=== PATIENT | male | born 1940 | race Caucasian/White ===

== ENCOUNTER → 2016-04-22 | Outpatient (CLI) | payer OTHER ==
[~2016-04-22] MED LIST: EZET10TA63 PO; IBUP-103 PO; LISI-461 PO; LXP/10 PO; MISCTAB78 PO; MULTTAB PO; OMEG10007 PO
--- NOTE | 2016-04-22 10:07 | DIAGNOSTIC IMAGING REPORT ---
KUB CLINICAL HISTORY: N40.1 Benign prostatic hypertrophy with urinary [id number] urinary tract obstruction. Pain. COMPARISON STUDY: 05/03/2011 FINDINGS: The soft tissues, psoas shadows, renal outlines and intestinal gas pattern appear normal. There is no evidence for bowel obstruction. No abnormal abdominal calcifications are seen. IMPRESSION: Normal study. note is made of degenerative changes of the lumbar spine stable from the prior exam Electronically signed by: Crow Arroyo M.D. 04/22/2016 10:06 AM Dictated Date/Time: 04/22/2016 10:05 AM
== END | disposition home or self-care (01) ==
LOC: C.RAD 09:29
PROVIDERS: ATTEND Urology
DX: N40.1 Benign prostatic hyperplasia with lower urinary tract symptoms (principal); M47.816 Spondylosis without myelopathy or radiculopathy, lumbar region

== ENCOUNTER → 2016-07-05 | Outpatient (CLI) | payer OTHER ==
[2016-07-05 12:46] LABS: CHOLESTEROL/HDL RATIO 4.9
[2016-07-05 13:37] LABS: CALCIUM 9.7 mg/dl (8.5-10.1)
[2016-07-05 13:38] LABS: ALT/SGPT 30 U/L (12-78); BLOOD UREA NITROGEN 23 mg/dl (7-18); BUN/CREATININE RATIO 19.3 (10-20); CARBON DIOXIDE 28 mmol/L (21-32); CHLORIDE 105 mmol/L (98-107); GLUCOSE 92 mg/dl (70-99); POTASSIUM 4.5 mmol/L (3.5-5.1); SODIUM 139 mmol/L (136-145)
[2016-07-05 13:41] LABS: ALB/GLOB RATIO 0.9 (0.9-2); ALKALINE PHOSPHATASE 88 U/L (45-117); AST/SGOT 29 U/L (15-37)
== END | disposition home or self-care (01) ==
LOC: C.LABPVFM 10:30
PROVIDERS: ATTEND Family Medicine
DX: E78.2 Mixed hyperlipidemia (principal)

== ENCOUNTER → 2016-08-19 | Outpatient (CLI) | payer OTHER | END | disposition home or self-care (01) | LOC: C.LABSPEC 11:24 | PROVIDERS: ATTEND Urology | DX: R33.9 Retention of urine, unspecified (principal) ==

== ENCOUNTER → 2017-05-31 | Outpatient (CLI) | payer OTHER | END | disposition home or self-care (01) | LOC: C.LABSPEC 17:18 | PROVIDERS: ATTEND Urology | DX: N20.0 Calculus of kidney (principal) ==

== ENCOUNTER → 2017-06-24 | Outpatient (CLI) | payer OTHER ==
[2017-06-24 10:07] LABS: ALBUMIN 3.3 gm/dl (3.4-5.0); ALT/SGPT 46 U/L (12-78); AST/SGOT 35 U/L (15-37); BLOOD UREA NITROGEN 24 mg/dl (7-18); CALCIUM 9.3 mg/dl (8.5-10.1); CARBON DIOXIDE 31 mmol/L (21-32); CREATININE 1.21 mg/dl (0.60-1.40); GLUCOSE 103 mg/dl (70-99); POTASSIUM 4.2 mmol/L (3.5-5.1); SODIUM 138 mmol/L (136-145)
[2017-06-24 10:10] LABS: ALKALINE PHOSPHATASE 99 U/L (45-117); CHOLESTEROL 161 mg/dl (0-200); LDL CHOLESTEROL CALCULATED 98 mg/dl; TOTAL PROTEIN 7.4 gm/dl (6.4-8.2)
== END | disposition home or self-care (01) ==
LOC: C.LAB 08:55
PROVIDERS: ATTEND Neuromusculoskeletal Medicine & OMM
DX: I10 Essential (primary) hypertension (principal); E78.2 Mixed hyperlipidemia

== ENCOUNTER 2022-08-20 04:07 | Inpatient (IN) ==
[2022-08-20] MEDS ORDERED: ASPIRIN CHEW 324 MG PO STA (04:11)
--- NOTE | 2022-08-20 04:52 | Emergency Department Note ---
Impression & Plan Non-ST elevated myocardial infarction (non-STEMI) ED Provider Note CHIEF COMPLAINT: Chest pain HISTORY OF PRESENT ILLNESS: This 82-year-old male patient with past medical history of hypertension, hyperlipidemia, phimosis, GERD, osteoarthritis and prostatic hypertrophy presents to the emergency department with complaints of substernal chest pressure without radiation. Patient states he has had sweats and chills since yesterday. His states he felt quite warm. She did not take his temperature. He did take some Advil but had vomiting shortly thereafter. Patient has not had any significant diarrhea. He denies cough or shortness of breath. REVIEW OF SYSTEMS: A review of systems was performed with positives and pertinent negatives listed in the history of present illness. 10 systems were reviewed and are otherwise negative. ALLERGIES: see below MEDICATIONS: see below PMH: see below SOCIAL HISTORY: see below DDx:Cardiac ischemia, aortic dissection, pulmonary embolism, pneumothorax, pneumonia, pericarditis, myocarditis, esophageal rupture, GERD, cholecystitis, pancreatitis, musculoskeletal, as well as other pathologies. PHYSICAL EXAM: Vital signs reviewed. General: Well-appearing 82-year-old male, in no significant distress. HEENT: No scleral icterus, PERRLA, neck supple. Moist mucous membranes Cardiovascular: Regular rate and rhythm, no extra sounds. Pulmonary: Clear to auscultation bilaterally, normal work of breathing. Abdomen: Soft, nontender, nondistended, positive bowel sounds. Musculoskeletal: Atraumatic, no peripheral edema. Neurologic: Patient awake alert and oriented x 3, speech is clear Skin: Warm, dry, no rash EMERGENCY DEPARTMENT COURSE/MDM: This patient was evaluated and appeared to be in no significant distress. IV access was obtained and laboratory work was drawn. Patient was pain-free at the time of my evaluation. External medical records were reviewed. Patient was given aspirin 324 mg to chew. EKG reveals a nonspecific ST change without elevation. Chest x-ray was performed and to my interpretation reveals pulmonary vascular congestion. He was given 20 mg of IV Lasix. Laboratory work reveals an elevated high-sensitivity troponin at 1700. Patient remained pain-free and was started on IV heparin drip. Case was discussed with the hospitalist service who will evaluate the patient for admission and further management. Patient and were informed of the findings and agreed. MONITORING: An order for cardiac monitoring was placed and the patient is noted to be in a normal sinus rhythm at 86 beats per minute. RADIOLOGY: Chest x-ray to my interpretation reveals pulmonary vascular congestion, otherwise defer to radiology EKG: To my interpretation reveals a sinus rhythm at [address] abnormality. QTc is 419. No PVC, no PAC. DISPOSITION: Home I have personally spent 35 minutes of critical care time in the direct management of this patient. This was a life/limb threatening event. This 35 minutes is in excess of all separately billable procedures. Past Med/Surg History Medical History Actinic keratosis Nephrolithiasis UTI (urinary tract infection) Surgical History S/P tonsillectomy Status post laser lithotripsy of ureteral calculus Family History Grandfather Colorectal cancer Denies family history of Ovarian cancer Prostate cancer Myocardial infarction Breast cancer Social History Smoking Status: Never smoker Tobacco Type: Cigars Age Started Using Tobacco: 14; Age Quit Using Tobacco: 19; Cigarettes Per Day: JUST HERE AND THERE MOSTLY CIGARS; Second Hand Exposure: No; Do You Dip or Chew Tobacco: No; Hx Alcohol Use: No Hx Substance Use: No Preferred Language: Northern Irish Communication Ability: Effective Visual Impairment: No Limitations Hearing Ability: Use of Hearing Aid marital status: Current Living Situation: Spouse current occupational status: retired 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 Feels Safe at Home: Yes Childhood Exposure to Second-Hand Smoke: No Diet: regular Dental Care, Regularly: Yes Physical Activity Frequency: 5-6 Times per Week Seatbelt Use: always Sunscreen Use: Yes Allergies Allergies Allergy/AdvReac Type Severity Reaction Status Date / Time ragweed pollen Allergy Verified 08/04/22 09:53 Tetracyclines Allergy Verified 08/04/22 09:53 Home Meds Home Medications Medication Instructions Recorded Confirmed vitamins A,C,Y-xqnc-iblhdk 4,296 1 cap PO BID 12/13/18 08/04/22 mcg-226 mg-90 mg capsule (PreserVision AREDS) glucosamine [id number] 1 tab PO DAILY 12/15/18 08/04/22 frank 1,500 mg-400 unit-100 mg tablet (Osteo Bi-Flex (5-Loxin)) omega-3 fatty acids 1,000 mg 1,000 mg PO DAILY 12/15/18 08/04/22 capsule Previous Rx's Medication Instructions Recorded varicella-zoster glycoE [id number] 0.5 ml IM .COMPLEX #1 ea 08/26/21 adj(PF) 50 mcg/0.5 mL IM susp, kit (Shingrix (PF)) finasteride 5 mg tablet 5 mg PO DAILY #90 tabs 10/15/21 lisinopril 10 mg tablet See Rx Instructions .Route 01/07/22 .COMPLEX #90 tabs desonide 0.05 % topical ointment 1 applic topical BID #15 grams 01/22/22 diclofenac sodium 1 % topical gel 2 g topical QID PRN pain, moderate 02/25/22 #100 grams escitalopram oxalate 10 mg tablet 10 mg PO DAILY #90 tabs 06/04/22 (Lexapro) ezetimibe 10 mg tablet 10 mg PO DAILY #90 tabs 06/04/22 nitrofurantoin 100 mg PO Q12H 10 days #20 caps 08/09/22 monohydrate/macrocrystals 100 mg capsule (Macrobid) Results & Data (ED) Vital Signs Vital Signs - 24 hr 08/20/22 04:13 08/20/22 04:21 08/20/22 04:19 Temperature 37.6 C H Temperature Source Oral Pulse Rate 85 85 Respiratory Rate 20 18 Respiratory Effort / Characteristics Non-Labored Spontaneous Respiratory Depth Normal Blood Pressure 160/83 H Blood Pressure Mean 108 Pulse Oximetry 93 93 92 Oxygen Delivery Method Room Air Room Air Room Air Sepsis Recent Fever Within 48 Hours Yes Sepsis New/Unexplained Change in Mental Status N/A Sepsis Action Taken by Nursing No Action Required 08/20/22 04:30 08/20/22 04:20 Temperature Temperature Source Pulse Rate 86 89 Respiratory Rate 24 Respiratory Effort / Characteristics Respiratory Depth Blood Pressure 154/85 H Blood Pressure Mean 108 Pulse Oximetry 90 Oxygen Delivery Method Room Air Sepsis Recent Fever Within 48 Hours Sepsis New/Unexplained Change in Mental Status Sepsis Action Taken by Snf Medications Current Medication List: was personally reviewed by me Laboratory Data Attestation: I reviewed the patient's lab results. 08/20/22 04:26 08/20/22 04:27 Lab Results 08/20/22 08/20/22 08/20/22 Range/Units 04:26 04:26 04:27 WBC 11.64 H (4.8-10.8) K/ul RBC 4.74 (4.70-6.10) M/uL Hgb 14.8 (14.0-18.0) g/dl Hct 41.8 L (42.0-52.0) % MCV 88.2 (80.0-100.0) fL MCH 31.2 (25.0-34.0) pg MCHC 35.4 (32.0-36.0) g/dL RDW Std Deviation 43.7 (36.4-46.3) fL RDW Coeff of Bart 13.4 (11.5-14.5) % Plt Count 163 (130-400) K/uL MPV 11.2 (9.4-12.4) fL Immature Gran % (Auto) 0.3 % Neut % (Auto) 80.7 % Lymph % (Auto) 8.2 % Larimer % (Auto) 7.7 % Eos % (Auto) 3.0 % Baso % (Auto) 0.1 % Neut # (Auto) 9.40 H (1.40-6.50) K/uL Lymph # (Auto) 0.95 L (1.2-3.4) K/uL Larimer # (Auto) 0.90 H (0.11-0.59) K/uL Eos # (Auto) 0.35 (0-0.50) K/uL Baso # (Auto) 0.01 (0-0.2) K/uL Immature Gran # (Auto) 0.03 (0.01-0.20) K/uL APTT (21.0-31.0) Seconds PTT Ratio Sodium 135 L (136-145) mmol/L Potassium 4.2 (3.5-5.1) mmol/L Chloride 102 (98-107) mmol/L Carbon Dioxide 23 (21-32) mmol/L Anion Gap 10 (3-11) BUN 30 H (6-23) mg/dl Creatinine 1.09 (0.6-1.4) mg/dl Est Cr Clr Drug Dosing 58.6 ml/min Est GFR ( Amer) 71.9 ml/min Est GFR (Non-Af Amer) 62.0 ml/min BUN/Creatinine Ratio 27.5 H (10-20) Glucose 115 H (70-99(Fasting)) mg/dl Calcium 9.3 (8.6-10.3) mg/dl Total Bilirubin 0.8 (0.2-1.0) mg/dl AST 50 H (13-39) U/L ALT 30 (7-52) U/L Alkaline Phosphatase 66 (34-104) U/L Troponin I High Sens 1718.3 H* (0-20) pg/ml Total Protein 7.3 (6.0-8.3) gm/dl Albumin 3.6 (3.4-5.0) gm/dl Globulin 3.7 (2.5-4.0) gm/dl Albumin/Globulin Ratio 1.0 (0.9-2) Lipase 13 (11-82) U/L SARS-CoV-2, RNA, NAAT NEGATIVE (NEGATIVE) 08/20/22 Range/Units 04:27 WBC (4.8-10.8) K/ul RBC (4.70-6.10) M/uL Hgb (14.0-18.0) g/dl Hct (42.0-52.0) % MCV (80.0-100.0) fL MCH (25.0-34.0) pg MCHC (32.0-36.0) g/dL RDW Std Deviation (36.4-46.3) fL RDW Coeff of Bart (11.5-14.5) % Plt Count (130-400) K/uL MPV (9.4-12.4) fL Immature Gran % (Auto) % Neut % (Auto) % Lymph % (Auto) % Larimer % (Auto) % Eos % (Auto) % Baso % (Auto) % Neut # (Auto) (1.40-6.50) K/uL Lymph # (Auto) (1.2-3.4) K/uL Larimer # (Auto) (0.11-0.59) K/uL Eos # (Auto) (0-0.50) K/uL Baso # (Auto) (0-0.2) K/uL Immature Gran # (Auto) (0.01-0.20) K/uL APTT 27.9 (21.0-31.0) Seconds PTT Ratio 1.0 Sodium (136-145) mmol/L Potassium (3.5-5.1) mmol/L Chloride (98-107) mmol/L Carbon Dioxide (21-32) mmol/L Anion Gap (3-11) BUN (6-23) mg/dl Creatinine (0.6-1.4) mg/dl Est Cr Clr Drug Dosing ml/min Est GFR ( Amer) ml/min Est GFR (Non-Af Amer) ml/min BUN/Creatinine Ratio (10-20) Glucose (70-99(Fasting)) mg/dl Calcium (8.6-10.3) mg/dl Total Bilirubin (0.2-1.0) mg/dl AST (13-39) U/L ALT (7-52) U/L Alkaline Phosphatase (34-104) U/L Troponin I High Sens (0-20) pg/ml Total Protein (6.0-8.3) gm/dl Albumin (3.4-5.0) gm/dl Globulin (2.5-4.0) gm/dl Albumin/Globulin Ratio (0.9-2) Lipase (11-82) U/L SARS-CoV-2, RNA, NAAT (NEGATIVE) Administered Medications Heparin Sodium/Dextrose (Heparin Sodium/Dextrose) 25,000 units in 500 mls @ 20 mls/hr IV .Q24H [facility]; Protocol Stop: 09/19/22 05:44 Last Admin: 08/20/22 06:15 Dose: 1,000 units/hr, 20 mls/hr Documented By: ОЛЕГ Co-signed By: BS Discontinued Medications Aspirin (Aspirin Chew 324 Mg) 324 mg PO NOW STA Stop: 08/20/22 04:12 Last Admin: 08/20/22 04:23 Dose: 324 mg Documented By: ОЛЕГ Furosemide (Furosemide Inj 20 Mg/2 Ml Vial) 20 mg IV NOW STA Stop: 08/20/22 05:42 Last Admin: 08/20/22 06:02 Dose: 20 mg Documented By: ОЛЕГ Heparin Sodium (Porcine) (Heparin Sod (Porcine) 1000 Unit/Ml) 1 units IV NOW ONE Stop: 08/20/22 05:36 Last Admin: 08/20/22 06:14 Dose: 4,000 units Documented By: ОЛЕГ Co-signed By: GABRIELA Ondansetron HCl (Ondansetron Inj 2 Mg/Ml 2 Ml Vial) 4 mg IV NOW STA Stop: 08/20/22 05:43 Last Admin: 08/20/22 06:02 Dose: 4 mg Documented By: ОЛЕГ Discharge Plan Visit Data Chief Complaint: Chest Pain Stated Complaint: EXTREME CHEST PAIN ED Provider: Deb Hopkins Discharge Problem: Non-ST elevated myocardial infarction (non-STEMI) Forms Stand Alone Forms: My [facility] Prescriptions Prescriptions: No Action finasteride 5 mg tablet 5 mg PO DAILY Qty: 90 3RF lisinopril 10 mg tablet See Rx Instructions .ROUTE .COMPLEX Qty: 90 3RF Dose Instruction: TAKE 1 TABLET BY MOUTH DAILY Rx Instructions: TAKE 1 TABLET BY MOUTH DAILY diclofenac sodium 1 % gel 2 g topical QID PRN (Reason: pain, moderate) Qty: 100 5RF ezetimibe 10 mg tablet 10 mg PO DAILY Qty: 90 1RF escitalopram oxalate [Lexapro] 10 mg tablet 10 mg PO DAILY Qty: 90 1RF nitrofurantoin monohyd/m-cryst [Macrobid] 100 mg capsule 100 mg PO Q12H 10 Days Qty: 20 0RF Rx Instructions: must administer with a meal/food PreserVision AREDS 14,320-226-200 kjyp-hi-yzct capsule 1 cap PO BID rrlypkryvhm-M5-Cyntwvcoy serr [Osteo Bi-Flex (5-Loxin)] 1,500-400-100 mg-unit-mg tablet 1 tab PO DAILY omega-3 fatty acids 1,000 mg capsule 1,000 mg PO DAILY Shingrix (PF) 50 mcg/0.5 mL suspension for reconstitution 0.5 ml IM .COMPLEX Qty: 1 1RF Rx Instructions: 0.5 mL IM Apply once and then again 2-6 months later; desonide 0.05 % ointment 1 applic topical BID Qty: 15 0RF Rx Instructions: Apply sparingly to areas of the face twice daily as needed. Referrals Referrals: Teodoro Hooks, [Primary Care Provider] -
[2022-08-20 04:55] LABS: Basophils # (auto) 0.01 K/uL (0-0.2); Basophils % (auto) 0.1 %; Eosinophils # (auto) 0.35 K/uL (0-0.50); Hematocrit (blood only) 41.8 % (42.0-52.0); Hemoglobin 14.8 g/dl (14.0-18.0); Immature Granulocytes # (auto) 0.03 K/uL (0.01-0.20); Immature Granulocytes % (auto) 0.3 %; Lymphocytes # (auto) 0.95 K/uL (1.2-3.4); Lymphocytes % (auto) 8.2 %; Mean Corpuscular Hemoglobin 31.2 pg (25.0-34.0); Mean Corpuscular Hgb Conc 35.4 g/dL (32.0-36.0); Mean Corpuscular Volume 88.2 fL (80.0-100.0); Mean Platelet Volume 11.2 fL (9.4-12.4); Monocytes % (auto) 7.7 %; Neutrophils % (auto) 80.7 %; Platelet Count 163 K/uL (130-400); RDW Coefficient of Variation 13.4 % (11.5-14.5); RDW Standard Deviation 43.7 fL (36.4-46.3); Red Blood Count 4.74 M/uL (4.70-6.10); White Blood Count 11.64 K/ul (4.8-10.8)
[2022-08-20 05:03] LABS: Albumin Level 3.6 gm/dl (3.4-5.0); BUN Creatinine Ratio 27.5 (10-20); Bilirubin,Total 0.8 mg/dl (0.2-1.0); Calcium 9.3 mg/dl (8.6-10.3); Creatinine Clr Calc Pharmacy 58.6 ml/min; Est GFR (African American) 71.9 ml/min; Globulin 3.7 gm/dl (2.5-4.0); Potassium 4.2 mmol/L (3.5-5.1); Total Protein 7.3 gm/dl (6.0-8.3)
[2022-08-20] MEDS ORDERED: Heparin IV Adult Wt-Based Low-Dose WITH Bolus Protocol STA (05:20)
[2022-08-20 05:22] LABS: Troponin I High Sensitivity 1718.3 pg/ml (0-20)
[2022-08-20] MEDS ORDERED: HEPARIN SOD (PORCINE) 1000 UNIT/ML IV ONE (05:35)
[2022-08-20] MEDS ORDERED: FUROSEMIDE INJ 20 MG/2 ML VIAL IV STA (05:41)
[2022-08-20] MEDS ORDERED: ONDANSETRON INJ 2 MG/ML 2 ML VIAL IV STA (05:42)
[2022-08-20 06:00] LABS: Partial Thromboplastin Time 27.9 Seconds (21.0-31.0)
[2022-08-20] MEDS: HEPARIN SODIUM/DEXTROSE 25,000 UNITS/500 ML BAG IV SCH (06:15)
--- NOTE | 2022-08-20 07:41 | XRay Report ---
XR chest 1V portable CLINICAL HISTORY: Chest pain, nonspecific TECHNIQUE: Single frontal radiograph of the chest was obtained. Comparison: None available at the time of this dictation. FINDINGS: No lines and tubes are seen. Cardiomegaly is noted. The aortic arch is calcified. Prominence and ceph alization of the vasculature is seen. Right lower lung density likely represents a calcified granulom a. No evidence of pleural effusion or pneumothorax. IMPRESSION: Cardiomegaly and mild pulmonary edema. ACT 112: Negative or not required by law. Electronically signed by: Jose Devries M.D. 08/20/2022 7:40 AM
--- NOTE | 2022-08-20 08:43 | Electrocardiogram Report ---
Test Reason : Blood Pressure : / mmHG Vent. Rate : 080 BPM Atrial Rate : 080 BPM P-R Int : 164 ms QRS Dur : 088 ms QT Int : 364 ms P-R-T Axes : 024 -16 014 degrees QTc Int : 419 ms Normal sinus rhythm Minor ST depression in Anterolateral leads Abnormal ECG When compared with ECG of 04-OCT-2011 07:57, ST now depressed in Anterolateral leads Confirmed by El Muro ([id number]) on 08/20/2022 8:43:14 AM Referred By: REFERRED SELF Confirmed By:El Muro
[2022-08-20] MEDS ORDERED: MoRPHine SULFATE 2 MG/ML CARP IV PRN (08:54)
[2022-08-20] MEDS ORDERED: ALUMINUM/MAGNESIUM SUSP 30 ML UDC PO PRN (08:54)
[2022-08-20] MEDS ORDERED: NITROGLYCERIN SL 0.4 MG/TAB TAB SL PRN (08:54)
[2022-08-20] MEDS ORDERED: ACETAMINOPHEN 325 MG TAB PO PRN (08:54)
[2022-08-20] MEDS ORDERED: ONDANSETRON INJ 2 MG/ML 2 ML VIAL IV PRN (08:54)
[2022-08-20] MEDS: ASPIRIN 81 MG ECTAB PO SCH (09:58)
[2022-08-20] MEDS: ESCITALOPRAM OXALATE 10 MG TAB PO SCH (09:58)
[2022-08-20] MEDS: EZETIMIBE 10 MG TABLET PO SCH (09:59)
[2022-08-20] MEDS: FINASTERIDE 5 MG TAB PO SCH (09:59)
[2022-08-20] MEDS: lisinopril 10 MG TAB PO SCH (09:59)
--- NOTE | 2022-08-20 10:35 | Electrocardiogram Report ---
Test Reason : Blood Pressure : / mmHG Vent. Rate : 070 BPM Atrial Rate : 070 BPM P-R Int : 176 ms QRS Dur : 102 ms QT Int : 404 ms P-R-T Axes : 023 -20 040 degrees QTc Int : 436 ms Normal sinus rhythm Nonspecific ST abnormality Anterolateral leads When compared with ECG of 20-AUG-2022 04:14, ST depression in Anterolateral leads less pronounced Confirmed by El Muro ([id number]) on 08/20/2022 10:35:08 AM Referred By: REFERRED SELF Confirmed By:El Muro
--- NOTE | 2022-08-20 11:51 | History & Physical Report ---
Date of Service August 20, 2022 Assessment & Plan (1) Non-ST elevated myocardial infarction (non-STEMI): Plan: Elevated troponin with some lateral ST changes Concern for NSTEMI placed on heparin drip echocardiogram pending cardiology evaluation patient was given aspirin in the emergency department he continues on 81 a day With history of chronic control hypertension continues on lisinopril at this time . Lipidemia on Zetia History of BPH with lower urinary systems remains on Proscar. Depression patient is on Lexapro. Given low-grade temperature on presentation cardiology is hesitant to pursue catheterization to this end we will check secondary causes for metabolic issues trend his troponins and check inflammatory markers for the morning consideration of could be viral myocarditis Admission and Anticipated Discharge Date Admission Date: August 20, 2022 History of Present Illness Primary Care Provider: Teodoro Hooks, DO 82 M presents with feeling of fatigue, restlessness but not classic anginal symptoms, did vomit after taking advil. IN the Er found to have an elevated hst roponin to 1700, perhaps some lateral st changes. Pt had low grade temperature on admission, thus cardiology wishes to eval infectious etiology currently is symptom free on heparin gtt Allergies Allergy/AdvReac Type Severity Reaction Status Date / Time ragweed pollen Allergy Verified 08/20/22 12:39 Tetracyclines Allergy Verified 08/20/22 12:39 Home Medications Medication Instructions Recorded Confirmed Type vitamins A,C,B-qrso-laypdt 4,296 1 cap PO BID 12/13/18 08/20/22 History mcg-226 mg-90 mg capsule (PreserVision AREDS) glucosamine WTn-N8-Spuidvqfs 1 tab PO DAILY 12/15/18 08/20/22 History frank 1,500 mg-400 unit-100 mg tablet (Osteo Bi-Flex (5-Loxin)) omega-3 fatty acids 1,000 mg 1,000 mg PO DAILY 12/15/18 08/20/22 History capsule finasteride 5 mg tablet 5 mg PO DAILY #90 tabs 10/15/21 08/20/22 Rx lisinopril 10 mg tablet See Rx Instructions .Route 01/07/22 08/20/22 Rx .COMPLEX #90 tabs desonide 0.05 % topical ointment 1 applic topical BID #15 grams 01/22/22 08/20/22 Rx diclofenac sodium 1 % topical gel 2 g topical QID PRN pain, moderate 02/25/22 08/20/22 Rx #100 grams escitalopram oxalate 10 mg tablet 10 mg PO DAILY #90 tabs 06/04/22 08/20/22 Rx (Lexapro) ezetimibe 10 mg tablet 10 mg PO DAILY #90 tabs 06/04/22 08/20/22 Rx Past Med/Surg History Medical History Actinic keratosis Nephrolithiasis UTI (urinary tract infection) Surgical History S/P tonsillectomy Status post laser lithotripsy of ureteral calculus Family History Grandfather Colorectal cancer Denies family history of Ovarian cancer Prostate cancer Myocardial infarction Breast cancer Social History Smoking Status: Never smoker Tobacco Type: Cigars Age Started Using Tobacco: 14; Age Quit Using Tobacco: 19; Cigarettes Per Day: JUST HERE AND THERE MOSTLY CIGARS; Second Hand Exposure: No; Do You Dip or Chew Tobacco: No; Hx Alcohol Use: No Hx Substance Use: No Preferred Language: Portuguese Communication Ability: Effective Visual Impairment: No Limitations Hearing Ability: Use of Hearing Aid Private Inquiry Agent Required: No Beliefs That Will Affect Care: None marital status: Current Living Situation: Spouse current occupational status: retired 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 He appeared his stated age Vital signs as documented. Head exam is normocephalic atraumatic Neck is without JVD, thyromegaly, or carotid bruits. Lungs are clear to auscultation, no focal loss of breath sounds Cardiac exam, Rhythm is regular.. No murmurs, rubs or gallops. Abdominal exam reveals normal bowel sounds, soft non tender, no masses Extremities are nonedematous and both pedal pulses are present Neurologic exam is alert and oriented, no focal loss of strength or sensation Skin is without bruises or rashes Psychologically is without concerns for anxiety or depression.. Results & Data Results & Data Vital Signs (Past 12 Hours) Vital Signs Temp Pulse Pulse Resp BP BP Pulse Ox 08/20/22 11:38 97.7 F 56 L 18 128/73 90 08/20/22 09:25 66 08/20/22 08:56 08/20/22 08:50 97.3 F L 65 16 132/81 93 08/20/22 08:26 65 20 115/73 94 08/20/22 07:28 68 20 142/85 H 93 08/20/22 07:23 94 H 08/20/22 07:03 78 20 142/85 H 93 08/20/22 06:00 85 23 126/86 08/20/22 05:30 80 22 140/78 93 08/20/22 05:00 83 23 158/101 H 92 08/20/22 04:20 89 08/20/22 04:30 86 24 154/85 H 90 08/20/22 04:19 85 18 92 08/20/22 04:21 93 08/20/22 04:13 99.7 F H 85 20 160/83 H 93 O2 Del Method O2 Flow Rate 08/20/22 11:38 Room Air 08/20/22 09:25 08/20/22 08:56 Room Air, Nasal Cannula 2 08/20/22 08:50 Room Air 08/20/22 08:26 Nasal Cannula 2 08/20/22 07:28 Nasal Cannula 2 08/20/22 07:23 08/20/22 07:03 Room Air 08/20/22 06:00 08/20/22 05:30 Nasal Cannula 3 08/20/22 05:00 Nasal Cannula 1 08/20/22 04:20 08/20/22 04:30 Room Air 08/20/22 04:19 Room Air 08/20/22 04:21 Room Air 08/20/22 04:13 Room Air Laboratory Results Reviewed CBC reviewed chemistry reviewed troponin Code Status & VTE Plan VTE Prophylaxis Plan VTE Prophylaxis will be ordered: Yes PG Care Time/CCT Total # of Minutes Spent Total Time Spent with Patient: Total time spent is greater than 50% in coordination of care (as documented) at patient's floor/unit and/or counseling patient: Coding Level of Care Code 18688 INT INP/OBS CARE MIN Diagnoses Non-ST elevated myocardial infarction (non-STEMI) I21.4
--- NOTE | 2022-08-20 12:57 | Cardiology Consultation ---
Date of Consultation August 20, 2022 Assessment & Plan (1) Non-ST elevated myocardial infarction (non-STEMI): (2) Pyuria: (3) Leukocytosis: (4) Elevated temperature: Plan 82-year-old man with no prior cardiac history developed chest pain in the context of "shaking chills" and recent pyuria. Most likely, he does have significant underlying coronary artery disease based on demographic of advanced age alone, however it is not clear whether this is demand ischemia from the acute stress of illness or whether he in fact had a non-ST elevation MT as a primary event. Either way, in the absence of ongoing symptoms would be reluctant to send to cardiac catheterization with some risk of underlying bacteremia/infection. Fortunately, his troponin level was declining upon admission and he has been free of chest pain thus far during his hospitalization. Would continue aspirin, heparin, and lisinopril. Could hold on beta-jourdan given borderline bradycardia currently. Add statin at some point. Would monitor over the weekend and see if he declares either further signs of infection (check urinalysis, obtain blood cultures if any fevers) or an acute coronary syndrome. If there is no evidence of infection, could consider stress study or cardiac catheterization on Tuesday. If he develops recurrent chest pain with associated ECG changes, urgent cath might be required. Will ask Drs. Alegria/Odalys to check on the patient's status over the weekend. History of Present Illness Reason for Consultation: nstemi Requesting Physician: Ubaldo Lopez MD Attending Physician: Maximiliano Beauchamp MD History of Present Illness 82-year-old man with no prior cardiac history recently treated for initially asymptomatic urinary tract infection (still on nitrofurantoin) who had 2 separate episodes of "shaking chills" during which he experienced central chest discomfort, he felt well in between but after the second episode he reported to the emergency department where he had an elevated troponin (initially 1718, subsequently 1455), mildly dynamic anterolateral ST depression, and questionable mild pulmonary congestion on chest x-ray. At recent baseline, he is an active sy performing heavy physical activity with no constraints. He denies any baseline chest discomfort, dyspnea on exertion, palpitations, presyncope, or syncope. Around 2 AM yesterday morning he experienced his first episode of chills with associated chest discomfort, subsequently he vomited and felt better. During the day, he was able to eat without difficulty, his noted that she "pushed fluids" with Gatorade due to concerns about volume depletion after vomiting. He had no diarrhea. Earlier this morning he awoke with further chills and chest discomfort, in the emergency department his initial temperature was 99.7 and his white count was 11.64. Prior to these 2 episodes of chills/chest discomfort he was feeling well [place]. He denied any dyspnea on exertion, weight change, orthopnea, or PND. His noted that he "felt warm" but did not take his temperature at home. He denies any cough. At the time of his ER visit, he no longer had any chest pain. He has remained chest pain free since. Of note, the patient has had mild confusion and forgetfulness over the past day or so (for example, he did not remember having awoken with chills and chest pain the night before last), his notes that this forgetfulness/confusion is new for him, but a Mini-Mental status test from last year was abnormal. Patient had no somatic complaints at the time of my evaluation. Allergies Allergy/AdvReac Type Severity Reaction Status Date / Time ragweed pollen Allergy Verified 08/20/22 12:39 Tetracyclines Allergy Verified 08/20/22 12:39 Home Medications Medication Instructions Recorded Confirmed Type vitamins A,C,F-wapy-bxopan 4,296 1 cap PO BID 12/13/18 08/20/22 History mcg-226 mg-90 mg capsule (PreserVision AREDS) glucosamine [id number] 1 tab PO DAILY 12/15/18 08/20/22 History frank 1,500 mg-400 unit-100 mg tablet (Osteo Bi-Flex (5-Loxin)) omega-3 fatty acids 1,000 mg 1,000 mg PO DAILY 12/15/18 08/20/22 History capsule finasteride 5 mg tablet 5 mg PO DAILY #90 tabs 10/15/21 08/20/22 Rx lisinopril 10 mg tablet See Rx Instructions .Route 01/07/22 08/20/22 Rx .COMPLEX #90 tabs desonide 0.05 % topical ointment 1 applic topical BID #15 grams 01/22/22 08/20/22 Rx diclofenac sodium 1 % topical gel 2 g topical QID PRN pain, moderate 12/08/22 0 08/20/22 Rx #100 grams escitalopram oxalate 10 mg tablet 10 mg PO DAILY #90 tabs 06/04/22 08/20/22 Rx (Lexapro) ezetimibe 10 mg tablet 10 mg PO DAILY #90 tabs 06/04/22 08/20/22 Rx Patient History Medical History Actinic keratosis Nephrolithiasis UTI (urinary tract infection) Surgical History S/P tonsillectomy Status post laser lithotripsy of ureteral calculus Family History Grandfather Colorectal cancer Denies family history of Ovarian cancer Prostate cancer Myocardial infarction Breast cancer Social History Smoking Status: Never smoker Tobacco Type: Cigars Age Started Using Tobacco: 14; Age Quit Using Tobacco: 19; Cigarettes Per Day: JUST HERE AND THERE MOSTLY CIGARS; Second Hand Exposure: No; Do You Dip or Chew Tobacco: No; Hx Alcohol Use: No Hx Substance Use: No Preferred Language: Icelandic Communication Ability: Effective Visual Impairment: No Limitations Hearing Ability: Use of Hearing Aid Speed Belt Sander Tender Required: No Beliefs That Will Affect Care: None marital status: Current Living Situation: Spouse current occupational status: retired 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 Currently afebrile, 97.7 degrees. BP normotensive. Pulse 56 bpm and regular. Skin: no ecchymoses or generalized lesions. HEENT: unremarkable. Neck: JVP at the clavicle at 90 degrees, no carotid bruits. Lungs: clear. Cardiac: regular rhythm, normal S1-2, no murmur. Abdomen: benign. Extremities: no edema, pulses intact. Neurologic: normal affect, hard of hearing, forgetful but otherwise appropriate conversation, grossly nonfocal. Results & Data Laboratory Results Troponin and WBC as per HPI. Normal hemoglobin and platelet count. Sodium 135, otherwise normal electrolytes, BUN 30, creatinine 1.09. Diagnostic Findings Chest x-ray was read as "cardiomegaly and mild pulmonary edema". To my eye, this is a soft call, with no evidence of effusions and some vascular crowding that could be related to inspiratory effort. Initial ECG showed sinus rhythm with 0.[address] depression in the anterolateral leads, this is new compared with 2012 ECG. Repeat ECG shows sinus rhythm with some baseline wander complicating interpretation, there still appears to be mild anterolateral ST depression but it is perhaps less pronounced. PG Care Time/CCT Total # of Minutes Spent Total Time Spent with Patient: Total time spent is greater than 50% in coordination of care (as documented) at patient's floor/unit and/or counseling patient: Coding Level of Care Code 45718 IN/OBS CONSULT LVL 4,60M Diagnoses Non-ST elevated myocardial infarction (non-STEMI) I21.4 Pyuria R82.81 Leukocytosis D72.829 Elevated temperature R50.9
--- NOTE | 2022-08-20 14:45 | XCELERA ---
[id number]
[2022-08-20 15:44] LABS: Appearance Urine Clear (Clear); Bilirubin Urine Negative (Negative); Blood Urine Negative (Negative); Color Urine Yellow; Glucose Urine UA Negative (Negative); Ketones Urine Negative (Negative); Leukocyte Esterase Urine Negative (Negative); Nitrite Urine Negative (Negative); Protein Urine Negative (Negative); Specific Gravity Urine 1.012 (1.000-1.030); Urobilinogen Urine Negative (Negative)
[2022-08-20 16:55] LABS: Partial Thromboplastin Ratio 2.1
[2022-08-20 17:05] LABS: Partial Thromboplastin Time 58.7 Seconds (21.0-31.0)
--- NOTE | 2022-08-21 06:45 | Electrocardiogram Report ---
Test Reason : Blood Pressure : / mmHG Vent. Rate : 050 BPM Atrial Rate : 050 BPM P-R Int : 180 ms QRS Dur : 100 ms QT Int : 462 ms P-R-T Axes : 028 -05 050 degrees QTc Int : 421 ms Sinus bradycardia Otherwise normal ECG When compared with ECG of 20-AUG-2022 08:07, No significant change was found Confirmed by Damien Alegria ([id number]) on 08/21/2022 6:44:45 AM Referred By: REFERRED SELF Confirmed By:Jose Alegria
[2022-08-21] MEDS: HEPARIN SODIUM/DEXTROSE 25,000 UNITS/500 ML BAG IV SCH (07:08)
[2022-08-21 07:40] LABS: Hematocrit (blood only) 38.3 % (42.0-52.0); Hemoglobin 13.6 g/dl (14.0-18.0); Mean Corpuscular Hemoglobin 31.6 pg (25.0-34.0); Mean Corpuscular Hgb Conc 35.5 g/dL (32.0-36.0); Mean Corpuscular Volume 88.9 fL (80.0-100.0); Mean Platelet Volume 11.7 fL (9.4-12.4); Platelet Count 151 K/uL (130-400); RDW Coefficient of Variation 13.6 % (11.5-14.5); RDW Standard Deviation 44.4 fL (36.4-46.3); Red Blood Count 4.31 M/uL (4.70-6.10); White Blood Count 4.76 K/ul (4.8-10.8)
[2022-08-21 07:45] LABS: BUN Creatinine Ratio 26.1 (10-20); C Reactive Protein 7.72 mg/dl (0-0.5); Calcium 9.2 mg/dl (8.6-10.3); Creatinine Clr Calc Pharmacy 54.5 ml/min; Est GFR (African American) 67.4 ml/min; Est GFR (Non-African American) 58.1 ml/min; Potassium 3.7 mmol/L (3.5-5.1)
[2022-08-21 08:11] LABS: Partial Thromboplastin Ratio 2.1
[2022-08-21] MEDS: lisinopril 10 MG TAB PO SCH (08:20)
[2022-08-21] MEDS: EZETIMIBE 10 MG TABLET PO SCH (08:20)
[2022-08-21] MEDS: ASPIRIN 81 MG ECTAB PO SCH (08:20)
[2022-08-21] MEDS: ESCITALOPRAM OXALATE 10 MG TAB PO SCH (08:20)
[2022-08-21] MEDS: FINASTERIDE 5 MG TAB PO SCH (08:20)
--- NOTE | 2022-08-21 08:23 | Hospitalist Progress Note ---
Date of Service August 21, 2022 Assessment & Plan (1) Non-ST elevated myocardial infarction (non-STEMI): Plan: Cardiology consulted. Unclear if this is an underlying significant coronary event or demand ischemia from acute stress/infection They recommend continuing on heparin drip over the weekend and if no further manifestation of infection, consider cardiac catheterization and or chemical stress test on Tuesday Continue to monitor on telemetry Patient does continue with some bradycardia. Current rate is around 54 bpm. Review of telemetry indicates rate as low as 47 bpm. Patient unaware of bradycardia. Denies any presyncope Currently not on beta-jourdan Continue LEILA inhibitor and aspirin (2) Elevated temperature: Plan: Leukocytosis has resolved C-reactive protein is elevated 7.72 mg/Severo Patient afebrile the entire visit Urine culture 08/04/2022 with coag negative Staphylococcus No current cultures No indication for antibiotics at this time (3) Enlarged prostate with lower urinary tract symptoms (LUTS): Plan: Continue finasteride (4) Benign essential hypertension: Plan: Continue lisinopril 10 mg p.o. daily Currently hemodynamically stable (5) Depression: Plan: Seems to be well controlled. Continue Escitalopram 10 mg p.o. daily (6) Mixed hyperlipidemia: Plan: Continue ezetimibe Outpatient management (7) Chronic reflux esophagitis: Plan: No acute complaints of midepigastric pain or "heartburn" Patient is not on PPI or histamine 2 jourdan Due to advanced age, continue with aspiration precautions and avoid food 4 hours before bedtime Plan Continue inpatient stay over the weekend on telemetry. Patient to be evaluated for appropriateness of cardiac catheterization or chemical stress test on Tuesday. Admission and Anticipated Discharge Date Admission Date: August 20, 2022 Subjective Attending: Dr. Harp This is an 82-year-old male that was admitted yesterday for non-ST elevated ND. Patient was found to have elevated troponin with some lateral ST changes. Patient was started on heparin drip. He was also continued on aspirin daily. Patient has low-grade fever on the day of admission. Cardiology was hesitant to pursue catheterization. Cardiology continues to follow. Echocardiogram performed yesterday reveals preserved left ventricular ejection fraction of 55 to 60%. No regional wall motion abnormalities were noted. Patient does have moderate mitral regurgitation. Trivial posterior pericardial effusion. Regarding the fever, patient has no leukocytosis. CRP is elevated at 7.72. Urinalysis is negative. No procalcitonin. Chest x-ray shows no evidence of opacification or consolidation. There is no appreciation of pleural effusions or pneumothoraces. Mild pulmonary edema. No evidence of atelectasis. Patient is currently not on any antibiotics. Tmax is 37.6 C 08/20/2022 at 04:13. Patient continues to remain afebrile on review of vital signs overnight. Patient seen at bedside with his and son. No further chest pain or tightness. Afebrile. Patient continues on heparin drip. At this time, cardiology is waiting to determine appropriateness for catheterization. Patient has not been seen by cardiology as of the time of my evaluation. Patient has no other acute complaints Review of Systems Review of Systems: A total of 10 systems was reviewed and is negative other than as listed in the HPI Physical Exam Physical Exam: GENERAL : No acute distress EYES: No icterus, gaze conjugate NOSE: No evidence of epistaxis MOUTH: No lesions or candidiasis NECK: Supple LUNGS: CTA B/L, no wheezes, rales or rhonchi HEART: Regular, rate controlled ABDOMEN: Soft, NT, ND, BS Present EXTREMITIES: No LE edema, pedal pulses intact NEURO: A&OX3 Results & Data Results & Data Vital Signs (Past 12 Hours) Vital Signs Temp Pulse Pulse Resp BP Pulse Ox O2 Del Method 08/21/22 07:06 36.8 C 51 L 17 132/75 91 Room Air 08/21/22 02:56 36.6 C 59 L 18 108/64 92 Room Air 08/20/22 22:00 47 L 08/20/22 23:34 36.6 C 57 L 18 106/64 91 Room Air Critical Care Results & Data Vital Signs (Past 12 Hours) Vital Signs Temp Pulse Pulse Resp BP Pulse Ox O2 Del Method 08/21/22 07:06 36.8 C 51 L 17 132/75 91 Room Air 08/21/22 02:56 36.6 C 59 L 18 108/64 92 Room Air 08/20/22 22:00 47 L 08/20/22 23:34 36.6 C 57 L 18 106/64 91 Room Air Lab & Micro Results (Past 24 Hours) RBC 4.31 M/uL (4.70-6.10) L 08/21/22 WBC 4.76 K/ul (4.8-10.8) L 08/21/22 Hgb 13.6 g/dl (14.0-18.0) L 08/21/22 Hct 38.3 % (42.0-52.0) L 08/21/22 MCV 88.9 fL (80.0-100.0) 08/21/22 MCH 31.6 pg (25.0-34.0) 08/21/22 MCHC 35.5 g/dL (32.0-36.0) 08/21/22 RDW Standard Deviation 44.4 fL (36.4-46.3) 08/21/22 RDW Coefficient of Variation 13.6 % (11.5-14.5) 08/21/22 Plt Count 151 K/uL (130-400) 08/21/22 MPV 11.7 fL (9.4-12.4) 08/21/22 Na 137 mmol/L (136-145) 08/21/22 K 3.7 mmol/L (3.5-5.1) 08/21/22 Cl 102 mmol/L (98-107) 08/21/22 CO2 27 mmol/L (21-32) 08/21/22 Anion Gap 8 (3-11) 08/21/22 BUN 30 mg/dl (6-23) H 08/21/22 Creatinine 1.15 mg/dl (0.6-1.4) 08/21/22 Estimated GFR ( Amer) 67.4 ml/min 08/21/22 Estimated GFR (Non-Af Amer) 58.1 ml/min 08/21/22 BUN/Creatinine Ratio 26.1 (10-20) H 08/21/22 Glu 103 mg/dl (70-99(Fasting)) H 08/21/22 Ca 9.2 mg/dl (8.6-10.3) 08/21/22 Mg 2.0 mg/dl (1.7-2.4) 08/21/22 06:40 Calcium Level 9.2 mg/dl (8.6-10.3) 08/21/22 06:40 I & O Totals 24 Hours 08/20/22 08/21/22 08/22/22 06:59 06:59 06:59 Intake Total 1239.667 / 1239.667 228 / 228 Balance 1239.667 / 1239.667 228 / 228 Cumulative 08/20/22 04:07 thru 08/21/22 07:08 Intake Total 1467.667 Balance 1467.667 RT Ventilator Mngmt (Last Documented) Ventilator Ordered Settings Respiratory Rate 17 08/21/22 07:06 Ventilator - PT Measurements Respiratory Rate 17 PG Care Time/CCT Total # of Minutes Spent Total Time Spent with Patient: Total time spent is greater than 50% in coordination of care (as documented) at patient's floor/unit and/or counseling patient: Coding Level of Care Code 50627 SUB INP/OBS CARE 2/35MIN Diagnoses Non-ST elevated myocardial infarction (non-STEMI) I21.4 Elevated temperature R50.9 Enlarged prostate with lower urinary tract symptoms (LUTS) N40.1 Benign essential hypertension I10 Depression F32.9 Mixed hyperlipidemia E78.2 Chronic reflux esophagitis K21.0 Time Spent (min) 30 Comment Including [id number] discussion with patient, , son
[2022-08-21 08:31] LABS: Partial Thromboplastin Time 60.5 Seconds (21.0-31.0)
[2022-08-22 07:04] LABS: Hematocrit (blood only) 40.3 % (42.0-52.0); Hemoglobin 13.8 g/dl (14.0-18.0); Mean Corpuscular Hemoglobin 30.8 pg (25.0-34.0); Mean Corpuscular Hgb Conc 34.2 g/dL (32.0-36.0); Mean Platelet Volume 11.5 fL (9.4-12.4); Platelet Count 168 K/uL (130-400); RDW Coefficient of Variation 13.4 % (11.5-14.5); RDW Standard Deviation 44.2 fL (36.4-46.3); Red Blood Count 4.48 M/uL (4.70-6.10); White Blood Count 5.76 K/ul (4.8-10.8)
[2022-08-22 07:19] LABS: Calcium 8.9 mg/dl (8.6-10.3); Creatinine Clr Calc Pharmacy 54.2 ml/min; Est GFR (African American) 67.4 ml/min; Est GFR (Non-African American) 58.1 ml/min; Potassium 3.9 mmol/L (3.5-5.1)
[2022-08-22 08:09] LABS: Partial Thromboplastin Ratio 1.7
[2022-08-22 08:11] LABS: Partial Thromboplastin Time 49.3 Seconds (21.0-31.0)
[2022-08-22] MEDS: ASPIRIN 81 MG ECTAB PO SCH (08:13)
[2022-08-22] MEDS: FINASTERIDE 5 MG TAB PO SCH (08:13)
[2022-08-22] MEDS: ESCITALOPRAM OXALATE 10 MG TAB PO SCH (08:13)
[2022-08-22] MEDS: EZETIMIBE 10 MG TABLET PO SCH (08:13)
[2022-08-22] MEDS: lisinopril 10 MG TAB PO SCH (08:13)
[2022-08-22] MEDS: HEPARIN SODIUM/DEXTROSE 25,000 UNITS/500 ML BAG IV SCH (08:15)
--- NOTE | 2022-08-22 13:38 | Hospitalist Progress Note ---
Date of Service August 22, 2022 Assessment & Plan (1) Non-ST elevated myocardial infarction (non-STEMI): Plan: Cardiology consulted. Unclear if this is an underlying significant coronary event or demand ischemia from acute stress/infection They recommend continuing on heparin drip over the weekend and if no further manifestation of infection, consider cardiac catheterization and or chemical stress test on Tuesday Awaiting further recommendations from cardiology Continue to monitor on telemetry Patient does continue with some bradycardia. Current rate is around 55 bpm. Review of telemetry indicates rate as low as 47 bpm. Patient unaware of bradycardia. Denies any presyncope Currently not on beta-jourdan Continue LEILA inhibitor and aspirin (2) Elevated temperature: Plan: Leukocytosis has resolved C-reactive protein is elevated 7.72 mg/Severo Patient afebrile the entire visit Urine culture 08/04/2022 with coag negative Staphylococcus No current cultures No indication for antibiotics at this time (3) Enlarged prostate with lower urinary tract symptoms (LUTS): Plan: Continue finasteride (4) Benign essential hypertension: Plan: Continue lisinopril 10 mg p.o. daily Currently hemodynamically stable (5) Depression: Plan: Seems to be well controlled. Continue Escitalopram 10 mg p.o. daily (6) Mixed hyperlipidemia: Plan: Continue ezetimibe Outpatient management (7) Chronic reflux esophagitis: Plan: No acute complaints of midepigastric pain or "heartburn" Patient is not on PPI or histamine 2 jourdan Due to advanced age, continue with aspiration precautions and avoid food 4 hours before bedtime Plan Continue inpatient stay over the weekend on telemetry. Patient to be evaluated for appropriateness of cardiac catheterization or chemical stress test on Tuesday. Admission and Anticipated Discharge Date Admission Date: August 20, 2022 Subjective Patient feels well overall. Denies chest pain or shortness of breath. Review of Systems Review of Systems: All systems reviewed & are unremarkable except as noted in Subjective Physical Exam Physical Exam: General: Awake, conversant Heart: S1, S2/regular rate and rhythm, no murmur rubs or gallops Lungs: Clear to auscultation bilaterally. Normal effort Abdomen: Soft/nontender/nondistended. No hepatosplenomegaly Extremities: No clubbing/cyanosis. No edema Behavior: Appropriate, cooperative Results & Data Results & Data Vital Signs (Past 12 Hours) Vital Signs Temp Pulse Pulse Resp BP Pulse Ox O2 Del Method 08/22/22 11:38 36.6 C 55 L 16 161/82 H 95 Room Air 08/22/22 08:03 36.4 C L 62 18 138/79 94 Room Air 08/22/22 07:25 48 L 08/22/22 03:46 36.7 C 53 L 16 145/69 H 94 Room Air Laboratory Results Abnormal lab results 08/22/22 08/22/22 08/22/22 Range/Units 06:14 06:14 06:14 RBC 4.48 L (4.70-6.10) M/uL Hgb 13.8 L (14.0-18.0) g/dl Hct 40.3 L (42.0-52.0) % APTT 49.3 H* (21.0-31.0) Seconds BUN 31 H (6-23) mg/dl BUN/Creatinine Ratio 27.0 H (10-20) Glucose 104 H (70-99(Fasting)) mg/dl PG Care Time/CCT Total # of Minutes Spent Total Time Spent with Patient: Total time spent is greater than 50% in coordination of care (as documented) at patient's floor/unit and/or counseling patient: Coding Level of Care Code 69859 SUB INP/OBS CARE 2/35MIN Diagnoses Non-ST elevated myocardial infarction (non-STEMI) I21.4 Elevated temperature R50.9 Enlarged prostate with lower urinary tract symptoms (LUTS) N40.1 Benign essential hypertension I10 Depression F32.9 Mixed hyperlipidemia E78.2 Chronic reflux esophagitis K21.0
[2022-08-23 06:49] LABS: Hematocrit (blood only) 39.1 % (42.0-52.0); Hemoglobin 13.7 g/dl (14.0-18.0); Mean Corpuscular Hemoglobin 31.5 pg (25.0-34.0); Mean Corpuscular Volume 89.9 fL (80.0-100.0); Mean Platelet Volume 11.5 fL (9.4-12.4); Platelet Count 182 K/uL (130-400); RDW Coefficient of Variation 13.4 % (11.5-14.5); RDW Standard Deviation 44.6 fL (36.4-46.3); Red Blood Count 4.35 M/uL (4.70-6.10); White Blood Count 5.99 K/ul (4.8-10.8)
[2022-08-23 07:05] LABS: BUN Creatinine Ratio 23.7 (10-20); Creatinine Clr Calc Pharmacy 54.7 ml/min; Est GFR (African American) 68.1 ml/min; Est GFR (Non-African American) 58.7 ml/min
[2022-08-23 07:47] LABS: Partial Thromboplastin Ratio 1.6
[2022-08-23 07:50] LABS: Partial Thromboplastin Time 43.8 Seconds (21.0-31.0)
[2022-08-23] MEDS: HEPARIN SODIUM/DEXTROSE 25,000 UNITS/500 ML BAG IV SCH (08:30)
[2022-08-23] MEDS: ASPIRIN 81 MG ECTAB PO SCH (08:35)
[2022-08-23] MEDS: FINASTERIDE 5 MG TAB PO SCH (08:35)
[2022-08-23] MEDS: ESCITALOPRAM OXALATE 10 MG TAB PO SCH (08:35)
[2022-08-23] MEDS: EZETIMIBE 10 MG TABLET PO SCH (08:35)
[2022-08-23] MEDS: lisinopril 10 MG TAB PO SCH (08:35)
--- NOTE | 2022-08-23 13:29 | Cardiology Progress Note ---
Date of Service August 23, 2022 Assessment & Plan (1) Elevated troponin: (2) Atypical chest pain: (3) Dyslipidemia: (4) Hypertension: Plan ASSESSMENT/PLAN: 1. Elevated troponin: Did not present with acute coronary syndrome based on his description. Appeared more likely to have infection with vomiting, low-grade fever, chills, and was on treatment for UTI. Given elevated troponin however, ischemic evaluation seems prudent. We discussed cardiac catheterization versus stress testing. Risks and benefits of cardiac catheterization discussed. Would not pursue cardiac catheterization and he was in agreement to pursue noninvasive evaluation. Able to ambulate in the hallway without angina. Unable to walk on a treadmill given knee issues. Would prefer to avoid dobutamine given elevated troponin. Myocardial perfusion study not available today. He would like to go home. Myocardial perfusion study ordered as an outpatient and requested to be done this week if possible. 2. Atypical chest pain: He does not recall his pain and has not had any recurrence despite ambulation in the hallway. Plan as above. 3. Dyslipidemia: Consider statin therapy. On Zetia. 4. Hypertension: Blood pressure elevated today but otherwise had been intermittently normotensive to mildly hypertensive. Bradycardic and therefore avoid beta-jourdan. Consider amlodipine if blood pressure remains elevated. 5. Disposition: He and his family know Dr. Muro from [facility] and he did in itial consultation. Follow-up with Dr. Muro within 2 weeks. Note sent to cardiology office to arrange this soon. Myocardial perfusion study as above. Patient care communicated with Dr. Mcconnell of the primary hospitalist service. Plan discussed with nursing staff as well. Admission and Anticipated Discharge Date Admission Date: August 20, 2022 Subjective Was notified by hospitalist, Dr. Mcconnell, that he is n.p.o. awaiting cath versus stress testing. I met him this afternoon with his , son, and [id number] at the bedside. He does not recall the chest discomfort. His stated that on the day prior to presentation, he vomited in the morning. Later that night he had shaking chills, was confused, and early Tuesday morning at 2 AM, the day of presentation, he developed chest discomfort which she described to her as similar to a "toothache." He also had a slight fever. The chest pain resolved before he reached the hospital and he has not had any further chest pain. He denies shortness of breath, exertional chest pain, syncope, near syncope, palpitations, edema, or bleeding. He is generally pretty active. He has not done any significant ambulation at the time of this visit but was encouraged to walk in the hallway. He then walked in the hallway around the nursing station and did so without chest pain or shortness of breath. His family members state that he had been on an antibiotic for UTI diagnosed 1 week prior to his presentation. He feels back to baseline other than feeling weaker as he has been sitting in bed for most of the past 3 days. He is eager to be discharged. Physical Exam Physical Exam: Gen.: No acute distress. Alert and oriented. HEENT: Anicteric sclera. Neck: No JVD. Cardiac: No ventricular heave. Regular. Normal S1-S2. No murmurs, rubs, or gallops. Pulmonary: Clear to auscultation bilaterally without wheezes, rales, or rhonchi. Abdomen: Soft, nontender, nondistended, with normoactive bowel sounds. No bruits noted. Extremities: 2+ radial pulses bilaterally. No significant edema or cyanosis. Psychiatric: Affect appears appropriate. Results & Data Vital Signs (Past 12 Hours) Vital Signs Temp Pulse Pulse Resp BP BP Pulse Ox 08/23/22 11:27 36.5 C 54 L 18 160/78 H 95 08/23/22 10:34 08/23/22 09:31 48 L 08/23/22 07:49 36.5 C 54 L 18 147/66 H 96 08/23/22 03:54 36.8 C 50 L 18 153/85 H 96 O2 Del Method 08/23/22 11:27 Room Air 08/23/22 10:34 Room Air 08/23/22 09:31 08/23/22 07:49 Room Air 08/23/22 03:54 Room Air Laboratory Results Laboratory Results - last 24 hr 08/23/22 08/23/22 08/23/22 06:04 06:04 06:04 WBC 5.99 RBC 4.35 L Hgb 13.7 L Hct 39.1 L MCV 89.9 MCH 31.5 MCHC 35.0 RDW Std Deviation 44.6 RDW Coeff of Bart 13.4 Plt Count 182 MPV 11.5 APTT 43.8 H* PTT Ratio 1.6 Sodium 140 Potassium 4.0 Chloride 105 Carbon Dioxide 27 Anion Gap 8 BUN 27 H Creatinine 1.14 Est Cr Clr Drug Dosing 54.7 Est GFR ( Amer) 68.1 Est GFR (Non-Af Amer) 58.7 BUN/Creatinine Ratio 23.7 H Glucose 112 H Calcium 9.0 Magnesium 2.0 Diagnostic Findings Telemetry personally reviewed: Sinus bradycardia in the 40s to 50s. No arrhythmia. Chart reviewed. Echo images personally reviewed from 09-10. No regional wall motion abnormalities. Normal LV systolic function. Nonsevere mitral regurgitation. ECG personally reviewed 08/22/2022: Sinus bradycardia 51 bpm. History and physical and initial cardiology consultation performed by Dr. Muro reviewed. Labs reviewed from 08/23/2022, demonstrating stable hemoglobin, stable renal function, normal potassium. Medications Administered Current Inpatient Medications Acetaminophen (Acetaminophen 325 Mg Tab) 650 mg PO Q4H PRN PRN Reason: Pain or Fever Stop: 09/19/22 08:53 Al Hydrox/Mg Hydrox/Simethicone (Aluminum/Magnesium Susp 30 Ml Udc) 15 ml PO Q4H PRN PRN Reason: Dyspepsia Stop: 09/19/22 08:53 Aspirin (Aspirin 81 Mg Ectab) [facility] [place]: 09/19/22 08:59 Last Admin: 08/23/22 08:35 Dose: 81 mg Ezetimibe (Ezetimibe 10 Mg Tablet) 10 mg PO DAILY [facility] Stop: 09/19/22 08:59 Last Admin: 08/23/22 08:35 Dose: 10 mg Escitalopram Oxalate (Escitalopram Oxalate 10 Mg Tab) 10 mg PO DAILY [facility] Stop: 09/19/22 08:59 Last Admin: 08/23/22 08:35 Dose: 10 mg Finasteride (Finasteride 5 Mg Tab) 5 mg PO DAILY [facility] Stop: 09/19/22 08:59 Last Admin: 08/23/22 08:35 Dose: 5 mg Heparin Sodium/Dextrose (Heparin Sodium/Dextrose) 25,000 units in 500 mls @ 20 mls/hr IV .Q24H [facility]; Protocol Stop: 09/19/22 05:44 Last Admin: 08/23/22 08:30 Dose: 1,000 units/hr, 20 mls/hr Lisinopril (Lisinopril 10 Mg Tab) 10 mg PO DAILY [facility] Stop: 09/19/22 08:59 Last Admin: 08/23/22 08:35 Dose: 10 mg Morphine Sulfate (Morphine Sulfate 2 Mg/Ml Carp) 2 mg IV Q30M PRN PRN Reason: Chest Pain Stop: 09/03/22 08:53 Nitroglycerin (Nitroglycerin Sl 0.4 Mg/Tab Tab) 0.4 mg SL Q5M PRN PRN Reason: Chest Pain Stop: 09/19/22 08:53 Ondansetron HCl (Ondansetron Inj 2 Mg/Ml 2 Ml Vial) 4 mg IV Q6H PRN PRN Reason: Nausea Stop: 09/19/22 08:53 PG Care Time/CCT Total # of Minutes Spent Total Time Spent with Patient: Total time spent is greater than 50% in coordination of care (as documented) at patient's floor/unit and/or counseling patient: Coding Level of Care Code 76642 SUB INP/OBS CARE 3/50MIN Diagnoses Elevated troponin R77.8 Atypical chest pain R07.89 Dyslipidemia E78.5 Hypertension I10
--- NOTE | 2022-08-23 14:04 | Discharge Summary ---
Date of Service August 23, 2022 Admission HPI Per Admitting Provider 82 M presents with feeling of fatigue, restlessness but not classic anginal symptoms, did vomit after taking advil. IN the Er found to have an elevated hstroponin to 1700, perhaps some lateral st changes. Pt had low grade temperature on admission, thus cardiology wishes to eval infectious etiology currently is symptom free on heparin gtt Admission Exam Per Admitting Provider The patient appeared well nourished and normally developed. He appeared his stated age Vital signs as documented. Head exam is normocephalic atraumatic Neck is without JVD, thyromegaly, or carotid bruits. Lungs are clear to auscultation, no focal loss of breath sounds Cardiac exam, Rhythm is regular.. No murmurs, rubs or gallops. Abdominal exam reveals normal bowel sounds, soft non tender, no masses Extremities are nonedematous and both pedal pulses are present Neurologic exam is alert and oriented, no focal loss of strength or sensation Skin is without bruises or rashes Psychologically is without concerns for anxiety or depression.. Principal Diagnosis Elevated troponin most likely related to an infection, less likely to be cardiac in etiology per cardiology Discharge Exam General: Awake, conversant Heart: S1, S2/regular rate and rhythm, no murmur rubs or gallops Lungs: Clear to auscultation bilaterally. Normal effort Abdomen: Soft/nontender/nondistended. No hepatosplenomegaly Extremities: No clubbing/cyanosis. No edema Behavior: Appropriate, cooperative Discharge Data Allergies Allergy/AdvReac Type Severity Reaction Status Date / Time ragweed pollen Allergy Verified 08/20/22 12:39 Tetracyclines Allergy Verified 08/20/22 12:39 Consultations 08/20/22 05:37 ED Decision to Admit Stat 08/20/22 08:54 Consult Cardiology Routine Hospital Course (1) Non-ST elevated myocardial infarction (non-STEMI): Unclear if this is an underlying significant coronary event or demand ischemia from acute stress/infection. Cardiology was on board and the patient was treated with IV heparin drip Cna Pct cleared the patient for discharge today. Plan is for outpatient stress test. Continue Zetia. Follow-up with Dr. Muro from cardiology in 2 weeks. (2) Elevated temperature: Leukocytosis has resolved C-reactive protein is elevated 7.72 mg/Severo Patient afebrile the entire visit Urine culture 08/04/2022 with coag negative Staphylococcus No current cultures No indication for antibiotics at this time (3) Enlarged prostate with lower urinary tract symptoms (LUTS): Continue finasteride (4) Benign essential hypertension: Continue lisinopril 10 mg p.o. daily Currently hemodynamically stable (5) Depression: Seems to be well controlled. Continue Escitalopram 10 mg p.o. daily (6) Mixed hyperlipidemia: Continue ezetimibe Outpatient management (7) Chronic reflux esophagitis: No acute complaints of midepigastric pain or "heartburn" Patient is not on PPI or histamine 2 jourdan Due to advanced age, continue with aspiration precautions and avoid food 4 hours before bedtime Plan Discharge today Total Time Total Time Spent Total Time Spent (In Minutes): 35 Discharge Plan Discharge Items Patient Disposition: Home - Self-Care Reason For Visit: UNSTABLE ANGINA Discharge Diagnosis: Likely demand ischemia Elevated temperature of unclear etiology, no infection found Activity: Resume your previous activity Non-emergency contact: Primary Care Provider Call non-emergency contact if: you have any medication questions and your symptoms worsen Follow-up/Referrals: El Muro MD [Physician] - 09/02/22 3:15 pm Teodoro Hooks DO [Primary Care Provider] - 08/27/22 9:20 am Diet: Heart Healthy Addtl Attending Provider Instructions: Advised to note that you are being discharged today Advised to note that you will have an outpatient stress test arranged. Someone will call you with an appointment Advised to note that you will need to follow-up with Dr. Muro from cardiology as well. Advised to follow-up with PCP in 1 week Pending Studies at Discharge: No Stand-Alone Forms: My [facility] Medications and DC Order Prescriptions: Continued finasteride 5 mg tablet 5 mg PO DAILY Qty: 90 3RF lisinopril 10 mg tablet See Rx Instructions .ROUTE .COMPLEX Qty: 90 3RF Dose Instruction: TAKE 1 TABLET BY MOUTH DAILY Rx Instructions: TAKE 1 TABLET BY MOUTH DAILY diclofenac sodium 1 % gel 2 g topical QID PRN (Reason: pain, moderate) Qty: 100 5RF ezetimibe 10 mg tablet 10 mg PO DAILY Qty: 90 1RF escitalopram oxalate [Lexapro] 10 mg tablet 10 mg PO DAILY Qty: 90 1RF PreserVision AREDS 14320-242-200 [id number]-[id number] capsule 1 cap PO BID [id number] serr [Osteo Bi-Flex (5-Loxin)] 1,500-400-100 mg-unit-mg tablet 1 tab PO DAILY omega-3 fatty acids 1,000 mg capsule 1,000 mg PO DAILY desonide 0.05 % ointment 1 applic topical BID Qty: 15 0RF Rx Instructions: Apply sparingly to areas of the face twice daily as needed. Discharge Orders: Discharge Order (Routine); Ordered 08/23/22 Ordered By: Ann Mcconnell Admission Data Admit Date/Time: 08/20/22 07:50 Attending Provider: Ann Mcconnell Admit Provider: Maximiliano Beauchamp Primary Care Provider: Teodoro Hooks Other Providers: Ubaldo Lopez ; El Muro Other Interventions: Discharge Summary Assessment (RN) Last Done: 08/23/22 14:20 Coding Level of Care Code 05850 INP/OBS DISCH >30 MIN Diagnoses Non-ST elevated myocardial infarction (non-STEMI) I21.4 Elevated temperature R50.9 Enlarged prostate with lower urinary tract symptoms (LUTS) N40.1 Benign essential hypertension I10 Depression F32.9 Mixed hyperlipidemia E78.2 Chronic reflux esophagitis K21.0
--- NOTE | 2022-08-23 22:03 | Electrocardiogram Report ---
Test Reason : Blood Pressure : / mmHG Vent. Rate : 051 BPM Atrial Rate : 051 BPM P-R Int : 156 ms QRS Dur : 102 ms QT Int : 456 ms P-R-T Axes : -02 -07 056 degrees QTc Int : 420 ms Sinus bradycardia Nonspecific ST abnormality When compared with ECG of 21-AUG-2022 05:54, No significant change was found Confirmed by Corbin Morrow ([id number]) on 08/23/2022 10:03:24 PM Referred By: REFERRED SELF Confirmed By:Corbin Morrow
== END 2022-08-23 14:45 | disposition home or self-care (01) | DRG 311 ==
LOC: ED 04:07 → SUATTDRO 07:50 → 2S 07:50

== ENCOUNTER 2022-08-24 08:06 | Inpatient (IN) ==
[2022-08-24 08:35] LABS: Hematocrit (blood only) 41.9 % (42.0-52.0); Hemoglobin 14.9 g/dl (14.0-18.0); Mean Corpuscular Hemoglobin 31.6 pg (25.0-34.0); Mean Corpuscular Hgb Conc 35.6 g/dL (32.0-36.0); Platelet Count 211 K/uL (130-400); RDW Coefficient of Variation 13.5 % (11.5-14.5); RDW Standard Deviation 43.8 fL (36.4-46.3); Red Blood Count 4.71 M/uL (4.70-6.10)
--- NOTE | 2022-08-24 08:37 | XRay Report ---
XR chest 1V portable HISTORY: 82 years-old Male Chest pain, nonspecific COMPARISON: 08/20/2022 TECHNIQUE: AP view of the chest FINDINGS: Mild right hemidiaphragmatic elevation. Unchanged calcified granuloma of the right lateral lung base. Cardiac silhouette is enlarged. Improved pulmonary edema. Bones appear grossly intact. No pneumothor ax, pleural effusion or lobar airspace consolidation. IMPRESSION: Cardiomegaly with improved/resolved pulmonary edema. ACT 112: Negative or not required by law. The above report was generated using voice recognition software. It may contain grammatical, syntax o r spelling errors. Electronically signed by: Shantanu Ivory M.D. 08/24/2022 8:36 AM
[2022-08-24 08:59] LABS: Basophils # (auto) 0.05 K/uL (0-0.2); Basophils % (auto) 0.2 %; Eosinophils # (auto) 0.15 K/uL (0-0.50); Eosinophils % (auto) 0.7 %; Immature Granulocytes # (auto) 0.76 K/uL (0.01-0.20); Immature Granulocytes % (auto) 3.4 %; Lymphocytes # (auto) 0.43 K/uL (1.2-3.4); Lymphocytes % (auto) 1.9 %; Monocytes % (auto) 3.2 %; Neutrophils # (auto) 20.11 K/uL (1.40-6.50); Neutrophils % (auto) 90.6 %; Polychromasia 1+; Tear Drop Cells 1+; Toxic Granulation 1+; Toxic Vacuolation 1+
[2022-08-24 09:01] LABS: Alanine Aminotransferase 46 U/L (7-52); Albumin Level 3.7 gm/dl (3.4-5.0); Alkaline Phosphatase 75 U/L (34-104); Anion Gap 12 (3-11); Aspartate Aminotransferase 38 U/L (13-39); BUN Creatinine Ratio 25.2 (10-20); Bilirubin,Total 1.6 mg/dl (0.2-1.0); Blood Urea Nitrogen 33 mg/dl (6-23); Calcium 9.4 mg/dl (8.6-10.3); Carbon Dioxide 22 mmol/L (21-32); Chloride 104 mmol/L (98-107); Est GFR (African American) 57.5 ml/min; Est GFR (Non-African American) 49.6 ml/min; Globulin 3.7 gm/dl (2.5-4.0); Glucose 164 mg/dl (70-99(Fasting)); Lipase 18 U/L (11-82); Magnesium 1.7 mg/dl (1.7-2.4); Sodium 138 mmol/L (136-145); Total Protein 7.4 gm/dl (6.0-8.3)
[2022-08-24 09:16] LABS: INR 1.1 (0.9-1.1); Partial Thromboplastin Ratio 0.9; Prothrombin Time 11.8 Seconds (9.0-12.0)
[2022-08-24 09:20] LABS: Troponin I High Sensitivity 418.8 pg/ml (0-20)
[2022-08-24] MEDS ORDERED: CEFEPIME 2,000 MG/20 ML VIAL IV STA (09:24)
[2022-08-24] MEDS ORDERED: OPTIRAY 320 500ml IV ONE (09:48)
--- NOTE | 2022-08-24 10:00 | CT Scan Report ---
CT ANGIOGRAM OF THE CHEST CLINICAL HISTORY: Hypoxia COMPARISON STUDY: Chest x-ray dated 08/24/2022. TECHNIQUE: Following the IV administration of 112 cc of Optiray 320, CT angiogram of the chest was pe rformed from the upper abdomen to the thoracic inlet utilizing the pulmonary embolus protocol. Images are reviewed in the axial, sagittal, and coronal planes. 3-D MIPS images are created and assessed. I V contrast was administered without complication. A dose lowering technique was utilized adhering to the principles of ALARA. The examination is significantly degraded by motion artifact. FINDINGS: Thyroid: Imaged portions of the thyroid gland are normal in size and attenuation. Thoracic aorta: The thoracic aorta is normal in caliber and demonstrates standard 3-vessel arch anato my. No dissection is seen. Pulmonary vasculature: The pulmonary trunk is normal in caliber. There are no filling defects identif ied in main, lobar, or segmental pulmonary branches to suggest pulmonary embolus. Evaluation of the p eripheral branches is degraded by motion artifact. Heart: The heart is enlarged noting a small pericardial effusion. The coronary arteries are densely c alcified. Lungs and pleural spaces: Evaluation of the lung parenchyma significantly degraded by motion artifact . Dependent scarring/atelectasis is seen at both lung bases. No airspace consolidation typical for pn eumonia or pleural effusion is identified. There are bilateral calcified granulomas. The trachea and central airways are clear. Mediastinum: There are numerous mildly enlarged mediastinal lymph nodes. These measure up to 10 mm sh ort axis. There are calcified subcarinal nodes. Nikia: There are calcifications containing hilar lymph nodes. No hilar adenopathy is identified. Axillae: There is no axillary lymphadenopathy. Upper abdomen: There are calcified splenic granulomas. A hiatal hernia is observed. A 1.6 cm exophyti c cyst arises from the upper pole of the right kidney. Skeletal structures: The skeletal structures are osteopenic. No lytic or blastic bony lesions are see n. Advanced degenerative change is seen in the shoulders and thoracic spine. IMPRESSION: 1. Significantly motion compromised examination. 2. There is no evidence of pulmonary embolus in the main, lobar, or segmental pulmonary arteries. 3. There is no airspace consolidation typical for pneumonia or pleural effusion. 4. Cardiomegaly. 5. Numerous mildly enlarged mediastinal lymph nodes are nonspecific and may be reactive. Correlate cl inically. 6. Additional findings as above. ACT 112: Negative or not required by law. Electronically signed by: Amanuel Daugherty M.D. 08/24/2022 9:59 AM
--- NOTE | 2022-08-24 10:46 | History & Physical Report ---
Date of Service August 24, 2022 Assessment & Plan (1) Non-ST elevated myocardial infarction (non-STEMI): Plan: Trend troponin. If significant increase will consult cardiology to consider cardiac catheterization and start IV heparin. If decreasing (continuing from last admission) will treat for constipation (most likely other cause of vomiting) and consider myocardial perfusion scan. TTE to assess for new wall motion abnormalities which would also warrant direct to catheterization ?enlarging pericardial effusion. ASA 324mg PO given en route to hospital, continue aspirin 81mg PO QAM BB deferred last admission due to bradycardia, tachycardia currently but will defer this to cardiology LDL 137 in July - will defer statin management to cardiology HbA1C 6.1 in July - no current medications for this, could consider metformin on discharge for pre-diabetes (2) Leukocytosis: Plan: Suspect this is reactive to his vomiting No source of infection from imaging, history or lab work. CRP is downtrending. Main concern is procalcitonin is elevated and no blood cultures taken last admission. Blood cultures taken in ER, will follow up. Workup for tick borne diseases if warranted given chills last admission but low suspicion this is driving his leukocytosis Biofire PCR added One dose of cefepime given in the ER however given lack of source will defer ongoing treatment Trend WBC and procalcitonin. Unless emergent would suggest catheterization only after blood cultures negative at 48 hours and procalcitonin downtrending. (3) Hypoxia: Plan: Unclear cause on admission ?mild aspiration pneumonitis without current imaging changes - incentive spirometer TTE to assess for cardiac cause Continue to monitor Aim O2 sats > 94 % in setting of possible acute coronary syndrome (4) Hypertension: Plan: Suspect mild hypotension in the ER due to nitroglycerin doses Continue to monitor off with holding his lisinopril (5) Vomiting: Plan: No abdominal pain to warrant imaging at this time. Can consider if recurrent. Use ondansetron as needed ?due to constipation - will start MiraLAX pending ongoing workup for NSTEMI as above ?related to NSTEMI although did not occur with chest pain (6) Chronic reflux esophagitis: Plan: Possible cause of chest pain as above Famotidine 20mg IV now If troponin downtrending suspect due to this with his vomiting Plan VTE Prophylaxis - deferred pending repeat troponin Diet - NPO pending repeat troponin Disposition - admit to PCU Admission and Anticipated Discharge Date Admission Date: August 24, 2022 History of Present Illness Chief Complaint: Vomiting, chest pain Primary Care Provider: Teodoro Hooks DO Francisco Javier Rangel is an 82 year old male who presents to the ER via EMS with chest pain and vomiting. He was recently admitted to [facility] from August 20 - 2022 due to fatigue, restlessness and vomited after taking an Advil. High sensitivity troponin was elevated but downtrending. His symptoms appeared to fit better with infection although none was found and he was discharged yesterday with plan for outpatient myocardial perfusion scan on . He reports feeling fine on discharge. However, around midnight last night he started having vomiting episode. Occurred hours after his last meal. No odynophagia or dysphagia. He denies any abdominal pain, melena or bright red blood in stool. He reports not having a bowel movement in many days but does not feel constipated. This morning he had chest pain that started at 6:30am, lasted for 1 hour, worse on exertion, improved with nitroglycerin given in the ambulance, constant substernal without radiation, severity 7/10. He is currently chest pain free in the emergency room. EMS gave 324mg aspirin and 2 nitroglycerin tabs. Allergies Allergy/AdvReac Type Severity Reaction Status Date / Time ragweed pollen Allergy Unknown Verified 08/24/22 11:13 Tetracyclines Allergy Unknown Verified 08/24/22 11:13 Home Medications Medication Instructions Recorded Confirmed Type vitamins A,C,D-gkmg-yhcqja 4,296 1 cap PO BID 12/13/18 08/24/22 History mcg-226 mg-90 mg capsule (PreserVision AREDS) glucosamine CTe-W2-Okknkmrvg 1 tab PO DAILY 12/15/18 08/24/22 History frank 1,500 mg-400 unit-100 mg tablet (Osteo Bi-Flex (5-Loxin)) omega-3 fatty acids 1,000 mg 1,000 mg PO DAILY 12/15/18 08/24/22 History capsule finasteride 5 mg tablet 5 mg PO DAILY #90 tabs 10/15/21 08/24/22 Rx lisinopril 10 mg tablet See Rx Instructions .Route 01/07/22 08/24/22 Rx .COMPLEX #90 tabs desonide 0.05 % topical ointment 1 applic topical BID #15 grams 01/22/22 08/24/22 Rx diclofenac sodium 1 % topical gel 2 g topical QID PRN pain, moderate 02/25/22 08/24/22 Rx #100 grams escitalopram oxalate 10 mg tablet 10 mg PO DAILY #90 tabs 06/04/22 08/24/22 Rx (Lexapro) ezetimibe 10 mg tablet 10 mg PO DAILY #90 tabs 06/04/22 08/24/22 Rx Past Med/Surg History Medical History (Updated 08/24/22 @ 11:30 by Hayden Claros MD) Actinic keratosis Dyslipidemia Hypertension Nephrolithiasis UTI (urinary tract infection) Surgical History S/P tonsillectomy Status post laser lithotripsy of ureteral calculus Family History Grandfather Colorectal cancer Denies family history of Ovarian cancer Prostate cancer Myocardial infarction Breast cancer Social History Smoking Status: Never smoker Tobacco Type: Cigars Age Started Using Tobacco: 14; Age Quit Using Tobacco: 19; Cigarettes Per Day: JUST HERE AND THERE MOSTLY CIGARS; Second Hand Exposure: No; Do You Dip or Chew Tobacco: No; Hx Alcohol Use: No Hx Substance Use: No Preferred Language: Telugu Communication Ability: Effective Visual Impairment: No Limitations Hearing Ability: Use of Hearing Aid Egg Pasteurizer Required: No Beliefs That Will Affect Care: None marital status: Current Living Situation: Spouse current occupational status: retired 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 Feels Safe at Home: Yes Childhood Exposure to Second-Hand Smoke: No Diet: regular Dental Care, Regularly: Yes Physical Activity Frequency: 5-6 Times per Week Seatbelt Use: always Sunscreen Use: Yes Assistive Devices: None Review of Systems Review of Systems: All systems reviewed & are unremarkable except as noted in HPI & below Physical Exam Constitutional: WD/WN, vitals as above Eyes: + anicteric sclerae; normal pupil size ENMT: external ear and nose normal, oropharynx normal Neck: trachea midline, no thyromegaly Respiratory: normal respiratory effort, lungs clear to auscultation Cardiovascular: RRR, no murmur, no edema Gastrointestinal (Abdomen): normal bowel sounds, soft, nontender, no hepatosplenomegaly Musculoskeletal: no cyanosis or clubbing, extremities motor strength 5/5 Skin: no rashes, warm and dry Neurologic: moves all extremities and awake; not confused Psychiatric: A+Ox3, euthymic affect Results & Data Results & Data Vital Signs (Past 12 Hours) Vital Signs Temp Pulse Pulse Resp BP BP Pulse Ox 08/24/22 09:30 93 H 22 104/66 93 08/24/22 09:00 98 H 16 101/73 93 08/24/22 08:30 108 H 16 101/70 91 08/24/22 08:19 08/24/22 08:19 108 H 16 114/82 91 08/24/22 08:19 87 L 08/24/22 08:14 108 H 18 91 08/24/22 08:18 123 H 08/24/22 08:17 110 H 08/24/22 08:13 37.1 C 118 H 16 114/82 87 L O2 Del Method O2 Flow Rate 08/24/22 09:30 Nasal Cannula 4 08/24/22 09:00 Nasal Cannula 4 08/24/22 08:30 Nasal Cannula 4 08/24/22 08:19 Nasal Cannula 4 08/24/22 08:19 Nasal Cannula 4 08/24/22 08:19 Room Air, Nasal Cannula 08/24/22 08:14 Nasal Cannula 4 08/24/22 08:18 08/24/22 08:17 08/24/22 08:13 Room Air Laboratory Results Abnormal lab results 08/24/22 08/24/22 08/24/22 Range/Units 08:15 08:15 08:15 WBC 22.20 H (4.8-10.8) K/ul Hct 41.9 L (42.0-52.0) % Neut # (Auto) 20.11 H (1.40-6.50) K/uL Lymph # (Auto) 0.43 L (1.2-3.4) K/uL [place] # (Auto) 0.70 H (0.11-0.59) K/uL Immature Gran # (Auto) 0.76 H (0.01-0.20) K/uL ESR 49 H (0-20) mm/hr Anion Gap 12 H (3-11) BUN 33 H (6-23) mg/dl BUN/Creatinine Ratio 25.2 H (10-20) Glucose 164 H (70-99(Fasting)) mg/dl Lactate (0.4-2.0) mmol/L Total Bilirubin 1.6 H (0.2-1.0) mg/dl Troponin I High Sens 418.8 H* (0-20) pg/ml C-Reactive Protein 3.70 H (0-0.5) mg/dl B-Natriuretic Peptide (0-100) pg/ml Procalcitonin (0-0.5) ng/ml Ur Specific [place] (1.000-1.030) Urine Ketones (Negative) Ur Leukocyte Esterase (Negative) U Hyaline Cast (Auto) (0-5) /lpf U Epithel Cells (Auto) (0-5) /lpf 08/24/22 08/24/22 08/24/22 Range/Units 08:15 08:21 10:22 WBC (4.8-10.8) K/ul Hct (42.0-52.0) % Neut # (Auto) (1.40-6.50) K/uL Lymph # (Auto) (1.2-3.4) K/uL [place] # (Auto) (0.11-0.59) K/uL Immature Gran # (Auto) (0.01-0.20) K/uL ESR (0-20) mm/hr Anion Gap (3-11) BUN (6-23) mg/dl BUN/Creatinine Ratio (10-20) Glucose (70-99(Fasting)) mg/dl Lactate 2.2 H* (0.4-2.0) mmol/L Total Bilirubin (0.2-1.0) mg/dl Troponin I High Sens (0-20) pg/ml C-Reactive Protein (0-0.5) mg/dl B-Natriuretic Peptide 274 H (0-100) pg/ml Procalcitonin 1.27 H (0-0.5) ng/ml Ur Specific [place] (1.000-1.030) Urine Ketones (Negative) Ur Leukocyte Esterase (Negative) U Hyaline Cast (Auto) (0-5) /lpf U Epithel Cells (Auto) (0-5) /lpf 08/24/22 Range/Units 10:37 WBC (4.8-10.8) K/ul Hct (42.0-52.0) % Neut # (Auto) (1.40-6.50) K/uL Lymph # (Auto) (1.2-3.4) K/uL [place] # (Auto) (0.11-0.59) K/uL Immature Gran # (Auto) (0.01-0.20) K/uL ESR (0-20) mm/hr Anion Gap (3-11) BUN (6-23) mg/dl BUN/Creatinine Ratio (10-20) Glucose (70-99(Fasting)) mg/dl Lactate (0.4-2.0) mmol/L Total Bilirubin (0.2-1.0) mg/dl Troponin I High Sens (0-20) pg/ml C-Reactive Protein (0-0.5) mg/dl B-Natriuretic Peptide (0-100) pg/ml Procalcitonin (0-0.5) ng/ml Ur Specific [place] 1.038 H (1.000-1.030) Urine Ketones Trace H (Negative) Ur Leukocyte Esterase Trace H (Negative) U Hyaline Cast (Auto) 5-10 H (0-5) /lpf U Epithel Cells (Auto) 10-20 H (0-5) /lpf Diagnostic Findings XR chest 1V portable HISTORY: 82 years-old Male Chest pain, nonspecific COMPARISON: 08/20/2022 TECHNIQUE: AP view of the chest FINDINGS: Mild right hemidiaphragmatic elevation. Unchanged calcified granuloma of the right lateral lung base. Cardiac silhouette is enlarged. Improved pulmonary edema. Bones appear grossly intact. No pneumothorax, pleural effusion or lobar airspace consolidation. IMPRESSION: Cardiomegaly with improved/resolved pulmonary edema. CT ANGIOGRAM OF THE CHEST CLINICAL HISTORY: Hypoxia COMPARISON STUDY: Chest x-ray dated 08/24/2022. TECHNIQUE: Following the IV administration of 112 cc of Optiray 320, CT angiogram of the chest was performed from the upper abdomen to the thoracic inlet utilizing the pulmonary embolus protocol. Images are reviewed in the axial, sagittal, and coronal planes. 3-D MIPS images are created and assessed. IV contrast was administered without complication. A dose lowering technique was utilized adhering to the principles of ALARA. The examination is significantly degraded by motion artifact. FINDINGS: Thyroid: Imaged portions of the thyroid gland are normal in size and attenuation. Thoracic aorta: The thoracic aorta is normal in caliber and demonstrates standard 3-vessel arch anatomy. No dissection is seen. Pulmonary vasculature: The pulmonary trunk is normal in caliber. There are no filling defects identified in main, lobar, or segmental pulmonary branches to suggest pulmonary embolus. Evaluation of the peripheral branches is degraded by motion artifact. Heart: The heart is enlarged noting a small pericardial effusion. The coronary arteries are densely calcified. Lungs and pleural spaces: Evaluation of the lung parenchyma significantly degraded by motion artifact. Dependent scarring/atelectasis is seen at both lung bases. No airspace consolidation typical for pneumonia or pleural effusion is identified. There are bilateral calcified granulomas. The trachea and central airways are clear. Mediastinum: There are numerous mildly enlarged mediastinal lymph nodes. These measure up to 10 mm short axis. There are calcified subcarinal nodes. [place]: There are calcifications containing hilar lymph nodes. No hilar adenopathy is identified. Axillae: There is no axillary lymphadenopathy. Upper abdomen: There are calcified splenic granulomas. A hiatal hernia is observed. A 1.6 cm exophytic cyst arises from the upper pole of the right kidney. Skeletal structures: The skeletal structures are osteopenic. No lytic or blastic bony lesions are seen. Advanced degenerative change is seen in the shoulders and thoracic spine. IMPRESSION: 1. Significantly motion compromised examination. 2. There is no evidence of pulmonary embolus in the main, lobar, or segmental pulmonary arteries. 3. There is no airspace consolidation typical for pneumonia or pleural effusion. 4. Cardiomegaly. 5. Numerous mildly enlarged mediastinal lymph nodes are nonspecific and may be reactive. Correlate clinically. 6. Additional findings as above. Medications Administered ER Medications Given: Cefepime 2g IV ECG Rate (beats per minute): 114 Rhythm: sinus tachycardia Findings: + nonspecific-ST abn (Lateral) and + PVC Comparison ECG Date: from (August 22, 2022) Change: the following changes noted (PVCs, premature supraventricular complexes) Code Status & VTE Plan Code Status Full VTE Prophylaxis Plan VTE Prophylaxis will be ordered: Yes PG Care Time/CCT Total # of Minutes Spent Total Time Spent with Patient: Total time spent is greater than 50% in coordination of care (as documented) at patient's floor/unit and/or counseling patient: Coding Level of Care Code 29780 INT INP/OBS CARE MIN Diagnoses Non-ST elevated myocardial infarction (non-STEMI) I21.4 Leukocytosis D72.829 Hypoxia R09.02 Hypertension I10 Vomiting R11.10 Chronic reflux esophagitis K21.0
[2022-08-24 11:03] LABS: Appearance Urine Clear (Clear); Bacteria Urine Automated Negative (Negative); Bilirubin Urine Negative (Negative); Blood Urine Negative (Negative); Color Urine Dark Yellow; Glucose Urine UA Negative (Negative); Ketones Urine Trace (Negative); Leukocyte Esterase Urine Trace (Negative); Nitrite Urine Negative (Negative); Protein Urine Negative (Negative); RBC Urine Automated 0-4 /hpf (0-4); Specific Gravity Urine 1.038 (1.000-1.030); Urobilinogen Urine Negative (Negative)
[2022-08-24] MEDS: MAGNESIUM SULFATE / D5W 1 GM/100 ML BAG IV SCH ×2 (11:06→12:18)
[2022-08-24] MEDS ORDERED: FAMOTIDINE 20MG IV PUSH 20 MG/5 ML SYR IV STA (11:45)
[2022-08-24] MEDS ORDERED: Heparin IV Adult Wt-Based Low-Dose WITH Bolus Protocol IV STA (11:57)
[2022-08-24 12:13] LABS: Lyme Ab IgG w/WB Rflx Negative (Negative); Lyme Ab IgM w/WB Rflx Negative (Negative)
[2022-08-24 12:33] LABS: Bordetella parapertussis PCR Not Detected (NotDetected); Bordetella pertussis PCR Not Detected (NotDetected); Chlamydia pneumoniae PCR Not Detected (NotDetected); Coronavirus 229E PCR Not Detected (NotDetected); Coronavirus CoV-2 (COVID19)PCR Not Detected (NotDetected); Coronavirus HKU1 PCR Not Detected (NotDetected); Coronavirus NL63 PCR Not Detected (NotDetected); Coronavirus OC43PCR Not Detected (NotDetected); Human Metapneumovirus PCR Not Detected (NotDetected); Influenza A PCR Not Detected (NotDetected); Influenza B PCR Not Detected (NotDetected); Mycoplasma pneumoniae PCR Not Detected (NotDetected); Parainfluenza Virus 1 PCR Not Detected (NotDetected); Parainfluenza Virus 2 PCR Not Detected (NotDetected); Parainfluenza Virus 3 PCR Not Detected (NotDetected); Parainfluenza Virus 4 PCR Not Detected (NotDetected); Respiratory Syncytial VirusPCR Not Detected (NotDetected); Rhinovirus/Enterovirus PCR Not Detected (NotDetected)
--- NOTE | 2022-08-24 12:35 | XCELERA ---
[id number]
[2022-08-24 12:36] LABS: Adenovirus PCR DETECTED (NotDetected)
[2022-08-24] MEDS ORDERED: HEPARIN SOD (PORCINE) 1000 UNIT/ML IV ONE (12:45)
[2022-08-24] MEDS: HEPARIN SODIUM/DEXTROSE 25,000 UNITS/500 ML BAG IV SCH (13:00)
[2022-08-24] MEDS ORDERED: NITROGLYCERIN SL 0.4 MG/TAB TAB SL PRN (13:58)
--- NOTE | 2022-08-24 14:10 | Cardiology Consultation ---
Date of Consultation August 24, 2022 Assessment & Plan (1) Non-ST elevated myocardial infarction (non-STEMI): (2) Hypertension: (3) Dyslipidemia: (4) Vomiting: (5) Hypoxia: (6) Leukocytosis: Plan ASSESSMENT/PLAN: 1. NSTEMI: Discussed today's findings (echo and troponin) with patient and his . Currently chest pain-free. No urgent indication for cardiac catheterization. Likely to have obstructive CAD. For recurrent angina, consider urgent cardiac catheterization. Heparin drip. Aspirin. Was bradycardic yesterday throughout the day. If heart rate remains elevated, consider low-dose beta-jourdan. High intensity statin therapy recommended. Can continue home LEILA inhibitor if no contraindication. Has been intermittently mildly hypotensive. 2. Hypertension: Blood pressure lower today than yesterday. Concern for underlying infection given elevated heart rate compared to yesterday, elevated WBC (significant change from yesterday), lower blood pressures, shaking chills at home. No changes today. 3. Dyslipidemia: High intensity statin therapy. Can discontinue Zetia. 4. Leukocytosis/chills/vomiting: Concern for underlying infectious process, which may be contributing to anginal symptoms in the setting of likely underlying obstructive CAD. Defer to primary hospitalist service. Has been receiving antibiotics as an outpatient for UTI and received cefepime today in the emergency department. Family is worried about tickborne illness, which was relayed to Dr. Claros as per his 's request. 5. Hypoxia: He does not appear hypervolemic and in fact was n.p.o. for most of yesterday and then vomited today. Dr. Claros expressed concern for aspiration with today's vomiting episodes. As per Dr. Claros/hospitalist service. Oxygen saturation acceptable on supplemental oxygen. 6. Disposition: Cardiology will continue to follow. Plan of care discussed with Dr. Claros of the primary hospitalist service. Highly complex medical issues. Thank you for allowing me to participate in the care of your patient. Please call for any other questions or concerns. Sincerely, Chon Morrow M.D. History of Present Illness Reason for Consultation: NSTEMI Requesting Physician: Hayden Claros MD Attending Physician: Hayden Claros MD History of Present Illness Mr. Rangel is a very pleasant 82-year-old gentleman with a history significant for hypertension and dyslipidemia. He was hospitalized on 08/24/2022 with chest pain and elevated troponin. He was hospitalized on 09-10 with chills, low-grade fever, nausea/vomiting, confusion, and chest pain. His high-sensitivity troponin at that time was 1718 and trended downward from presentation. He was hospitalized until 08/24/2022 without recurrent chest pain and was able to ambulate in the hallway without symptoms and therefore was discharged home with plans for noninvasive ischemic evaluation given concern for infection. He had been being treated for UTI. It was recommended that he come back to the hospital for recurrent symptoms. He presented today on 08/24/2022 with multiple symptoms. He once again had shaking chills on 08/23/2022 at approximately 10 PM in bed. At approximately 4 AM, he indicated to his that he was experiencing chest discomfort which apparently was short-lived. He then vomited 3 times over the next 1 to 2 hours. Family had to help him get dressed to come to the hospital as he was unable to do it himself, which is not usual. Here, he has been chest pain-free. He was found to have leukocytosis, with WBC increasing from 5.99 yesterday to 22.2 today. He was hypoxic and placed on supplemental oxygen. His BNP was mildly elevated. He had been n.p.o. for much of yesterday prior to discharge, before vomiting this morning. He denies shortness of breath, orthopnea, syncope, near syncope, palpitations, edema, or bleeding. His states that he also complained of dizziness this morning. His provided most of the history, as well as reviewing records and discussing with admitting hospitalist, Dr. Claros. When asked about presenting events, the patient himself had no recollection and looked to his to help answer. He remains chest pain-free and on supplemental oxygen, has normal oxygen saturation and denies shortness of breath. Review of systems: As above. Review of systems otherwise negative/unremarkable. Family history: No known premature CAD. Social history: Denies smoking, alcohol, or drug abuse. He lives at home with his . 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 He has 4 children, 3 biologic. None of them live locally. He has a child in [place] (son), [place], [place] (daughter tank tester), and [facility] (teacher). His was present at the bedside. Allergies Allergy/AdvReac Type Severity Reaction Status Date / Time ragweed pollen Allergy Unknown Verified 08/24/22 11:13 Tetracyclines Allergy Unknown Verified 08/24/22 11:13 Home Medications Medication Instructions Recorded Confirmed Type vitamins A,C,[id number]-[id number] 4,296 1 cap PO BID 12/13/18 08/24/22 History mcg-226 mg-90 mg capsule (PreserVision AREDS) glucosamine [id number] 1 tab PO DAILY 12/15/18 08/24/22 History frank 1,500 mg-400 unit-100 mg tablet (Osteo Bi-Flex (5-Loxin)) omega-3 fatty acids 1,000 mg 1,000 mg PO DAILY 12/15/18 08/24/22 History capsule finasteride 5 mg tablet 5 mg PO DAILY #90 tabs 10/15/21 08/24/22 Rx lisinopril 10 mg tablet See Rx Instructions .Route 01/07/22 08/24/22 Rx .COMPLEX #90 tabs desonide 0.05 % topical ointment 1 applic topical BID #15 grams 01/22/22 08/24/22 Rx diclofenac sodium 1 % topical gel 2 g topical QID PRN pain, moderate 02/25/22 08/24/22 Rx #100 grams escitalopram oxalate 10 mg tablet 10 mg PO DAILY #90 tabs 06/04/22 08/24/22 Rx (Lexapro) ezetimibe 10 mg tablet 10 mg PO DAILY #90 tabs 06/04/22 08/24/22 Rx Patient History Medical History Actinic keratosis Dyslipidemia Hypertension Nephrolithiasis UTI (urinary tract infection) Surgical History S/P tonsillectomy Status post laser lithotripsy of ureteral calculus Family History Grandfather Colorectal cancer Denies family history of Ovarian cancer Prostate cancer Myocardial infarction Breast cancer Social History Smoking Status: Never smoker Tobacco Type: Cigars Age Started Using Tobacco: 14; Age Quit Using Tobacco: 19; Cigarettes Per Day: JUST HERE AND THERE MOSTLY CIGARS; Second Hand Exposure: No; Do You Dip or Chew Tobacco: No; Hx Alcohol Use: No Hx Substance Use: No Preferred Language: Italian Communication Ability: Effective Visual Impairment: No Limitations Hearing Ability: Use of Hearing Aid Manager Lvn Required: No Beliefs That Will Affect Care: None marital status: Current Living Situation: Spouse current occupational status: retired 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 Alert. HEENT: Anicteric sclera. Neck: No JVD. No hepatojugular reflux. No bruits. Normal carotid upstrokes bilaterally. Cardiac: No ventricular heave. Regular. Normal S1-S2. No murmurs, rubs, or gallops. Pulmonary: Bibasilar crackles. Otherwise clear to auscultation bilaterally. Abdomen: Soft, nontender, nondistended, with normoactive bowel sounds. No bruits noted. Extremities: 2+ radial pulses bilaterally. 2+ posterior tibialis pulses bilaterally. No edema or cyanosis. No palpable cords. Psychiatric: Affect appears appropriate. Results & Data Vital Signs (Past 12 Hours) Vital Signs Temp Pulse Pulse Resp BP BP Pulse Ox 08/24/22 13:30 61 18 102/61 96 08/24/22 13:00 69 21 101/62 97 08/24/22 12:30 68 19 97/57 L 96 08/24/22 12:00 68 21 106/62 95 08/24/22 11:30 94 H 21 103/69 96 08/24/22 11:00 82 14 90/59 L 94 08/24/22 12:38 66 08/24/22 10:30 87 18 102/68 94 08/24/22 10:13 93 H 20 107/70 95 08/24/22 09:30 93 H 22 104/66 93 08/24/22 09:00 98 H 16 101/73 93 08/24/22 08:30 108 H 16 101/70 91 08/24/22 08:19 08/24/22 08:19 108 H 16 114/82 91 08/24/22 08:19 87 L 08/24/22 08:14 108 H 18 91 08/24/22 08:18 123 H 08/24/22 08:17 110 H 08/24/22 08:13 37.1 C 118 H 16 114/82 87 L O2 Del Method O2 Flow Rate 08/24/22 13:30 08/24/22 13:00 08/24/22 12:30 08/24/22 12:00 08/24/22 11:30 08/24/22 11:00 08/24/22 12:38 08/24/22 10:30 Nasal Cannula 4 08/24/22 10:13 Nasal Cannula 4 08/24/22 09:30 Nasal Cannula 4 08/24/22 09:00 Nasal Cannula 4 08/24/22 08:30 Nasal Cannula 4 08/24/22 08:19 Nasal Cannula 4 08/24/22 08:19 Nasal Cannula 4 08/24/22 08:19 Room Air, Nasal Cannula 08/24/22 08:14 Nasal Cannula 4 08/24/22 08:18 08/24/22 08:17 08/24/22 08:13 Room Air Laboratory Results Laboratory Results - last 24 hr 08/24/22 08/24/22 08/24/22 08:15 08:15 08:15 WBC 22.20 H RBC 4.71 Hgb 14.9 Hct 41.9 L MCV 89.0 MCH 31.6 MCHC 35.6 RDW Std Deviation 43.8 RDW Coeff of Bart 13.5 Plt Count 211 MPV 11.0 Immature Gran % (Auto) 3.4 Neut % (Auto) 90.6 Lymph % (Auto) 1.9 Andrews % (Auto) 3.2 Eos % (Auto) 0.7 Baso % (Auto) 0.2 Neut # (Auto) 20.11 H Lymph # (Auto) 0.43 L Andrews # (Auto) 0.70 H Eos # (Auto) 0.15 Baso # (Auto) 0.05 Immature Gran # (Auto) 0.76 H Toxic Granulation 1+ Toxic Vacuolation 1+ Polychromasia 1+ Tear Drop Cells 1+ ESR 49 H PT INR APTT PTT Ratio Sodium 138 Potassium 4.0 Chloride 104 Carbon Dioxide 22 Anion Gap 12 H BUN 33 H Creatinine 1.31 Est Cr Clr Drug Dosing Not Reportable Est GFR ( Amer) 57.5 Est GFR (Non-Af Amer) 49.6 BUN/Creatinine Ratio 25.2 H Glucose 164 H Lactate Calcium 9.4 Magnesium 1.7 Total Bilirubin 1.6 H AST 38 ALT 46 Alkaline Phosphatase 75 Troponin I High Sens 418.8 H* C-Reactive Protein 3.70 H B-Natriuretic Peptide Total Protein 7.4 Albumin 3.7 Globulin 3.7 Albumin/Globulin Ratio 1.0 Lipase 18 Procalcitonin Urine Color Urine Appearance Urine pH Ur Specific Philippi Urine Protein Urine Glucose (UA) Urine Ketones Urine Blood Urine Nitrite Urine Bilirubin Urine Urobilinogen Ur Leukocyte Esterase Urine WBC (Auto) Urine RBC (Auto) U Hyaline Cast (Auto) U Epithel Cells (Auto) Urine Bacteria (Auto) Adenovirus (PCR) Anaplasma Smear A. phagocytophilum DNA Babesia Smear Babesia microti DNA PCR B. pertussis DNA (PCR) B.parapertussis DNA PCR Lyme Disease IgG Ab Lyme Disease IgM Ab C. pneumoniae DNA (PCR) Coronavirus OC43 (PCR) Coronavirus HKU1 (PCR) Coronavirus 229E (PCR) SARS-CoV-2 (PCR) Coronavirus NL63 (PCR) E.chaffeensis DNA (PCR) Human Metapneumovir PCR Influenza Type A (PCR) Influenza Type B (PCR) M. pneumoniae (PCR) Parainfluenza 1 (PCR) Parainfluenza 2 (PCR) Parainfluenza 3 (PCR) Parainfluenza 4 (PCR) Q Fever Phase I IgG Ab Q Fever Phase I IgM Ab Q Fever Phase II IgG Ab Q Fever Phase II IgM Ab RSV (PCR) Entero/Rhino (PCR) Rickettsia IgG Ab Rickettsia IgM Ab SARS-CoV-2, RNA, NAAT Typhus Fever IgG Ab Typhus Fever IgM Ab 08/24/22 08/24/22 08/24/22 08:15 08:15 08:21 WBC RBC Hgb Hct MCV MCH MCHC RDW Std Deviation RDW Coeff of Bart Plt Count MPV Immature Gran % (Auto) Neut % (Auto) Lymph % (Auto) Andrews % (Auto) Eos % (Auto) Baso % (Auto) Neut # (Auto) Lymph # (Auto) Andrews # (Auto) Eos # (Auto) Baso # (Auto) Immature Gran # (Auto) Toxic Granulation Toxic Vacuolation Polychromasia Tear Drop Cells ESR PT 11.8 INR 1.1 APTT 26.0 PTT Ratio 0.9 Sodium Potassium Chloride Carbon Dioxide Anion Gap BUN Creatinine Est Cr Clr Drug Dosing Est GFR ( Amer) Est GFR (Non-Af Amer) BUN/Creatinine Ratio Glucose Lactate Calcium Magnesium Total Bilirubin AST ALT Alkaline Phosphatase Troponin I High Sens C-Reactive Protein B-Natriuretic Peptide 274 H Total Protein Albumin Globulin Albumin/Globulin Ratio Lipase Procalcitonin 1.27 H Urine Color Urine Appearance Urine pH Ur Specific [place] Urine Protein Urine Glucose (UA) Urine Ketones Urine Blood Urine Nitrite Urine Bilirubin Urine Urobilinogen Ur Leukocyte Esterase Urine WBC (Auto) Urine RBC (Auto) U Hyaline Cast (Auto) U Epithel Cells (Auto) Urine Bacteria (Auto) Adenovirus (PCR) Anaplasma Smear A. phagocytophilum DNA Babesia Smear Babesia microti DNA PCR B. pertussis DNA (PCR) B.parapertussis DNA PCR Lyme Disease IgG Ab Lyme Disease IgM Ab C. pneumoniae DNA (PCR) Coronavirus OC43 (PCR) Coronavirus HKU1 (PCR) Coronavirus 229E (PCR) SARS-CoV-2 (PCR) Coronavirus NL63 (PCR) E.chaffeensis DNA (PCR) Human Metapneumovir PCR Influenza Type A (PCR) Influenza Type B (PCR) M. pneumoniae (PCR) Parainfluenza 1 (PCR) Parainfluenza 2 (PCR) Parainfluenza 3 (PCR) Parainfluenza 4 (PCR) Q Fever Phase I IgG Ab Q Fever Phase I IgM Ab Q Fever Phase II IgG Ab Q Fever Phase II IgM Ab RSV (PCR) Entero/Rhino (PCR) Rickettsia IgG Ab Rickettsia IgM Ab SARS-CoV-2, RNA, NAAT Typhus Fever IgG Ab Typhus Fever IgM Ab 08/24/22 08/24/22 08/24/22 08:22 10:22 10:37 WBC RBC Hgb Hct MCV MCH MCHC RDW Std Deviation RDW Coeff of Bart Plt Count MPV Immature Gran % (Auto) Neut % (Auto) Lymph % (Auto) Andrews % (Auto) Eos % (Auto) Baso % (Auto) Neut # (Auto) Lymph # (Auto) Andrews # (Auto) Eos # (Auto) Baso # (Auto) Immature Gran # (Auto) Toxic Granulation Toxic Vacuolation Polychromasia Tear Drop Cells ESR PT INR APTT PTT Ratio Sodium Potassium Chloride Carbon Dioxide Anion Gap BUN Creatinine Est Cr Clr Drug Dosing Est GFR ( Amer) Est GFR (Non-Af Amer) BUN/Creatinine Ratio Glucose Lactate 2.2 H* Calcium Magnesium Total Bilirubin AST ALT Alkaline Phosphatase Troponin I High Sens C-Reactive Protein B-Natriuretic Peptide Total Protein Albumin Globulin Albumin/Globulin Ratio Lipase Procalcitonin Urine Color Dark Yellow Urine Appearance Clear Urine pH 5.0 Ur Specific Philippi 1.038 H Urine Protein Negative Urine Glucose (UA) Negative Urine Ketones Trace H Urine Blood Negative Urine Nitrite Negative Urine Bilirubin Negative Urine Urobilinogen Negative Ur Leukocyte Esterase Trace H Urine WBC (Auto) 1-5 Urine RBC (Auto) 0-4 U Hyaline Cast (Auto) 5-10 H U Epithel Cells (Auto) 10-20 H Urine Bacteria (Auto) Negative Adenovirus (PCR) Anaplasma Smear A. phagocytophilum DNA Babesia Smear Babesia microti DNA PCR B. pertussis DNA (PCR) B.parapertussis DNA PCR Lyme Disease IgG Ab Lyme Disease IgM Ab C. pneumoniae DNA (PCR) Coronavirus OC43 (PCR) Coronavirus HKU1 (PCR) Coronavirus 229E (PCR) SARS-CoV-2 (PCR) Coronavirus NL63 (PCR) E.chaffeensis DNA (PCR) Human Metapneumovir PCR Influenza Type A (PCR) Influenza Type B (PCR) M. pneumoniae (PCR) Parainfluenza 1 (PCR) Parainfluenza 2 (PCR) Parainfluenza 3 (PCR) Parainfluenza 4 (PCR) Q Fever Phase I IgG Ab Q Fever Phase I IgM Ab Q Fever Phase II IgG Ab Q Fever Phase II IgM Ab RSV (PCR) Entero/Rhino (PCR) Rickettsia IgG Ab Rickettsia IgM Ab SARS-CoV-2, RNA, NAAT NEGATIVE Typhus Fever IgG Ab Typhus Fever IgM Ab 08/24/22 08/24/22 08/24/22 11:03 11:03 11:03 WBC RBC Hgb Hct MCV MCH MCHC RDW Std Deviation RDW Coeff of Bart Plt Count MPV Immature Gran % (Auto) Neut % (Auto) Lymph % (Auto) Andrews % (Auto) Eos % (Auto) Baso % (Auto) Neut # (Auto) Lymph # (Auto) Andrews # (Auto) Eos # (Auto) Baso # (Auto) Immature Gran # (Auto) Toxic Granulation Toxic Vacuolation Polychromasia Tear Drop Cells ESR PT INR APTT PTT Ratio Sodium Potassium Chloride Carbon Dioxide Anion Gap BUN Creatinine Est Cr Clr Drug Dosing Est GFR ( Amer) Est GFR (Non-Af Amer) BUN/Creatinine Ratio Glucose Lactate Calcium Magnesium Total Bilirubin AST ALT Alkaline Phosphatase Troponin I High Sens C-Reactive Protein B-Natriuretic Peptide Total Protein Albumin Globulin Albumin/Globulin Ratio Lipase Procalcitonin Urine Color Urine Appearance Urine pH Ur Specific [place] Urine Protein Urine Glucose (UA) Urine Ketones Urine Blood Urine Nitrite Urine Bilirubin Urine Urobilinogen Ur Leukocyte Esterase Urine WBC (Auto) Urine RBC (Auto) U Hyaline Cast (Auto) U Epithel Cells (Auto) Urine Bacteria (Auto) Adenovirus (PCR) Anaplasma Smear See Comment A. phagocytophilum DNA Babesia Smear See Comment Babesia microti DNA PCR B. pertussis DNA (PCR) B.parapertussis DNA PCR Lyme Disease IgG Ab Negative Lyme Disease IgM Ab Negative C. pneumoniae DNA (PCR) Coronavirus OC43 (PCR) Coronavirus HKU1 (PCR) Coronavirus 229E (PCR) SARS-CoV-2 (PCR) Coronavirus NL63 (PCR) E.chaffeensis DNA (PCR) Pending Human Metapneumovir PCR Influenza Type A (PCR) Influenza Type B (PCR) M. pneumoniae (PCR) Parainfluenza 1 (PCR) Parainfluenza 2 (PCR) Parainfluenza 3 (PCR) Parainfluenza 4 (PCR) Q Fever Phase I IgG Ab Q Fever Phase I IgM Ab Q Fever Phase II IgG Ab Q Fever Phase II IgM Ab RSV (PCR) Entero/Rhino (PCR) Rickettsia IgG Ab Rickettsia IgM Ab SARS-CoV-2, RNA, NAAT Typhus Fever IgG Ab Typhus Fever IgM Ab 08/24/22 08/24/22 08/24/22 11:03 11:03 11:03 WBC RBC Hgb Hct MCV MCH MCHC RDW Std Deviation RDW Coeff of Bart Plt Count MPV Immature Gran % (Auto) Neut % (Auto) Lymph % (Auto) Andrews % (Auto) Eos % (Auto) Baso % (Auto) Neut # (Auto) Lymph # (Auto) Andrews # (Auto) Eos # (Auto) Baso # (Auto) Immature Gran # (Auto) Toxic Granulation Toxic Vacuolation Polychromasia Tear Drop Cells ESR PT INR APTT PTT Ratio Sodium Potassium Chloride Carbon Dioxide Anion Gap BUN Creatinine Est Cr Clr Drug Dosing Est GFR ( Amer) Est GFR (Non-Af Amer) BUN/Creatinine Ratio Glucose Lactate Calcium Magnesium Total Bilirubin AST ALT Alkaline Phosphatase Troponin I High Sens C-Reactive Protein B-Natriuretic Peptide Total Protein Albumin Globulin Albumin/Globulin Ratio Lipase Procalcitonin Urine Color Urine Appearance Urine pH Ur Specific [place] Urine Protein Urine Glucose (UA) Urine Ketones Urine Blood Urine Nitrite Urine Bilirubin Urine Urobilinogen Ur Leukocyte Esterase Urine WBC (Auto) Urine RBC (Auto) U Hyaline Cast (Auto) U Epithel Cells (Auto) Urine Bacteria (Auto) Adenovirus (PCR) Anaplasma Smear A. phagocytophilum DNA Pending Babesia Smear Babesia microti DNA PCR Pending B. pertussis DNA (PCR) B.parapertussis DNA PCR Lyme Disease IgG Ab Lyme Disease IgM Ab C. pneumoniae DNA (PCR) Coronavirus OC43 (PCR) Coronavirus HKU1 (PCR) Coronavirus 229E (PCR) SARS-CoV-2 (PCR) Coronavirus NL63 (PCR) E.chaffeensis DNA (PCR) Human Metapneumovir PCR Influenza Type A (PCR) Influenza Type B (PCR) M. pneumoniae (PCR) Parainfluenza 1 (PCR) Parainfluenza 2 (PCR) Parainfluenza 3 (PCR) Parainfluenza 4 (PCR) Q Fever Phase I IgG Ab Pending Q Fever Phase I IgM Ab Pending Q Fever Phase II IgG Ab Pending Q Fever Phase II IgM Ab Pending RSV (PCR) Entero/Rhino (PCR) Rickettsia IgG Ab Pending Rickettsia IgM Ab Pending SARS-CoV-2, RNA, NAAT Typhus Fever IgG Ab Pending Typhus Fever IgM Ab Pending 08/24/22 08/24/22 08/24/22 11:03 12:17 Unknown WBC RBC Hgb Hct MCV MCH MCHC RDW Std Deviation RDW Coeff of Bart Plt Count MPV Immature Gran % (Auto) Neut % (Auto) Lymph % (Auto) Andrews % (Auto) Eos % (Auto) Baso % (Auto) Neut # (Auto) Lymph # (Auto) Andrews # (Auto) Eos # (Auto) Baso # (Auto) Immature Gran # (Auto) Toxic Granulation Toxic Vacuolation Polychromasia Tear Drop Cells ESR PT INR APTT PTT Ratio Sodium Potassium Chloride Carbon Dioxide Anion Gap BUN Creatinine Est Cr Clr Drug Dosing Est GFR ( Amer) Est GFR (Non-Af Amer) BUN/Creatinine Ratio Glucose Lactate 2.0 Calcium Magnesium Total Bilirubin AST ALT Alkaline Phosphatase Troponin I High Sens 1109.8 H* D C-Reactive Protein B-Natriuretic Peptide Total Protein Albumin Globulin Albumin/Globulin Ratio Lipase Procalcitonin Urine Color Urine Appearance Urine pH Ur Specific [place] Urine Protein Urine Glucose (UA) Urine Ketones Urine Blood Urine Nitrite Urine Bilirubin Urine Urobilinogen Ur Leukocyte Esterase Urine WBC (Auto) Urine RBC (Auto) U Hyaline Cast (Auto) U Epithel Cells (Auto) Urine Bacteria (Auto) Adenovirus (PCR) DETECTED A* Anaplasma Smear A. phagocytophilum DNA Babesia Smear Babesia microti DNA PCR B. pertussis DNA (PCR) Not Detected B.parapertussis DNA PCR Not Detected Lyme Disease IgG Ab Lyme Disease IgM Ab C. pneumoniae DNA (PCR) Not Detected Coronavirus OC43 (PCR) Not Detected Coronavirus HKU1 (PCR) Not Detected Coronavirus 229E (PCR) Not Detected SARS-CoV-2 (PCR) Not Detected Coronavirus NL63 (PCR) Not Detected E.chaffeensis DNA (PCR) Human Metapneumovir PCR Not Detected Influenza Type A (PCR) Not Detected Influenza Type B (PCR) Not Detected M. pneumoniae (PCR) Not Detected Parainfluenza 1 (PCR) Not Detected Parainfluenza 2 (PCR) Not Detected Parainfluenza 3 (PCR) Not Detected Parainfluenza 4 (PCR) Not Detected Q Fever Phase I IgG Ab Q Fever Phase I IgM Ab Q Fever Phase II IgG Ab Q Fever Phase II IgM Ab RSV (PCR) Not Detected Entero/Rhino (PCR) Not Detected Rickettsia IgG Ab Rickettsia IgM Ab SARS-CoV-2, RNA, NAAT Typhus Fever IgG Ab Typhus Fever IgM Ab Diagnostic Findings Labs personally reviewed and notable for: High-sensitivity troponin increasing from 418 to 1109. Mildly elevated BNP. Renal labs suggesting azotemia. Leukocytosis with WBC increasing from 5.99-22.2. Normal hemoglobin (increased from yesterday). ECG personally reviewed 08/24/2022: Sinus tachycardia with PACs and PVC [address] abnormality. Limited echo 08/24/2022: EF 65 to 70%. Severely hypokinetic to akinetic apex with mild hypokinesis of the mid anteroseptum. Mild LVH. Very small pericardial effusion (stable). Compared to 08/20/2022 study, LAD wall motion abnormality is now present. Chest x-ray image personally reviewed: No obvious infiltrate. Per radiology, improved/resolved pulmonary edema. CTA chest 08/24/2022: Densely calcified coronary arteries. Significant motion compromised examination. No noted PE. No airspace consolidation. Numerous mildly enlarged mediastinal lymph nodes are nonspecific. Hiatal hernia. Small pericardial effusion. Medications Administered Current Inpatient Medications Escitalopram Oxalate (Escitalopram Oxalate 10 Mg Tab) 10 mg PO DAILY [facility]ISSETTE Stop: 09/23/22 13:57 Finasteride (Finasteride 5 Mg Tab) 5 mg PO DAILY [facility] Stop: 09/23/22 13:57 Heparin Sodium/Dextrose (Heparin Sodium/Dextrose) 25,000 units in 500 mls @ 19 mls/hr IV .Q24H LISSETTE; Protocol Stop: 09/23/22 12:14 Last Admin: 08/24/22 13:00 Dose: 950 units/hr, 19 mls/hr Lactated Ringer's (Lr) 1,000 mls @ 100 mls/hr IV .Q10H [facility] Stop: 09/23/22 13:29 Famotidine 20 mg/ Syringe 5 mls @ 2.5 mls/min IV QAM [facility] Stop: 09/24/22 08:59 Nitroglycerin (Nitroglycerin Sl 0.4 Mg/Tab Tab) 0.4 mg SL Q5M PRN PRN Reason: Chest Pain Stop: 09/23/22 13:57 PG Care Time/CCT Total # of Minutes Spent Total Time Spent with Patient: Total time spent is greater than 50% in coordination of care (as documented) at patient's floor/unit and/or counseling patient: Coding Level of Care Code 91014 INT INP/OBS CARE 3/75MIN Diagnoses Non-ST elevated myocardial infarction (non-STEMI) I21.4 Hypertension I10 Dyslipidemia E78.5 Vomiting R11.10 Hypoxia R09.02 Leukocytosis D72.829
--- NOTE | 2022-08-24 14:40 | Emergency Department Note ---
Impression & Plan Hypoxia, Leukocytosis, Elevated troponin ED Provider Note INFORMANT: Patient ED PROVIDER(S): John Block MD CHIEF COMPLAINT: PLAN: Disposition: Admitted Condition: Guarded Outpatient prescription management: none Referral: None MEDICAL DECISION MAKING: Patient presented because of feeling lousy and having a brief episode of chest pain. He was mildly hypoxic for EMS and here. He responded very well to supplemental oxygen and stated felt better with this. He underwent a work-up. Chest x-ray was improved from prior. His ECG showed nonspecific ST changes. Patient had a marked elevation of his white blood cell count at 22,000. Cultures were obtained. Patient was empirically given cefepime. His CBC and chemistry panel reveals mild dehydration as well as an elevated troponin. This troponin was less than prior. He did have some mild elevation of his inf lammatory markers. BNP was minimally elevated as well. Because of the recent cardiac event and elevated BNP he was not aggressively hydrated from a sepsis standpoint. A CT PE study was performed to rule out pulmonary embolism. None seen. Further management in the hospital will be necessary. Consultation was made with Dr. Claros of the [facility] hospitalist service. A bio fire test was added and after discussion with tickborne labs were added as well. Patient was found to be adenovirus positive. Patient was admitted for further management. Discussed with transit manager After review of the information above and other included data, I feel the patient requires admission. Triage Nursing notes reviewed and agree them. Vital Signs: reviewed and remarkable for mild tachycardia Prior /Outside records reviewed: Hospitalization records reviewed. Differential diagnosis: Infection, dehydration, metabolic abnormality, hypo/hyperglycemia, electrolyte disturbance, anemia, hypoxia, cardiac sources, intracerebral event, toxicologic, neurologic, as well as other pathologies. Diagnostics, as interpreted by me: ECG: Twelve-lead ECG reveals a sinus tachycardia at [address] changes. PVC present. No ST elevation. Cardiac Monitoring: Cardiac monitoring ordered by me: The patient was placed on continuous cardiac monitoring and observed. It revealed a normal sinus rhythm at 98 beats per minute without ectopy or evidence of dysrhythmia. Medical decision rules: none Imaging studies: Chest x-ray shows some mild cardiomegaly but no infiltrate. When compared to prior there is improvement of pulmonary edema. CT PE study negative for pulmonary embolus or pneumonia. I refer you to the EMR for further details. HPI: The patient is a 82year old male with recent hospital admission for non- STEMI who presents to the Emergency Room with complaints of malaise and a brief episode of chest pain. Patient states he was discharged yesterday and went home. He was feeling good. He woke up from sleep and stated he was feeling "lousy". He had chest pain last night that was midsternal. Patient was attended to by EMS and was found to be mildly hypoxic. He responded well to supplemental oxygen. He does note the oxygen did make him feel better. The patient also notes the following associated symptoms, fatigue. The patient has given no medication for relieving factors. Current pain is rated as 0/10. Pt denies LOC, headache, fevers, chills, diaphoresis, visual changes, neck pain, breathing difficulties, nausea, vomiting, abdominal pain, back pain, melena, hematochezia, urinary symptoms, numbness, focal weakness, lymphadenopathy, rash, or other complaints. PAST MEDICAL HISTORY:CAD, non-STEMI, see below PAST SURGICAL HISTORY: See Below, SOCIAL HISTORY: See Below, HOME MEDICATIONS: See Below ALLERGIES: See Below VITALS: See Below PHYSICAL EXAMINATION: GENERAL: Awake, tired-appearing, in no distress HENT: Normocephalic, atraumatic. Oropharynx unremarkable. EYES: Normal conjunctiva. Sclera non-icteric. NECK: Inspection normal. Non-tender. Supple. No nuchal rigidity. FROM. No masses. RESPIRATORY: Clear to auscultation. No wheezes. No rales. Normal respiratory ef fort. CARDIAC: Tachycardic rate. Normal rhythm. No murmurs. No rubs. Extremities warm and well perfused. Pulses equal. No JVD. GI: Soft, non-distended. No tenderness to palpation. No rebound or guarding. No masses. RECTAL: Deferred. MUSCULOSKELETAL: Atraumatic. Chest examination reveals no tenderness. The back is symmetrical on inspection without obvious abnormality. There is no CVA tenderness to palpation. No joint edema. LOWER EXTREMITIES: Calves are equal size bilaterally and non-tender. No edema. No discoloration. NEURO: Normal sensorium. No sensory or motor deficits noted. SKIN: No rash or jaundice noted. Past Med/Surg History Medical History Actinic keratosis Dyslipidemia Hypertension Nephrolithiasis UTI (urinary tract infection) Surgical History S/P tonsillectomy Status post laser lithotripsy of ureteral calculus Family History Grandfather Colorectal cancer Denies family history of Ovarian cancer Prostate cancer Myocardial infarction Breast cancer Social History Smoking Status: Never smoker Tobacco Type: Cigars Age Started Using Tobacco: 14; Age Quit Using Tobacco: 19; Cigarettes Per Day: JUST HERE AND THERE MOSTLY CIGARS; Second Hand Exposure: No; Do You Dip or Chew Tobacco: No; Hx Alcohol Use: No Hx Substance Use: No Preferred Language: Portuguese Communication Ability: Effective Visual Impairment: No Limitations Hearing Ability: Use of Hearing Aid 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 Teacher Required: No Beliefs That Will Affect Care: None marital status: Current Living Situation: Spouse current occupational status: retired current occupation: RETIRED [employer] Feels Safe at Home: Yes Childhood Exposure to Second-Hand Smoke: No Diet: regular Dental Care, Regularly: Yes Physical Activity Frequency: 5-6 Times per Week Seatbelt Use: always Sunscreen Use: Yes Assistive Devices: None Allergies Allergies Allergy/AdvReac Type Severity Reaction Status Date / Time ragweed pollen Allergy Unknown Verified 08/24/22 11:13 Tetracyclines Allergy Unknown Verified 08/24/22 11:13 Home Meds Home Medications Medication Instructions Recorded Confirmed vitamins A,C,[id number]-sxgm-vrlykw 4,296 1 cap PO BID 12/13/18 08/24/22 mcg-226 mg-90 mg capsule (PreserVision AREDS) glucosamine [id number] 1 tab PO DAILY 12/15/18 08/24/22 frank 1,500 mg-400 unit-100 mg tablet (Osteo Bi-Flex (5-Loxin)) omega-3 fatty acids 1,000 mg 1,000 mg PO DAILY 12/15/18 08/24/22 capsule Previous Rx's Medication Instructions Recorded finasteride 5 mg tablet 5 mg PO DAILY #90 tabs 10/15/21 lisinopril 10 mg tablet See Rx Instructions .Route 01/07/22 .COMPLEX #90 tabs desonide 0.05 % topical ointment 1 applic topical BID #15 grams 01/22/22 diclofenac sodium 1 % topical gel 2 g topical QID PRN pain, moderate 02/25/22 #100 grams escitalopram oxalate 10 mg tablet 10 mg PO DAILY #90 tabs 06/04/22 (Lexapro) ezetimibe 10 mg tablet 10 mg PO DAILY #90 tabs 06/04/22 Results & Data (ED) Vital Signs Vital Signs - 24 hr 08/24/22 08:13 08/24/22 08:17 08/24/22 08:18 Temperature 37.1 C Temperature Source Oral Pulse Rate 118 H 110 H 123 H Pulse Rate [Apical] Pulse Rate from SpO2 Sensor Respiratory Rate 16 Respiratory Effort / Characteristics Non-Labored Spontaneous Respiratory Depth Normal Respiratory Pattern Regular Blood Pressure 114/82 Blood Pressure [Right Arm] Blood Pressure Mean 92 Blood Pressure Mean [Right Arm] Blood Pressure Position [Right Arm] Pulse Oximetry 87 L Oxygen Delivery Method Room Air Oxygen Flow Rate Sepsis Recent Fever Within 48 Hours No Sepsis New/Unexplained Change in Mental Status N/A Sepsis Action Taken by Nursing No Action Required Oxygen Flow Rate - Titration Pulse Oximetry Post Tiitration 08/24/22 08:14 08/24/22 08:19 08/24/22 08:19 Temperature Temperature Source Pulse Rate 108 H Pulse Rate [Apical] 108 H Pulse Rate from SpO2 Sensor Respiratory Rate 18 16 Respiratory Effort / Characteristics Non-Labored Spontaneous Respiratory Depth Normal Respiratory Pattern Regular Blood Pressure Blood Pressure [Right Arm] 114/82 Blood Pressure Mean Blood Pressure Mean [Right Arm] 92 Blood Pressure Position [Right Arm] Sitting Pulse Oximetry 91 87 L 91 Oxygen Delivery Method Nasal Cannula Room Air Nasal Cannula Nasal Cannula Oxygen Flow Rate 4 4 Sepsis Recent Fever Within 48 Hours Sepsis New/Unexplained Change in Mental Status Sepsis Action Taken by Nursing Oxygen Flow Rate - Titration 4 Pulse Oximetry Post Tiitration 91 08/24/22 08:19 08/24/22 08:30 08/24/22 09:00 Temperature Temperature Source Pulse Rate 108 H 98 H Pulse Rate [Apical] Pulse Rate from SpO2 Sensor 108 H 87 Respiratory Rate 16 16 Respiratory Effort / Characteristics Respiratory Depth Respiratory Pattern Blood Pressure 101/70 101/73 Blood Pressure [Right Arm] Blood Pressure Mean 80 82 Blood Pressure Mean [Right Arm] Blood Pressure Position [Right Arm] Pulse Oximetry 91 93 Oxygen Delivery Method Nasal Cannula Nasal Cannula Nasal Cannula Oxygen Flow Rate 4 4 4 Sepsis Recent Fever Within 48 Hours Sepsis New/Unexplained Change in Mental Status Sepsis Action Taken by Nursing Oxygen Flow Rate - Titration Pulse Oximetry Post Tiitration 08/24/22 09:30 08/24/22 10:13 08/24/22 10:30 Temperature Temperature Source Pulse Rate 93 H 93 H 87 Pulse Rate [Apical] Pulse Rate from SpO2 Sensor 87 86 79 Respiratory Rate 22 20 18 Respiratory Effort / Characteristics Respiratory Depth Respiratory Pattern Blood Pressure 104/66 107/70 102/68 Blood Pressure [Right Arm] Blood Pressure Mean 78 82 79 Blood Pressure Mean [Right Arm] Blood Pressure Position [Right Arm] Pulse Oximetry 93 95 94 Oxygen Delivery Method Nasal Cannula Nasal Cannula Nasal Cannula Oxygen Flow Rate 4 4 4 Sepsis Recent Fever Within 48 Hours Sepsis New/Unexplained Change in Mental Status Sepsis Action Taken by Nursing Oxygen Flow Rate - Titration Pulse Oximetry Post Tiitration 08/24/22 11:00 Temperature Temperature Source Pulse Rate 82 Pulse Rate [Apical] Pulse Rate from SpO2 Sensor 83 Respiratory Rate 14 Respiratory Effort / Characteristics Respiratory Depth Respiratory Pattern Blood Pressure 90/59 L Blood Pressure [Right Arm] Blood Pressure Mean 69 Blood Pressure Mean [Right Arm] Blood Pressure Position [Right Arm] Pulse Oximetry 94 Oxygen Delivery Method Oxygen Flow Rate Sepsis Recent Fever Within 48 Hours Sepsis New/Unexplained Change in Mental Status Sepsis Action Taken by Nursing Oxygen Flow Rate - Titration Pulse Oximetry Post Tiitration Laboratory Data 08/24/22 08:15 08/24/22 08:15 Lab Results 08/24/22 08/24/22 08/24/22 Range/Units 08:15 08:15 08:15 WBC 22.20 H (4.8-10.8) K/ul RBC 4.71 (4.70-6.10) M/uL Hgb 14.9 (14.0-18.0) g/dl Hct 41.9 L (42.0-52.0) % MCV 89.0 (80.0-100.0) fL MCH 31.6 (25.0-34.0) pg MCHC 35.6 (32.0-36.0) g/dL RDW Std Deviation 43.8 (36.4-46.3) fL RDW Coeff of Bart 13.5 (11.5-14.5) % Plt Count 211 (130-400) K/uL MPV 11.0 (9.4-12.4) fL Immature Gran % (Auto) 3.4 % Neut % (Auto) 90.6 % Lymph % (Auto) 1.9 % [place] % (Auto) 3.2 % Eos % (Auto) 0.7 % Baso % (Auto) 0.2 % Neut # (Auto) 20.11 H (1.40-6.50) K/uL Lymph # (Auto) 0.43 L (1.2-3.4) K/uL [place] # (Auto) 0.70 H (0.11-0.59) K/uL Eos # (Auto) 0.15 (0-0.50) K/uL Baso # (Auto) 0.05 (0-0.2) K/uL Immature Gran # (Auto) 0.76 H (0.01-0.20) K/uL Toxic Granulation 1+ Toxic Vacuolation 1+ Polychromasia 1+ Tear Drop Cells 1+ ESR 49 H (0-20) mm/hr PT (9.0-12.0) Seconds INR (0.9-1.1) APTT (21.0-31.0) Seconds PTT Ratio Sodium 138 (136-145) mmol/L Potassium 4.0 (3.5-5.1) mmol/L Chloride 104 (98-107) mmol/L Carbon Dioxide 22 (21-32) mmol/L Anion Gap 12 H (3-11) BUN 33 H (6-23) mg/dl Creatinine 1.31 (0.6-1.4) mg/dl Est Cr Clr Drug Dosing Not Reportable Est GFR ( Amer) 57.5 ml/min Est GFR (Non-Af Amer) 49.6 ml/min BUN/Creatinine Ratio 25.2 H (10-20) Glucose 164 H (70-99(Fasting)) mg/dl Lactate (0.4-2.0) mmol/L Calcium 9.4 (8.6-10.3) mg/dl Magnesium 1.7 (1.7-2.4) mg/dl Total Bilirubin 1.6 H (0.2-1.0) mg/dl AST 38 (13-39) U/L ALT 46 (7-52) U/L Alkaline Phosphatase 75 (34-104) U/L Troponin I High Sens 418.8 H* (0-20) pg/ml C-Reactive Protein 3.70 H (0-0.5) mg/dl B-Natriuretic Peptide (0-100) pg/ml Total Protein 7.4 (6.0-8.3) gm/dl Albumin 3.7 (3.4-5.0) gm/dl Globulin 3.7 (2.5-4.0) gm/dl Albumin/Globulin Ratio 1.0 (0.9-2) Lipase 18 (11-82) U/L Procalcitonin (0-0.5) ng/ml Urine Color Urine Appearance (Clear) Urine pH (4.5-7.5) Ur Specific [place] (1.000-1.030) Urine Protein (Negative) Urine Glucose (UA) (Negative) Urine Ketones (Negative) Urine Blood (Negative) Urine Nitrite (Negative) Urine Bilirubin (Negative) Urine Urobilinogen (Negative) Ur Leukocyte Esterase (Negative) Urine WBC (Auto) (0-5) /hpf Urine RBC (Auto) (0-4) /hpf U Hyaline Cast (Auto) (0-5) /lpf U Epithel Cells (Auto) (0-5) /lpf Urine Bacteria (Auto) (Negative) Anaplasma Smear Babesia Smear Lyme Disease IgG Ab (Negative) Lyme Disease IgM Ab (Negative) SARS-CoV-2, RNA, NAAT (NEGATIVE) 08/24/22 08/24/22 08/24/22 Range/Units 08:15 08:15 08:21 WBC (4.8-10.8) K/ul RBC (4.70-6.10) M/uL Hgb (14.0-18.0) g/dl Hct (42.0-52.0) % MCV (80.0-100.0) fL MCH (25.0-34.0) pg MCHC (32.0-36.0) g/dL RDW Std Deviation (36.4-46.3) fL RDW Coeff of Bart (11.5-14.5) % Plt Count (130-400) K/uL MPV (9.4-12.4) fL Immature Gran % (Auto) % Neut % (Auto) % Lymph % (Auto) % [place] % (Auto) % Eos % (Auto) % Baso % (Auto) % Neut # (Auto) (1.40-6.50) K/uL Lymph # (Auto) (1.2-3.4) K/uL [place] # (Auto) (0.11-0.59) K/uL Eos # (Auto) (0-0.50) K/uL Baso # (Auto) (0-0.2) K/uL Immature Gran # (Auto) (0.01-0.20) K/uL Toxic Granulation Toxic Vacuolation Polychromasia Tear Drop Cells ESR (0-20) mm/hr PT 11.8 (9.0-12.0) Seconds INR 1.1 (0.9-1.1) APTT 26.0 (21.0-31.0) Seconds PTT Ratio 0.9 Sodium (136-145) mmol/L Potassium (3.5-5.1) mmol/L Chloride (98-107) mmol/L Carbon Dioxide (21-32) mmol/L Anion Gap (3-11) BUN (6-23) mg/dl Creatinine (0.6-1.4) mg/dl Est Cr Clr Drug Dosing Est GFR ( Amer) ml/min Est GFR (Non-Af Amer) ml/min BUN/Creatinine Ratio (10-20) Glucose (70-99(Fasting)) mg/dl Lactate (0.4-2.0) mmol/L Calcium (8.6-10.3) mg/dl Magnesium (1.7-2.4) mg/dl Total Bilirubin (0.2-1.0) mg/dl AST (13-39) U/L ALT (7-52) U/L Alkaline Phosphatase (34-104) U/L Troponin I High Sens (0-20) pg/ml C-Reactive Protein (0-0.5) mg/dl B-Natriuretic Peptide 274 H (0-100) pg/ml Total Protein (6.0-8.3) gm/dl Albumin (3.4-5.0) gm/dl Globulin (2.5-4.0) gm/dl Albumin/Globulin Ratio (0.9-2) Lipase (11-82) U/L Procalcitonin 1.27 H (0-0.5) ng/ml Urine Color Urine Appearance (Clear) Urine pH (4.5-7.5) Ur Specific [place] (1.000-1.030) Urine Protein (Negative) Urine Glucose (UA) (Negative) Urine Ketones (Negative) Urine Blood (Negative) Urine Nitrite (Negative) Urine Bilirubin (Negative) Urine Urobilinogen (Negative) Ur Leukocyte Esterase (Negative) Urine WBC (Auto) (0-5) /hpf Urine RBC (Auto) (0-4) /hpf U Hyaline Cast (Auto) (0-5) /lpf U Epithel Cells (Auto) (0-5) /lpf Urine Bacteria (Auto) (Negative) Anaplasma Smear Babesia Smear Lyme Disease IgG Ab (Negative) Lyme Disease IgM Ab (Negative) SARS-CoV-2, RNA, NAAT (NEGATIVE) 08/24/22 08/24/22 08/24/22 Range/Units 08:22 10:22 10:37 WBC (4.8-10.8) K/ul RBC (4.70-6.10) M/uL Hgb (14.0-18.0) g/dl Hct (42.0-52.0) % MCV (80.0-100.0) fL MCH (25.0-34.0) pg MCHC (32.0-36.0) g/dL RDW Std Deviation (36.4-46.3) fL RDW Coeff of Bart (11.5-14.5) % Plt Count (130-400) K/uL MPV (9.4-12.4) fL Immature Gran % (Auto) % Neut % (Auto) % Lymph % (Auto) % [place] % (Auto) % Eos % (Auto) % Baso % (Auto) % Neut # (Auto) (1.40-6.50) K/uL Lymph # (Auto) (1.2-3.4) K/uL [place] # (Auto) (0.11-0.59) K/uL Eos # (Auto) (0-0.50) K/uL Baso # (Auto) (0-0.2) K/uL Immature Gran # (Auto) (0.01-0.20) K/uL Toxic Granulation Toxic Vacuolation Polychromasia Tear Drop Cells ESR (0-20) mm/hr PT (9.0-12.0) Seconds INR (0.9-1.1) APTT (21.0-31.0) Seconds PTT Ratio Sodium (136-145) mmol/L Potassium (3.5-5.1) mmol/L Chloride (98-107) mmol/L Carbon Dioxide (21-32) mmol/L Anion Gap (3-11) BUN (6-23) mg/dl Creatinine (0.6-1.4) mg/dl Est Cr Clr Drug Dosing Est GFR ( Amer) ml/min Est GFR (Non-Af Amer) ml/min BUN/Creatinine Ratio (10-20) Glucose (70-99(Fasting)) mg/dl Lactate 2.2 H* (0.4-2.0) mmol/L Calcium (8.6-10.3) mg/dl Magnesium (1.7-2.4) mg/dl Total Bilirubin (0.2-1.0) mg/dl AST (13-39) U/L ALT (7-52) U/L Alkaline Phosphatase (34-104) U/L Troponin I High Sens (0-20) pg/ml C-Reactive Protein (0-0.5) mg/dl B-Natriuretic Peptide (0-100) pg/ml Total Protein (6.0-8.3) gm/dl Albumin (3.4-5.0) gm/dl Globulin (2.5-4.0) gm/dl Albumin/Globulin Ratio (0.9-2) Lipase (11-82) U/L Procalcitonin (0-0.5) ng/ml Urine Color Dark Yellow Urine Appearance Clear (Clear) Urine pH 5.0 (4.5-7.5) Ur Specific [place] 1.038 H (1.000-1.030) Urine Protein Negative (Negative) Urine Glucose (UA) Negative (Negative) Urine Ketones Trace H (Negative) Urine Blood Negative (Negative) Urine Nitrite Negative (Negative) Urine Bilirubin Negative (Negative) Urine Urobilinogen Negative (Negative) Ur Leukocyte Esterase Trace H (Negative) Urine WBC (Auto) 1-5 (0-5) /hpf Urine RBC (Auto) 0-4 (0-4) /hpf U Hyaline Cast (Auto) 5-10 H (0-5) /lpf U Epithel Cells (Auto) 10-20 H (0-5) /lpf Urine Bacteria (Auto) Negative (Negative) Anaplasma Smear Babesia Smear Lyme Disease IgG Ab (Negative) Lyme Disease IgM Ab (Negative) SARS-CoV-2, RNA, NAAT NEGATIVE (NEGATIVE) 08/24/22 08/24/22 08/24/22 Range/Units 11:03 11:03 11:03 WBC (4.8-10.8) K/ul RBC (4.70-6.10) M/uL Hgb (14.0-18.0) g/dl Hct (42.0-52.0) % MCV (80.0-100.0) fL MCH (25.0-34.0) pg MCHC (32.0-36.0) g/dL RDW Std Deviation (36.4-46.3) fL RDW Coeff of Bart (11.5-14.5) % Plt Count (130-400) K/uL MPV (9.4-12.4) fL Immature Gran % (Auto) % Neut % (Auto) % Lymph % (Auto) % [place] % (Auto) % Eos % (Auto) % Baso % (Auto) % Neut # (Auto) (1.40-6.50) K/uL Lymph # (Auto) (1.2-3.4) K/uL [place] # (Auto) (0.11-0.59) K/uL Eos # (Auto) (0-0.50) K/uL Baso # (Auto) (0-0.2) K/uL Immature Gran # (Auto) (0.01-0.20) K/uL Toxic Granulation Toxic Vacuolation Polychromasia Tear Drop Cells ESR (0-20) mm/hr PT (9.0-12.0) Seconds INR (0.9-1.1) APTT (21.0-31.0) Seconds PTT Ratio Sodium (136-145) mmol/L Potassium (3.5-5.1) mmol/L Chloride (98-107) mmol/L Carbon Dioxide (21-32) mmol/L Anion Gap (3-11) BUN (6-23) mg/dl Creatinine (0.6-1.4) mg/dl Est Cr Clr Drug Dosing Est GFR ( Amer) ml/min Est GFR (Non-Af Amer) ml/min BUN/Creatinine Ratio (10-20) Glucose (70-99(Fasting)) mg/dl Lactate (0.4-2.0) mmol/L Calcium (8.6-10.3) mg/dl Magnesium (1.7-2.4) mg/dl Total Bilirubin (0.2-1.0) mg/dl AST (13-39) U/L ALT (7-52) U/L Alkaline Phosphatase (34-104) U/L Troponin I High Sens 1109.8 H* D (0-20) pg/ml C-Reactive Protein (0-0.5) mg/dl B-Natriuretic Peptide (0-100) pg/ml Total Protein (6.0-8.3) gm/dl Albumin (3.4-5.0) gm/dl Globulin (2.5-4.0) gm/dl Albumin/Globulin Ratio (0.9-2) Lipase (11-82) U/L Procalcitonin (0-0.5) ng/ml Urine Color Urine Appearance (Clear) Urine pH (4.5-7.5) Ur Specific [place] (1.000-1.030) Urine Protein (Negative) Urine Glucose (UA) (Negative) Urine Ketones (Negative) Urine Blood (Negative) Urine Nitrite (Negative) Urine Bilirubin (Negative) Urine Urobilinogen (Negative) Ur Leukocyte Esterase (Negative) Urine WBC (Auto) (0-5) /hpf Urine RBC (Auto) (0-4) /hpf U Hyaline Cast (Auto) (0-5) /lpf U Epithel Cells (Auto) (0-5) /lpf Urine Bacteria (Auto) (Negative) Anaplasma Smear See Comment Babesia Smear See Comment Lyme Disease IgG Ab Negative (Negative) Lyme Disease IgM Ab Negative (Negative) SARS-CoV-2, RNA, NAAT (NEGATIVE) Administered Medications Heparin Sodium/Dextrose (Heparin Sodium/Dextrose) 25,000 units in 500 mls @ 19 mls/hr IV .Q24H [facility]; Protocol Stop: 09/23/22 12:14 Last Admin: 08/24/22 13:00 Dose: 950 units/hr, 19 mls/hr Documented By: NRB Co-signed By: [place] Discontinued Medications Heparin Sodium (Porcine) (Heparin Sod (Porcine) 1000 Unit/Ml) 4,000 units IV NOW ONE Stop: 08/24/22 12:46 Last Admin: 08/24/22 13:00 Dose: 4,000 units Documented By: BHASKAR Co-signed By: [place] Cefepime HCl (Maxipime) 2,000 mg in 20 mls @ 5 mls/min IV NOW STA; Protocol Stop: 08/24/22 09:27 Last Admin: 08/24/22 10:31 Dose: 5 mls/min Documented By: ANGELINE Magnesium Sulfate/Dextrose (Magnesium Sulfate / D5w) 1 gm in 100 mls @ 100 mls/hr IV Q1H [place] Stop: 08/24/22 12:45 Last Infusion: 08/24/22 13:25 Dose: 0 mls/hr Documented By: Admin: 08/24/22 12:18 Dose: 100 mls/hr Documented By: Infusion: 08/24/22 12:06 Dose: 100 mls/hr Documented By: Admin: 08/24/22 11:06 Dose: 100 mls/hr Documented By: BHASKAR Famotidine (Pepcid 20mg Iv Push) 20 mg in 5 mls @ 2.5 mls/min IV NOW STA Stop: 08/24/22 11:46 Last Admin: 08/24/22 12:55 Dose: 2.5 mls/min Documented By: BHASKAR Ioversol (Optiray 320 500ml) 112 ml IV ONCE ONE Stop: 08/24/22 09:49 Last Admin: 08/24/22 09:48 Dose: 112 ml Documented By: LINDA Imaging Data Radiologist's Impression: Chest X-Ray 08/24/22 08:14 XR chest 1V portable HISTORY: 82 years-old Male Chest pain, nonspecific COMPARISON: 08/20/2022 TECHNIQUE: AP view of the chest FINDINGS: Mild right hemidiaphragmatic elevation. Unchanged calcified granuloma of the right lateral lung base. Cardiac silhouette is enlarged. Improved pulmonary edema. Bones appear grossly intact. No pneumothorax, pleural effusion or lobar airspace consolidation. IMPRESSION: Cardiomegaly with improved/resolved pulmonary edema. ACT 112: Negative or not required by law. The above report was generated using voice recognition software. It may contain grammatical, syntax or spelling errors. Electronically signed by: Shantanu Ivory M.D. 08/24/2022 8:36 AM Chest CTA 08/24/22 08:49 CT ANGIOGRAM OF THE CHEST CLINICAL HISTORY: Hypoxia COMPARISON STUDY: Chest x-ray dated 08/24/2022. TECHNIQUE: Following the IV administration of 112 cc of Optiray 320, CT angiogram of the chest was performed from the upper abdomen to the thoracic inlet utilizing the pulmonary embolus protocol. Images are reviewed in the axial, sagittal, and coronal planes. 3-D MIPS images are created and assessed. IV contrast was administered without complication. A dose lowering technique was utilized adhering to the principles of ALARA. The examination is significantly degraded by motion artifact. FINDINGS: Thyroid: Imaged portions of the thyroid gland are normal in size and attenuation. Thoracic aorta: The thoracic aorta is normal in caliber and demonstrates standard 3-vessel arch anatomy. No dissection is seen. Pulmonary vasculature: The pulmonary trunk is normal in caliber. There are no f illing defects identified in main, lobar, or segmental pulmonary branches to suggest pulmonary embolus. Evaluation of the peripheral branches is degraded by motion artifact. Heart: The heart is enlarged noting a small pericardial effusion. The coronary arteries are densely calcified. Lungs and pleural spaces: Evaluation of the lung parenchyma significantly degraded by motion artifact. Dependent scarring/atelectasis is seen at both lung bases. No airspace consolidation typical for pneumonia or pleural effusion is identified. There are bilateral calcified granulomas. The trachea and central airways are clear. Mediastinum: There are numerous mildly enlarged mediastinal lymph nodes. These measure up to 10 mm short axis. There are calcified subcarinal nodes. [place]: There are calcifications containing hilar lymph nodes. No hilar adenopathy is identified. Axillae: There is no axillary lymphadenopathy. Upper abdomen: There are calcified splenic granulomas. A hiatal hernia is observed. A 1.6 cm exophytic cyst arises from the upper pole of the right kidney. Skeletal structures: The skeletal structures are osteopenic. No lytic or blastic bony lesions are seen. Advanced degenerative change is seen in the shoulders and thoracic spine. IMPRESSION: 1. Significantly motion compromised examination. 2. There is no evidence of pulmonary embolus in the main, lobar, or segmental pulmonary arteries. 3. There is no airspace consolidation typical for pneumonia or pleural effusion. 4. Cardiomegaly. 5. Numerous mildly enlarged mediastinal lymph nodes are nonspecific and may be reactive. Correlate clinically. 6. Additional findings as above. ACT 112: Negative or not required by law. Electronically signed by: Amanuel Daugherty M.D. 08/24/2022 9:59 AM Discharge Plan Visit Data Chief Complaint: Chest Pain Stated Complaint: CHEST PRESSURE ED Provider: John Block Discharge Problem: Hypoxia, Leukocytosis, Elevated troponin Discharge Instructions Interventions: ED Discharge Assessment Last Done: 08/24/22 13:59
[2022-08-24] MEDS: LACTATED RINGER'S 1,000 ML IV SCH (16:23)
[2022-08-24] MEDS: FINASTERIDE 5 MG TAB PO SCH (16:25)
[2022-08-24] MEDS: ESCITALOPRAM OXALATE 10 MG TAB PO SCH (16:25)
--- NOTE | 2022-08-24 17:02 | XRay Report ---
KUB CLINICAL HISTORY: Vomiting. FINDINGS: 3 AP supine abdominal radiographs are compared to study dated 02/27/2018 and correlated wit h abdominal CT dated 05/02/2011. There is a nonobstructed abdominal bowel gas pattern. Moderate fecal retention is seen throughout the colon. Excreted IV contrast is seen in the collecting systems and bl adder. The skeletal structures are osteopenic and appear intact. There is moderate lumbosacral spondy losis. IMPRESSION: No acute abnormality is identified. Electronically signed by: Amanuel Daugherty M.D. 08/24/2022 5:00 PM
[2022-08-24] MEDS ORDERED: POLYETHYLENE (MIRALAX) 17 GM PACK PO STA (18:00)
[2022-08-24] MEDS: ATORVASTATIN 40 MG TAB PO SCH (20:34)
[2022-08-24] MEDS: POLYETHYLENE (MIRALAX) 17 GM PACK PO SCH (20:34)
[2022-08-24 21:00] LABS: Partial Thromboplastin Ratio 2.1
[2022-08-24 21:02] LABS: Partial Thromboplastin Time 59.2 Seconds (21.0-31.0)
[2022-08-25] MEDS: LACTATED RINGER'S 1,000 ML IV SCH ×2 (01:35→11:12)
[2022-08-25 07:20] LABS: Albumin Level 3.1 gm/dl (3.4-5.0); BUN Creatinine Ratio 29.3 (10-20); Bilirubin,Total 0.9 mg/dl (0.2-1.0); C Reactive Protein 11.89 mg/dl (0-0.5); Calcium 9.1 mg/dl (8.6-10.3); Creatinine Clr Calc Pharmacy 50.3 ml/min; Est GFR (African American) 62.1 ml/min; Est GFR (Non-African American) 53.6 ml/min; Globulin 3.1 gm/dl (2.5-4.0); Potassium 4.1 mmol/L (3.5-5.1); Total Protein 6.2 gm/dl (6.0-8.3)
[2022-08-25 07:22] LABS: Basophils # (auto) 0.02 K/uL (0-0.2); Basophils % (auto) 0.2 %; Eosinophils # (auto) 0.38 K/uL (0-0.50); Eosinophils % (auto) 3.6 %; Hematocrit (blood only) 35.8 % (42.0-52.0); Hemoglobin 12.2 g/dl (14.0-18.0); Immature Granulocytes # (auto) 0.06 K/uL (0.01-0.20); Immature Granulocytes % (auto) 0.6 %; Lymphocytes # (auto) 1.33 K/uL (1.2-3.4); Lymphocytes % (auto) 12.5 %; Mean Corpuscular Hemoglobin 31.4 pg (25.0-34.0); Mean Corpuscular Hgb Conc 34.1 g/dL (32.0-36.0); Mean Platelet Volume 11.2 fL (9.4-12.4); Monocytes # (auto) 0.64 K/uL (0.11-0.59); Neutrophils % (auto) 77.1 %; Platelet Count 182 K/uL (130-400); RDW Coefficient of Variation 14.3 % (11.5-14.5); RDW Standard Deviation 47.8 fL (36.4-46.3); Red Blood Count 3.89 M/uL (4.70-6.10); White Blood Count 10.63 K/ul (4.8-10.8)
[2022-08-25 07:29] LABS: Troponin I High Sensitivity 1777.4 pg/ml (0-20)
[2022-08-25 07:53] LABS: Partial Thromboplastin Time 55.4 Seconds (21.0-31.0)
[2022-08-25] MEDS: FINASTERIDE 5 MG TAB PO SCH (09:44)
[2022-08-25] MEDS: ASPIRIN 81 MG ECTAB PO SCH (09:44)
[2022-08-25] MEDS: ESCITALOPRAM OXALATE 10 MG TAB PO SCH (09:44)
[2022-08-25] MEDS: FAMOTIDINE 20 MG in SYRINGE 3 ML IV SCH (09:49)
[2022-08-25] MEDS: POLYETHYLENE (MIRALAX) 17 GM PACK PO SCH ×2 (11:12→20:24)
[2022-08-25] MEDS: HEPARIN SODIUM/DEXTROSE 25,000 UNITS/500 ML BAG IV SCH (14:48)
[2022-08-25] MEDS ORDERED: FUROSEMIDE 40 MG/4 ML VIAL IV ONE (15:29)
--- NOTE | 2022-08-25 16:13 | Cardiology Progress Note ---
Date of Service August 25, 2022 Assessment & Plan (1) Non-ST elevated myocardial infarction (non-STEMI): (2) Hypertension: (3) Dyslipidemia: (4) Vomiting: (5) Hypoxia: (6) Leukocytosis: Plan ASSESSMENT/PLAN: 1. NSTEMI: No current angina. Was considering cath this afternoon, but ate lunch. Cath not urgent. Discussed risks and benefits of cath and that CT surgery is not available here. He is agreeable to proceed tomorrow. NPO after midnight except meds. Continue Heparin drip. Aspirin 81 mg. No betablocker due to bradycardia. Can resume LEILA I if blood pressure remains stable after some diuresis. Was hypotensive briefly yesterday. High intensity statin therapy. 2. Hypertension: Mostly normotensive today but was intermittently hypotensive yesterday. Can resume LEILA inhibitor if blood pressure remains stable following diuresis. 3. Dyslipidemia: High intensity statin therapy has been initiated during this hospital stay in place of [facility]. 4. Leukocytosis/chills/vomiting: Had UTI in the past 1 to 2 weeks and had been on outpatient antibiotics and has received intermittent antibiotics here including cefepime in the ER. No further chills while here. Blood cultures negative thus far. 5. Hypoxia: He appears hypervolemic. He is receiving IV fluid. Discontinue IV fluid. Lasix 40 mg IV x1 now. Low-sodium diet. Strict I's and O's. Discussed with nursing staff. 6. Chest pain: Has intermittent different chest pain today in the right upper chest which is tender to palpation, suggesting musculoskeletal origin. Patient/ agree that this is different location than the pain prior to presentation. 7. Disposition: Car allergy will continue to follow. Plan of care discussed with nursing staff and Dr. Harp of the primary hospitalist service. Highly complex medical issues. Admission and Anticipated Discharge Date Admission Date: August 24, 2022 Subjective Admits to some orthopnea. He has right upper chest pain intermittently today after laying in bed. He states that this is different than the chest pain that he had prehospital. His agrees as she has recalled prehospital events better than he has. He denies syncope, near syncope, palpitations, edema, or bleeding. He has been receiving IV fluids. His , son, [id number] were present at the bedside. Physical Exam Physical Exam: Gen.: No acute distress. Alert. HEENT: Anicteric sclera. Neck: Mild JVD. + hepatojugular reflux. Cardiac: No ventricular heave. Regular and mildly bradycardic. Normal S1-S2. No murmurs, rubs, or gallops. Pulmonary: Bibasilar rales. Otherwise clear to auscultation bilaterally. Abdomen: Soft, nontender, nondistended, with normoactive bowel sounds. No bruits noted. Extremities: 2+ radial pulses bilaterally. 2+ posterior tibialis pulses bilaterally. No edema or cyanosis. Psychiatric: Affect appears appropriate. Chest: Tender right upper chest. No rash in that area. Results & Data Vital Signs (Past 12 Hours) Vital Signs Temp Pulse Pulse Resp BP Pulse Ox O2 Del Method 08/25/22 16:01 36.4 C L 56 L 20 146/75 H 97 Nasal Cannula 08/25/22 13:01 Nasal Cannula 08/25/22 11:47 36.6 C 78 18 111/68 96 Room Air 08/25/22 10:21 47 L 08/25/22 08:45 36.3 C L 54 L 18 115/62 100 Nasal Cannula O2 Flow Rate 08/25/22 16:01 4 08/25/22 13:01 4 08/25/22 11:47 08/25/22 10:21 08/25/22 08:45 4 Intake & Output 08/23/22 08/24/22 08/25/22 08/26/22 06:59 06:59 06:59 06:59 Intake Total 1200 / 1200 1900.200 / 1900.200 Output Total 375 / 375 Balance 825 / 825 1900.200 / 1900.200 Weight 212 lb 1.355 oz Laboratory Results Laboratory Results - last 24 hr 08/24/22 08/24/22 08/24/22 17:07 19:44 23:18 WBC RBC Hgb Hct MCV MCH MCHC RDW Std Deviation RDW Coeff of Bart Plt Count MPV Immature Gran % (Auto) Neut % (Auto) Lymph % (Auto) [place] % (Auto) Eos % (Auto) Baso % (Auto) Neut # (Auto) Lymph # (Auto) [place] # (Auto) Eos # (Auto) Baso # (Auto) Immature Gran # (Auto) APTT 59.2 H* PTT Ratio 2.1 Sodium Potassium Chloride Carbon Dioxide Anion Gap BUN Creatinine Est Cr Clr Drug Dosing Est GFR ( Amer) Est GFR (Non-Af Amer) BUN/Creatinine Ratio Glucose Calcium Total Bilirubin AST ALT Alkaline Phosphatase Troponin I High Sens 2180.3 H* D 2569.8 H* C-Reactive Protein Total Protein Albumin Globulin Albumin/Globulin Ratio Procalcitonin 08/25/22 08/25/22 08/25/22 06:37 06:37 06:37 WBC 10.63 D RBC 3.89 L Hgb 12.2 L Hct 35.8 L MCV 92.0 MCH 31.4 MCHC 34.1 RDW Std Deviation 47.8 H RDW Coeff of Bart 14.3 Plt Count 182 MPV 11.2 Immature Gran % (Auto) 0.6 Neut % (Auto) 77.1 Lymph % (Auto) 12.5 [place] % (Auto) 6.0 Eos % (Auto) 3.6 Baso % (Auto) 0.2 Neut # (Auto) 8.20 H Lymph # (Auto) 1.33 [place] # (Auto) 0.64 H Eos # (Auto) 0.38 Baso # (Auto) 0.02 Immature Gran # (Auto) 0.06 APTT PTT Ratio Sodium 138 Potassium 4.1 Chloride 103 Carbon Dioxide 29 Anion Gap 6 BUN 36 H Creatinine 1.23 Est Cr Clr Drug Dosing 50.3 Est GFR ( Amer) 62.1 Est GFR (Non-Af Amer) 53.6 BUN/Creatinine Ratio 29.3 H Glucose 125 H Calcium 9.1 Total Bilirubin 0.9 D AST 39 ALT 37 Alkaline Phosphatase 53 Troponin I High Sens 1777.4 H* D C-Reactive Protein 11.89 H Total Protein 6.2 Albumin 3.1 L Globulin 3.1 Albumin/Globulin Ratio 1.0 Procalcitonin 3.19 H 08/25/22 08/25/22 06:37 10:53 WBC RBC Hgb Hct MCV MCH MCHC RDW Std Deviation RDW Coeff of Bart Plt Count MPV Immature Gran % (Auto) Neut % (Auto) Lymph % (Auto) [place] % (Auto) Eos % (Auto) Baso % (Auto) Neut # (Auto) Lymph # (Auto) [place] # (Auto) Eos # (Auto) Baso # (Auto) Immature Gran # (Auto) APTT 55.4 H* PTT Ratio 2.0 Sodium Potassium Chloride Carbon Dioxide Anion Gap BUN Creatinine Est Cr Clr Drug Dosing Est GFR ( Amer) Est GFR (Non-Af Amer) BUN/Creatinine Ratio Glucose Calcium Total Bilirubin AST ALT Alkaline Phosphatase Troponin I High Sens 1547.7 H* C-Reactive Protein Total Protein Albumin Globulin Albumin/Globulin Ratio Procalcitonin Diagnostic Findings Telemetry personally reviewed: Sinus bradycardia. No arrhythmia. Labs notable for peak high-sensitivity troponin of 2569. Stable renal function, normal WBC, mild anemia. Medications Administered Current Inpatient Medications Aspirin (Aspirin 81 Mg Ectab) 81 mg PO QAM [facility] Stop: 09/24/22 08:59 Last Admin: 08/25/22 09:44 Dose: 81 mg Atorvastatin Calcium (Atorvastatin 40 Mg Tab) 40 mg PO HS [facility] Stop: 09/23/22 20:59 Last Admin: 08/24/22 20:34 Dose: 40 mg Escitalopram Oxalate (Escitalopram Oxalate 10 Mg Tab) 10 mg PO DAILY [facility] Stop: 09/23/22 13:57 Last Admin: 08/25/22 09:44 Dose: 10 mg Finasteride (Finasteride 5 Mg Tab) 5 mg PO DAILY [facility] Stop: 09/23/22 13:57 Last Admin: 08/25/22 09:44 Dose: 5 mg Heparin Sodium/Dextrose (Heparin Sodium/Dextrose) 25,000 units in 500 mls @ 19 mls/hr IV .Q24H [facility]; Protocol Stop: 09/23/22 12:14 Last Admin: 08/25/22 14:48 Dose: 950 units/hr, 19 mls/hr Famotidine 20 mg/ Syringe 5 mls @ 2.5 mls/min IV QAM [facility] Stop: 09/24/22 08:59 Last Admin: 08/25/22 09:49 Dose: 2.5 mls/min Nitroglycerin (Nitroglycerin Sl 0.4 Mg/Tab Tab) 0.4 mg SL Q5M PRN PRN Reason: Chest Pain Stop: 09/23/22 13:57 Polyethylene Glycol (Polyethylene (Miralax) 17 Gm Pack) 17 gm PO BID [facility] Stop: 09/23/22 20:59 Last Admin: 08/25/22 11:12 Dose: 17 gm PG Care Time/CCT Total # of Minutes Spent Total Time Spent with Patient: Total time spent is greater than 50% in coordination of care (as documented) at patient's floor/unit and/or counseling patient: Coding Level of Care Code 35511 SUB INP/OBS CARE 3/50MIN Diagnoses Non-ST elevated myocardial infarction (non-STEMI) I21.4 Hypertension I10 Dyslipidemia E78.5 Vomiting R11.10 Hypoxia R09.02 Leukocytosis D72.829
[2022-08-25] MEDS: ATORVASTATIN 40 MG TAB PO SCH (20:24)
--- NOTE | 2022-08-25 22:44 | Hospitalist Progress Note ---
Date of Service August 25, 2022 Assessment & Plan (1) Non-ST elevated myocardial infarction (non-STEMI): Plan: Trend troponin. If significant increase will consult cardiology to consider cardiac catheterization and start IV heparin. If decreasing (continuing from last admission) will treat for constipation (most likely other cause of vomiting) and consider myocardial perfusion scan. TTE to assess for new wall motion abnormalities which would also warrant direct to catheterization ?enlarging pericardial effusion. ASA 324mg PO given en route to hospital, continue aspirin 81mg PO QAM BB deferred last admission due to bradycardia, tachycardia currently but will defer this to cardiology holding for now, may consider starting luz marina inhibitor on 08/26 LDL 137 in July - will defer statin management to cardiology HbA1C 6.1 in July - no current medications for this, could consider metformin on discharge for pre-diabetes Patient required diuretics to due iatrogenic fluid overload. Will reconsider diuretics on 08/26 Plan for cath on 08/26 (2) Leukocytosis: Plan: Suspect this is reactive to his vomiting No source of infection from imaging, history or lab work. CRP is downtrending. Main concern is procalcitonin is elevated and no blood cultures taken last admission. Blood cultures taken in ER, will follow up. Workup for tick borne diseases if warranted given chills last admission but low suspicion this is driving his leukocytosis Biofire PCR added One dose of cefepime given in the ER however given lack of source will defer ongoing treatment Trend WBC and procalcitonin. Unless emergent would suggest catheterization only after blood cultures negative at 48 hours and procalcitonin downtrending. WBC downtrending on 08/25, patient does not appear to be septic, will monitor. Procal did go up but clinical picture does not point towards sepsis or infection at this time (3) Hypoxia: Plan: Unclear cause on admission ?mild aspiration pneumonitis without current imaging changes - incentive spirometer TTE to assess for cardiac cause Continue to monitor Aim O2 sats > 94 % in setting of possible acute coronary syndrome Patient did appear wet on 08/25, ordered diuretics and stopped IVF (4) Hypertension: Plan: Suspect mild hypotension in the ER due to nitroglycerin doses Continue to monitor off with holding his lisinopril (5) Vomiting: Plan: No abdominal pain to warrant imaging at this time. Can consider if recurrent. Use ondansetron as needed ?due to constipation - will start MiraLAX pending ongoing workup for NSTEMI as above ?related to NSTEMI although did not occur with chest pain (6) Chronic reflux esophagitis: Plan: Possible cause of chest pain as above Famotidine 20mg IV now If troponin downtrending suspect due to this with his vomiting Plan VTE Prophylaxis - deferred pending repeat troponin Diet - NPO pending repeat troponin Disposition - admit to PCU Admission and Anticipated Discharge Date Admission Date: August 24, 2022 Subjective Patient appears more comfortable after reciving lasix earlier in the day. Review of Systems Review of Systems: All systems reviewed & are unremarkable except as noted in HPI & below Physical Exam Physical Exam: Constitutional: WD/WN, vitals as above Eyes: + anicteric sclerae; normal pupil size ENMT: external ear and nose normal, oropharynx normal Neck: trachea midline, no thyromegaly Respiratory: bibasilar rales Cardiovascular: RRR, no murmur, no edema Gastrointestinal (Abdomen): normal bowel sounds, soft, nontender, no hepatosplenomegaly Musculoskeletal: no cyanosis or clubbing, extremities motor strength 5/5 Skin: no rashes, warm and dry Neurologic: moves all extremities and awake; not confused Psychiatric: A+Ox3, euthymic affect Results & Data Results & Data Vital Signs (Past 12 Hours) Vital Signs Temp Pulse Resp BP Pulse Ox O2 Del Method O2 Flow Rate 08/25/22 20:25 Nasal Cannula 2 08/25/22 19:00 36.3 C L 54 L 19 143/76 H Nasal Cannula 4 08/25/22 16:01 36.4 C L 56 L 20 146/75 H 97 Nasal Cannula 4 08/25/22 13:01 Nasal Cannula 4 08/25/22 11:47 36.6 C 78 18 111/68 96 Room Air PG Care Time/CCT Total # of Minutes Spent Total Time Spent with Patient: Total time spent is greater than 50% in coordination of care (as documented) at patient's floor/unit and/or counseling patient: Coding Level of Care Code 86671 SUB INP/OBS CARE 2/35MIN Diagnoses Non-ST elevated myocardial infarction (non-STEMI) I21.4 Leukocytosis D72.829 Hypoxia R09.02 Hypertension I10 Vomiting R11.10 Chronic reflux esophagitis K21.0
--- NOTE | 2022-08-26 05:42 | Electrocardiogram Report ---
Test Reason : Blood Pressure : / mmHG Vent. Rate : 114 BPM Atrial Rate : 114 BPM P-R Int : 112 ms QRS Dur : 092 ms QT Int : 348 ms P-R-T Axes : 007 -22 067 degrees QTc Int : 479 ms Sinus tachycardia with Premature supraventricular complexes and Premature ventricular complexes or Fu alyse complexes Nonspecific ST abnormality Abnormal ECG When compared with ECG of 22-AUG-2022 06:56, Fusion complexes are now Present Premature ventricular complexes are now Present Premature supraventricular complexes are now Present Vent. rate has increased BY 63 BPM Confirmed by Corbin Morrow ([id number]) on 08/26/2022 5:41:46 AM Referred By: REFERRED SELF Confirmed By:Corbin Morrow
[2022-08-26 07:15] LABS: Partial Thromboplastin Ratio 1.7
[2022-08-26 07:20] LABS: Partial Thromboplastin Time 49.1 Seconds (21.0-31.0)
[2022-08-26 08:11] LABS: Calcium 9.1 mg/dl (8.6-10.3); Potassium 3.9 mmol/L (3.5-5.1)
[2022-08-26 08:17] LABS: BUN Creatinine Ratio 29.8 (10-20); Creatinine Clr Calc Pharmacy 50.8 ml/min; Est GFR (African American) 63.3 ml/min; Est GFR (Non-African American) 54.6 ml/min
[2022-08-26] MEDS: ASPIRIN 81 MG ECTAB PO SCH (08:37)
[2022-08-26] MEDS: POLYETHYLENE (MIRALAX) 17 GM PACK PO SCH ×2 (08:37→20:28)
[2022-08-26] MEDS: ESCITALOPRAM OXALATE 10 MG TAB PO SCH (08:37)
[2022-08-26] MEDS: FINASTERIDE 5 MG TAB PO SCH (08:37)
[2022-08-26] MEDS: FAMOTIDINE 20 MG in SYRINGE 3 ML IV SCH (08:37)
--- NOTE | 2022-08-26 09:11 | Hospitalist Progress Note ---
Date of Service August 26, 2022 Assessment & Plan (1) Non-ST elevated myocardial infarction (non-STEMI): Plan: continue IV heparin and medical management ASA 324mg PO given en route to hospital, continue aspirin 81mg PO QAM BB deferred last admission due to bradycardia, HbA1C 6.1 in July - no current medications for this, could consider metformin on discharge for pre-diabetes Elevated troponin secondary to nstemi Plan for cath on 08/26 (2) Hypoxia: Plan: acute hypoxia secondary to adenovirus on pcr biofire, could be also cause of leukocytosis tic born illness, Q fever workup pending but initially negative (3) Hypertension: Plan: holding his lisinopril, due to low bp in ER, given inferior changes on Echo maybe RV issue that will be volume dependent (4) Chronic reflux esophagitis: Plan: Famotidine 20mg IV now Plan VTE Prophylaxis - iv heparin Diet - NPO pending repeat troponin Disposition - admit to PCU Admission and Anticipated Discharge Date Admission Date: August 24, 2022 Results & Data Results & Data Vital Signs (Past 12 Hours) Vital Signs Temp Pulse Pulse Resp BP Pulse Ox O2 Del Method 08/26/22 07:58 97.5 F L 51 L 20 112/64 98 Room Air 08/26/22 03:59 98.1 F 54 L 18 130/80 97 Nasal Cannula 08/25/22 23:00 50 L 08/25/22 23:00 97.7 F 54 L 18 133/70 98 Nasal Cannula O2 Flow Rate 08/26/22 07:58 08/26/22 03:59 08/25/22 23:00 08/25/22 23:00 4 PG Care Time/CCT Total # of Minutes Spent Total Time Spent with Patient: Total time spent is greater than 50% in coordination of care (as documented) at patient's floor/unit and/or counseling patient: Coding Diagnoses Non-ST elevated myocardial infarction (non-STEMI) I21.4 Hypoxia R09.02 Hypertension I10 Chronic reflux esophagitis K21.0
[2022-08-26] MEDS: HEPARIN SODIUM/DEXTROSE 25,000 UNITS/500 ML BAG IV SCH ×2 (14:05→18:41)
[2022-08-26] MEDS ORDERED: HEPARIN (PORCINE) 1000 UNIT/ML 10 ML (CATH LAB USE ONLY) ONE (14:29)
[2022-08-26] MEDS ORDERED: niCARdipine HCL INJ 2.5 MG/ML 10 ML AMP ONE (14:29)
[2022-08-26] MEDS ORDERED: fentaNYL citrate PF 100 MCG/2 ML VIAL ONE (14:30)
[2022-08-26] MEDS ORDERED: MIDAZOLAM HCL 1 MG/ML 2ML VIAL ONE (14:30)
[2022-08-26] MEDS ORDERED: NITROGLYCERIN/D5W 100MCG/ML 20ML SYR ONE (14:31)
--- NOTE | 2022-08-26 14:36 | Pre Anesthesia Assessment ---
Date of Service August 26, 2022 Pre Sedation Assessment Vital Signs Temp Pulse Pulse Resp BP Pulse Ox O2 Del Method 08/26/22 14:23 52 L 18 155/82 H 95 Room Air 08/26/22 11:14 36.5 C 53 L 19 151/78 H 99 Room Air 08/26/22 08:30 Nasal Cannula 08/26/22 06:05 48 L 08/26/22 07:58 36.4 C L 51 L 20 112/64 98 Room Air 08/26/22 03:59 36.7 C 54 L 18 130/80 97 Nasal Cannula 08/25/22 23:00 50 L 08/25/22 23:00 36.5 C 54 L 18 133/70 98 Nasal Cannula 08/25/22 20:25 Nasal Cannula 08/25/22 19:00 36.3 C L 54 L 19 143/76 H Nasal Cannula 08/25/22 16:01 36.4 C L 56 L 20 146/75 H 97 Nasal Cannula O2 Flow Rate 08/26/22 14:23 08/26/22 11:14 08/26/22 08:30 2 08/26/22 06:05 08/26/22 07:58 08/26/22 03:59 08/25/22 23:00 08/25/22 23:00 4 08/25/22 20:25 2 08/25/22 19:00 4 08/25/22 16:01 4 Cardiovascular + bradycardic Respiratory normal respiratory effort, lungs clear to auscultation Pre-Sedation Airway Assessment Smoking Status: Never smoker Hx Sleep Apnea: No Short, Thick Neck: No Thyromental Distance: > or= 3.5 Finger Breadths Oral Cavity: + WNL Mallampati Class: II ASA: ASA3 NPO Status Date of Last Intake of Fluids: 08/25/22 Time of Last Intake of Fluids: 20:00 Date of Last Intake of Solid Food: 08/25/22 Time of Last Intake of Solid Foods: 20:00 Procedure Planning Contraindications for Sedation: none Current Medications Reviewed: Yes Notes The planned sedation has been discussed with the patient. Informed Consent was obtained. I have identified the patient, determined the appropriateness of sedation and have assessed the patient immediately prior to the procedure. All medicine(s) and interventions are by my order.
--- NOTE | 2022-08-26 15:37 | Post Anesthesia Assessment ---
Date of Service August 26, 2022 Post Sedation Assessment Vital Signs Temp Pulse Pulse Resp BP Pulse Ox O2 Del Method 08/26/22 15:20 56 L 20 151/70 H 92 Room Air 08/26/22 14:05 48 L 08/26/22 14:23 52 L 18 155/82 H 95 Room Air 08/26/22 11:14 36.5 C 53 L 19 151/78 H 99 Room Air 08/26/22 08:30 Nasal Cannula 08/26/22 06:05 48 L 08/26/22 07:58 36.4 C L 51 L 20 112/64 98 Room Air 08/26/22 03:59 36.7 C 54 L 18 130/80 97 Nasal Cannula 08/25/22 23:00 50 L 08/25/22 23:00 36.5 C 54 L 18 133/70 98 Nasal Cannula 08/25/22 20:25 Nasal Cannula 08/25/22 19:00 36.3 C L 54 L 19 143/76 H Nasal Cannula 08/25/22 16:01 36.4 C L 56 L 20 146/75 H 97 Nasal Cannula O2 Flow Rate 08/26/22 15:20 08/26/22 14:05 08/26/22 14:23 08/26/22 11:14 08/26/22 08:30 2 08/26/22 06:05 08/26/22 07:58 08/26/22 03:59 08/25/22 23:00 08/25/22 23:00 4 08/25/22 20:25 2 08/25/22 19:00 4 08/25/22 16:01 4 Recovery Score Activity: Moves 4 extremities Respiration: Deep Breath/Cough Circulation: +/-20% PreAnes Value Consciousness: Fully Awake Oxygen Saturation: > 92% On Room Air Post Anesthesia Score: 10 Discharge Sedation Level of Care: Fast Track Phase II Post Sedation Plan On clinical assessment, the patient appears to have tolerated the sedation without complications. Patient is recovering as anticipated. Patient will continue to be monitored by nursing and may be discharged when sedation discharge criteria are met per below protocol. Upon Completions of procedure up to 15 minutes continue every 5 minute vital signs and the P.A.R. score; then discharge to a Phase I or Fast Track to Phase II per the following guidelines: * Discharge Patient to appropriate Phase II area if PAR is 8 or greater or return to pre- procedure baseline. The post - procedure orders will be as directed. * If PAR score is less than 8 or not return to pre-procedure baseline then patient will follow Phase I monitoring till PAR is reached for Phase II. The Phase I may be done in procedure room or may call to secure a Phase I area. * If naloxone or flumazenil are used for reversal, hold in Phase I for continued monitoring from when last reversal dose was given for a minimum of 60 minutes or longer pending the nurse and/or physician discretion of patient condition before discharge to Phase II. Please call the Sedation Physician to re-evaluate and complete post-note for discharge to Phase II area. Do NOT discharge from procedure sedation or Phase 1 until post- sedation evaluation note is complete by procedure /sedation MD Sedation Discharge Instructions to be given to the patient at discharge to home.
--- NOTE | 2022-08-26 15:39 | Post Operative Brief Note ---
Cardiology Brief Post Op Date of Surgery August 26, 2022 Pre & Post Diagnosis Operation Date: 08/26/22 12:00 <No data on this case meets the specified criteria> Procedure Cath Director Trade Corbin Morrow MD Dispatch Associate [place] Estimated Blood Loss 20 Findings See Below Severe multivessel CAD. Consider CABG. Full report to follow.
--- NOTE | 2022-08-26 16:02 | Cardiac Catheterization ---
[facility] Data: Cafeteria Aide Cardiac Status Clinical evaluation leading to the procedure CAD Presenation: Non STEMI Anginal Classification: CCS IV Heart Failure: No Cardiogenic Shock within 24 Hours: No Cardiac Arrest within 24 Hours: No Imaging Studies Past 6 Months: Yes Stress Studies Past 6 Months: No Coronary Anatomy Dominant: Right Diagnostic Physicians Name: oCrbin Morrow MD Status: Elective Closure Device Percutaneous Entry Location: Radial Closure Device: Radial Band Recommendations: CABG Cardiac Cath Procedure Full Procedure Date August 26, 2022 Pre-Procedure Diagnosis Pre-Procedure Diagnosis: Non STEMI AUC Score AUC Score: 9 Post-Procedure Diagnosis Post-Procedure Diagnosis: Severe CAD Procedure(s) Performed Procedure(s) Performed: Coronary Angiography and Left Heart Cath Gravel Screener Corbin Morrow MD Drawer Upfitter(s) [place] Estimated Blood Loss Estimated Blood Loss: < 20 ml Medication(s) Medication(s): Fentanyl, Heparin, Lidocaine 1%, Nicardipine and Versed Summary of Findings Procedures: 1. Coronary angiography 2. Left heart catheterization 3. Moderate sedation Indication: 82-year-old gentleman with recurrent chest discomfort and NSTEMI with LAD wall motion abnormality on echo. Also has history of hypertension and dyslipidemia. Coronary angiography: 1. Left main: Mid 20%. 2. Left anterior descending: Calcifications noted within the proximal and mid LAD. Proximal LAD 30 to 40%. Late proximal LAD 70 to 80% at bifurcation of septal software development engineer. Mid LAD subtotal occlusion with very little antegrade flow. 3. Circumflex: Mid circumflex 80%. Distal circumflex 70%. Large OM1 with ostial to proximal 90%. Large OM 2 proximal 90 to 95%. OCTAVIO-3 flow. 4. Right coronary artery: RCA is large and dominant, with calcifications. RCA is diffusely diseased. Proximal RCA 80 to 90%. Mid RCA 50%. Distal RCA 80 to 90% with calcium burden. Large PDA proximal 80%. PL without significant CAD. Right to left collaterals. Left heart catheterization: 1. Left ventriculography was not performed. 2. No significant aortic stenosis. Peak to peak gradient across the aortic valve was 0. 3. Moderately elevated LVEDP; 20 mmHg. Moderate sedation: 1. Sedation start time: 2:49 PM 2. Sedation end time: 3:07 PM Impression: 1. Severe multivessel CAD, including subtotal mid LAD, and otherwise severe CAD of circumflex, large OM1, large OM 2, RCA, and PDA. 2. Right to left collaterals and minimal left to left collaterals. 3. Elevated LVEDP. 4. No aortic stenosis. Plan: 1. Recommend transfer to CT surgery capable center to evaluate for CABG. 2. Risk factor modification. 3. Continue heparin drip. Hemodynamics Rest Ao:: 151/67 Final Ao: 152/67 LV: LVEDP 20 Recommendations Recommendations: CABG Specimens Specimens: None Radiation Exposure (mGy) 1154 mGy. Fluoro time 3.4 min. Contrast (mls) 70 ml Procedural Complication(s) None Disposition PCU I attest to the content of the Intraoperative Record and any orders documented therein. Any exceptions are noted below. [facility] Card Cath Procedure Codes Cardiac Catheterization Procedure 1: Cardiovascular Cath Procedures: 32086 Coronaries and LHC (+/-LV) Moderate Sedation Procedure 1: Sedation/Anesthesia: 31604 Mod Sedation by the same physician;Init15 Min Child Age 5 & Up Procedure 2: Sedation/Anesthesia: 90554 Mod Sedation by the same physician; Ea [id number] Minutes PG Care Time/CCT Total # of Minutes Spent Total Time Spent with Patient: Total time spent is greater than 50% in coordination of care (as documented) at patient's floor/unit and/or counseling patient:
[2022-08-26] MEDS ORDERED: ONDANSETRON INJ 2 MG/ML 2 ML VIAL IV PRN (16:07)
[2022-08-26] MEDS ORDERED: ONDANSETRON INJ 2 MG/ML 2 ML VIAL IV ONE (16:07)
--- NOTE | 2022-08-26 16:16 | Cardiology Progress Note ---
Date of Service August 26, 2022 Assessment & Plan (1) Non-ST elevated myocardial infarction (non-STEMI): (2) Hypertension: (3) Dyslipidemia: (4) Vomiting: (5) Hypoxia: (6) Leukocytosis: (7) CAD (coronary artery disease): Plan ASSESSMENT/PLAN: 1. CAD: Severe multivessel CAD including subtotal LAD with right to left collaterals and minimal left to left collaterals. No further angina. Would resume heparin drip after hemostasis achieved from right radial cath site. Recommend CABG evaluation. Called [facility], Dr. Barry, who was happy to accept him in transfer. Recommend heparin drip on transfer. Continue aspirin. Continue high intensity statin therapy. No beta-jourdan due to resting bradycardia. Consider LEILA inhibitor after CABG. 2. NSTEMI: No further angina. Continue heparin drip as above. 3. Dyslipidemia: High intensity statin therapy was initiated during this hospital stay. He chronically had been on Zetia. 4. Hypertension: Blood pressure was reasonably controlled until this afternoon. Unclear if this is related to anxiety from the cath. If remains elevated, recommend LEILA inhibitor. No major change currently though, given anticipated CABG soon. 5. Disposition: Recommended transfer to CT surgery capable center. Patient and his family were present for the discussion and they were all in agreement to be transferred to [facility]. Dr. Barry of CT surgery accepted him for transfer. Echo images and cath images were scanned on disc to accompany the patient. Dr. Beauchamp was contacted to inform him of transfer. Appreciate his assistance. Highly complex medical issues. Admission and Anticipated Discharge Date Admission Date: August 24, 2022 Subjective No further chest pain. Denies syncope, near syncope, palpitations, or bleeding. Was given IV Lasix yesterday and diuresed. No longer short of breath. Denies orthopnea. Underwent cardiac catheterization this afternoon. Severe multivessel CAD was noted including subtotal mid LAD. After discussion, he is willing to consider CABG evaluation. Physical Exam Physical Exam: Gen.: No acute distress. Alert. HEENT: Anicteric sclera. Neck: No JVD. Cardiac: No ventricular heave. Regular and mildly bradycardic. Normal S1-S2. No murmurs, rubs, or gallops. Pulmonary: Mild rales at the right base, but otherwise clear to auscultation bilaterally. (improved) Abdomen: Soft, nontender, nondistended, with normoactive bowel sounds. No bruits noted. Extremities: 2+ radial pulses bilaterally. 2+ posterior tibialis pulses bilaterally. No edema or cyanosis. Psychiatric: Affect appears appropriate. Results & Data Vital Signs (Past 12 Hours) Vital Signs Temp Pulse Pulse Resp BP BP Pulse Ox 08/26/22 15:39 52 L 18 154/76 H 92 08/26/22 15:35 52 L 20 148/82 H 92 08/26/22 15:20 56 L 20 151/70 H 92 08/26/22 14:05 48 L 08/26/22 14:23 52 L 18 155/82 H 95 08/26/22 11:14 36.5 C 53 L 19 151/78 H 99 08/26/22 08:30 08/26/22 06:05 48 L 08/26/22 07:58 36.4 C L 51 L 20 112/64 98 O2 Del Method O2 Flow Rate 08/26/22 15:39 Room Air 08/26/22 15:35 Room Air 08/26/22 15:20 Room Air 08/26/22 14:05 08/26/22 14:23 Room Air 08/26/22 11:14 Room Air 08/26/22 08:30 Nasal Cannula 2 08/26/22 06:05 08/26/22 07:58 Room Air Intake & Output 08/24/22 08/25/22 08/26/22 08/27/22 06:59 06:59 06:59 06:59 Intake Total 1200 / 1200 1900.200 / 1900.200 321.733 / 321.733 Output Total 375 / 375 2300 / 2300 375 / 375 Balance 825 / 825 -399.800 / -399.800 -53.267 / -53.267 Weight 212 lb 1.355 oz 209 lb 7.026 oz Laboratory Results Laboratory Results - last 24 hr 08/26/22 08/26/22 08/26/22 05:43 05:43 14:54 APTT 49.1 H* PTT Ratio 1.7 Activ Coag Time Kaolin 155 H Sodium 138 Potassium 3.9 Chloride 100 Carbon Dioxide 31 Anion Gap 7 BUN 36 H Creatinine 1.21 Est Cr Clr Drug Dosing 50.8 Est GFR ( Amer) 63.3 Est GFR (Non-Af Amer) 54.6 BUN/Creatinine Ratio 29.8 H Glucose 102 H Calcium 9.1 Diagnostic Findings Telemetry personally reviewed: Sinus bradycardia. Cardiac catheterization 08/26/2022: Coronary angiography: 1. Left main: Mid 20%. 2. Left anterior descending: Calcifications noted within the proximal and mid LAD. Proximal LAD 30 to 40%. 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 Mid LAD subtotal occlusion with very little antegrade flow. 3. Circumflex: Mid circumflex 80%. Distal circumflex 70%. Large OM1 with ostial to proximal 90%. Large OM 2 proximal 90 to 95%. OCTAVIO-3 flow. 4. Right coronary artery: RCA is large and dominant, with calcifications. RCA is diffusely diseased. Proximal RCA 80 to 90%. Mid RCA 50%. Distal RCA 80 to 90% with calcium burden. Large PDA proximal 80%. PL without significant CAD. Right to left collaterals. Left heart catheterization: 1. Left ventriculography was not performed. 2. No significant aortic stenosis. Peak to peak gradient across the aortic valve was 0. 3. Moderately elevated LVEDP; 20 mmHg. Medications Administered Current Inpatient Medications Aspirin (Aspirin 81 Mg Ectab) [facility] Stop: 09/24/22 08:59 Last Admin: 08/26/22 08:37 Dose: 81 mg Atorvastatin Calcium (Atorvastatin 40 Mg Tab) 40 mg PO HS [facility] Stop: 09/23/22 20:59 Last Admin: 08/25/22 20:24 Dose: 40 mg Escitalopram Oxalate (Escitalopram Oxalate 10 Mg Tab) 10 mg PO DAILY [facility] Stop: 09/23/22 13:57 Last Admin: 08/26/22 08:37 Dose: 10 mg Finasteride (Finasteride 5 Mg Tab) 5 mg PO DAILY [facility] Stop: 09/23/22 13:57 Last Admin: 08/26/22 08:37 Dose: 5 mg Heparin Sodium/Dextrose (Heparin Sodium/Dextrose) 25,000 units in 500 mls @ 19 mls/hr IV .Q24H [facility]; Protocol Stop: 09/23/22 12:14 Last Admin: 08/26/22 14:05 Dose: Not Given Famotidine 20 mg/ Syringe 5 mls @ 2.5 mls/min [facility] Stop: 09/24/22 08:59 Last Admin: 08/26/22 08:37 Dose: 2.5 mls/min Nitroglycerin (Nitroglycerin Sl 0.4 Mg/Tab Tab) 0.4 mg SL Q5M PRN PRN Reason: Chest Pain Stop: 09/23/22 13:57 Ondansetron HCl (Ondansetron Inj 2 Mg/Ml 2 Ml Vial) 4 mg IV Q4H PRN PRN Reason: Nausea Stop: 09/25/22 16:06 Polyethylene Glycol (Polyethylene (Miralax) 17 Gm Pack) 17 gm PO BID [facility] Stop: 09/23/22 20:59 Last Admin: 08/26/22 08:37 Dose: Not Given PG Care Time/CCT Total # of Minutes Spent Total Time Spent with Patient: Total time spent is greater than 50% in coordination of care (as documented) at patient's floor/unit and/or counseling patient: Coding Level of Care Code 66046 SUB INP/OBS CARE 3/50MIN Diagnoses Non-ST elevated myocardial infarction (non-STEMI) I21.4 Hypertension I10 Dyslipidemia E78.5 Vomiting R11.10 Hypoxia R09.02 Leukocytosis D72.829 CAD (coronary artery disease) I25.10
[2022-08-26 16:21] LABS: Babesia microti DNA Not Detected (Not Detected)
--- NOTE | 2022-08-26 16:30 | Discharge Summary ---
Date of Service August 26, 2022 Admission HPI Per Admitting Provider Francisco Javier Rangel is an 82 year old male who presents to the ER via EMS with chest pain and vomiting. He was recently admitted to [facility] from August 20 - 2022 due to fatigue, restlessness and vomited after taking an Advil. High sensitivity troponin was elevated but downtrending. His symptoms appeared to fit better with infection although none was found and he was discharged yesterday with plan for outpatient myocardial perfusion scan on . He reports feeling fine on discharge. However, around midnight last night he started having vomiting episode. Occurred hours after his last meal. No odyno phagia or dysphagia. He denies any abdominal pain, melena or bright red blood in stool. He reports not having a bowel movement in many days but does not feel constipated. This morning he had chest pain that started at 6:30am, lasted for 1 hour, worse on exertion, improved with nitroglycerin given in the ambulance, constant substernal without radiation, severity 7/10. He is currently chest pain free in the emergency room. EMS gave 324mg aspirin and 2 nitroglycerin tabs. Principal Diagnosis NSTEMI, cardiac catheter three-vessel coronary disease recommendation for revascularization evaluation [facility]. Arrangements made with Dr. Morrow for accepting physician of Dr. Barry CT surgery [place] Discharge Exam Patient was seen pre and postprocedure he is doing well currently chest pain- free cardiology recommends transfer on heparin drip Discharge Data Allergies Allergy/AdvReac Type Severity Reaction Status Date / Time ragweed pollen Allergy Unknown Verified 08/24/22 11:13 Tetracyclines Allergy Unknown Verified 08/24/22 11:13 Consultations 08/24/22 11:09 Consult Cardiology Routine 08/24/22 11:17 ED Decision to Admit Stat Procedures Performed Operation Date: 08/26/22 12:00 Actual Procedures s Cineradiography w/Routine Exam - Corbin Morrow MD p Cath, Left with Cors and Vent - Ortiz Du MD Ordered Studies 08/24/22 08:49 CT angio chest PE protocol Stat 08/26/22 06:34 CL Cath Imgs for PACS use only Routine Hospital Course (1) Non-ST elevated myocardial infarction (non-STEMI): continue IV heparin transfer to tertiary care center for evaluation for revascularization ASA 324mg PO given en route to hospital, continue aspirin 81mg PO QAM BB deferred last admission due to bradycardia, HbA1C 6.1 in July - no current medications for this, could consider metformin on discharge for pre-diabetes Elevated troponin secondary to nstemi Cardiac catheterization revealed a left main of 20% left anterior descending calcified with 30 to 40% proximal but 70 to 80% at the bifurcation, subtotal occlusion of LAD with little antegrade flow 80% mid circumflex 70% distal circumflex lobe large obtuse marginal 1 with ostial to proximal 90% occlusion large OM 2 proximal 90 to 95% occlusion Right coronary artery was large and dominant with calcifications diffusely diseased with proximal 80 to 90% occlusion, 50% mid RCA occlusion, distal 80 to 90% RCA occlusion with calcium burden large PDA with an 80% proximal occlusion Echocardiogram preprocedure revealed preserved ejection fraction with severely hypokinetic to akinetic apex (2) Hypoxia: acute hypoxia secondary to adenovirus on pcr biofire, could be also cause of leukocytosis tic born illness, Q fever workup pending but initially negative CTA of the chest is without PE or airspace consolidation for pneumonia or pleural effusion possible reactive lymph nodes (3) Hypertension: holding his lisinopril, due to low bp in ER, given inferior changes on Echo maybe RV issue that will be volume dependent (4) Chronic reflux esophagitis: Famotidine 20mg IV now Plan VTE Prophylaxis - iv heparin Diet - NPO pending repeat troponin Disposition - admit to PCU Total Time Total Time Spent Total Time Spent (In Minutes): It required greater than 30 minutes to prepare this patient for discharge Discharge Plan Discharge Items Patient Disposition: Transfer Acute Care Hospital Reason For Visit: NSTEMI, HYPOXIA Discharge Diagnosis: nstemi, 3 vessel cad on cath Activity: Per Instructions section Activity Comment: as per post intervention instructions Non-emergency contact: Property Maintenance Technician Call non-emergency contact if: your symptoms worsen Follow-up/Referrals: Teodoro Hooks, [Primary Care Provider] - Diet: Heart Healthy Addtl Attending Provider Instructions: please follow post discharge instructions from [facility] Pending Studies at Discharge: No Stand-Alone Forms: My [facility] Skilled Items Patient informed of condition?: Yes DNR: No Discharge Level of Care: Other Communicable Disease: No Discharge Prognosis: Stable Lines: None Urinary Catheter: No Medications and DC Order Prescriptions: New atorvastatin 40 mg Tablet 40 mg PO HS Qty: 30 0RF aspirin 81 mg Tablet,Delayed Release (Dr/Ec) 81 mg PO QAM Qty: 30 0RF Continued finasteride 5 mg tablet 5 mg PO DAILY Qty: 90 3RF diclofenac sodium 1 % gel 2 g topical QID PRN (Reason: pain, moderate) Qty: 100 5RF escitalopram oxalate [Lexapro] 10 mg tablet 10 mg PO DAILY Qty: 90 1RF PreserVision AREDS [id number] capsule 1 cap PO BID desonide 0.05 % ointment 1 applic topical BID Qty: 15 0RF Rx Instructions: Apply sparingly to areas of the face twice daily as needed. Discontinued lisinopril 10 mg tablet See Rx Instructions .ROUTE .COMPLEX Qty: 90 3RF Dose Instruction: TAKE 1 TABLET BY MOUTH DAILY Rx Instructions: TAKE 1 TABLET BY MOUTH DAILY ezetimibe 10 mg tablet 10 mg PO DAILY Qty: 90 1RF [id number] serr [Osteo Bi-Flex (5-Loxin)] 1,500-400-100 mg-unit-mg tablet 1 tab PO DAILY omega-3 fatty acids 1,000 mg capsule 1,000 mg PO DAILY Discharge Orders: Discharge Order (Routine); Ordered 08/26/22 Ordered By: Maximiliano Beauchamp Admission Data Admit Date/Time: 08/24/22 11:09 Attending Provider: Maximiliano Beauchamp Admit Provider: Hayden Claros Primary Care Provider: Teodoro Hooks Other Providers: Corbin Morrow ; Hayden Claros Coding Level of Care Code 20111 INP/OBS DISCH >30 MIN Diagnoses Non-ST elevated myocardial infarction (non-STEMI) I21.4 Hypoxia R09.02 Hypertension I10 Chronic reflux esophagitis K21.0
[2022-08-26] MEDS: ATORVASTATIN 40 MG TAB PO SCH (20:27)
--- NOTE | 2022-08-28 06:29 | Electrocardiogram Report ---
Test Reason : Blood Pressure : / mmHG Vent. Rate : 055 BPM Atrial Rate : 055 BPM P-R Int : 182 ms QRS Dur : 088 ms QT Int : 428 ms P-R-T Axes : 049 -03 029 degrees QTc Int : 409 ms Sinus bradycardia Nonspecific ST abnormality Abnormal ECG When compared with ECG of 24-AUG-2022 08:09, Fusion complexes are no longer Present Premature supraventricular complexes are no longer Present Vent. rate has decreased BY 59 BPM Confirmed by Corbin Morrow ([id number]) on 08/28/2022 6:29:43 AM Referred By: REFERRED SELF Confirmed By:Corbin Morrow
[2022-08-28 12:08] LABS: Ehrlichia chaff DNA Bld Negative (Negative)
== END 2022-08-26 21:48 | disposition short-term general hospital (02) | DRG 282 ==
LOC: ED 08:06 → SUATTDRO 11:09 → EDINP 11:09 → 2S 14:57

== ENCOUNTER 2022-11-19 21:41 | Inpatient (IN) ==
--- NOTE | 2022-11-19 22:17 | Emergency Department Note ---
Impression & Plan Acute UTI, Hypoxia, Weakness, Fall ED Provider Note Provider: Negrito Torres MD DATE OF SERVICE: 11/19/2022 CHIEF COMPLAINT: Fall, weakness, abdominal symptoms HISTORY OF PRESENT ILLNESS: Patient is a 82-year-old gentleman history of hypertension, CAD with CABG in the last 2 months, and enlarged prostate presenting here today via ambulance from home. Patient evidently today has been not been feeling that well. reports has been intermittently complaining some abdominal discomfort and has been having nausea and vomiting. Last night was having about 8 episodes where he had to get up and urinate overnight which was different than normal. Denies any significant chest pain or shortness of breath. Noted by EMS and nursing to be mildly hypoxic on room air in the high 80s. Denies recent fevers. Patient himself seems a bit confused according to and is not a good historian to what been happening. Denies any pain now or abdominal symptoms. PAST MEDICAL HISTORY: As noted above MEDICATIONS: Reviewed home medication SOCIAL HISTORY: and lives at home with , non-smoker PHYSICAL EXAM: GENERAL: alert and oriented in no acute distress on stretcher Head: normocephalic and atraumatic EYES: No injection, discharge or icterus. PERRL, EOMI. NECK: Trachea midline. Supple. ENT: Mucous membranes pink and moist. LUNGS: Airway patent. No retractions. Breath sounds clear with good air entry bilaterally. HEART: Regular rate and rhythm. No chest wall tenderness ABDOMEN: Soft and non-tender, without guarding or rebound. No masses SKIN: Acyanotic, warm, dry, without rashes EXTREMITIES: Without swelling, tenderness or deformity NEUROLOGICAL: No focal deficits. No aphasia. No facial droop or slurred speech. Normal strength and tone in the extremities. Sensation to gross touch normal. Ambulatory. EK bpm normal sinus rhythm. No PVC. No acute ST segment elevation. QTc 462. Some lateral ST flattening noted CONTINUOUS CARDIAC MONITORING: was ordered and showed a heart rate of 90s bpm in normal sinus rhythm 1 view chest x-ray per my interpretation: Sternotomy wires noted. No evidence of pneumothorax or obvious pneumonia. No free air under the diaphragm noted. Patient's laboratory studies and imaging reviewed. Differential includes Infection, gastrointestinal problems, PE, dehydration, metabolic abnormality, hypo/hyperglycemia, electrolyte disturbance, anemia, hypoxia, cardiac sources, intracerebral event, toxicologic, neurologic, as well as other pathologies. IMPRESSION/MEDICAL DECISION MAKING: Patient without significant focal neurological deficits generally somewhat drowsy. Did have a bit of a fall tonight but having GI symptoms throughout the day. Also noted to be mildly hypoxic. Prior cardiac history. No true fever here. Mild leukocytosis noted on blood work. Fairly benign abdomen on exam. Does not appear meningitic. Will send for CT of the head and cervical spine given the possible fall and his generalized weakness and vomiting. Will complete CT of the chest to exclude PE or other trauma or pneumonia as well as a CT abdomen pelvis look for intra-abdominal pathology given his complaints. No anemia. Slight leukocytosis on blood work. Lactate elevation noted BNP is also elevated with a normal troponin. No evidence of rhabdomyolysis. Procalcitonin not significant elevated and a normal TSH is noted. No evidence of hepatitis. Stable renal function. Do want a be careful avoid heart failure given his cardiac history and elevated BNP at this point so trying to avoid heavy fluid resuscitation at this time. Chest x-ray without evidence of pneumonia, free air, or severe pulmonary edema or evidence of pneumonia. Lactate is improving while here he is resting in bed. Again carefully given 500 mLs of normal saline with concerns for any particular fluid overload. Urinalysis concerning for infection and cover with Zosyn. Family evidence of UTI requires admission. They report the patient will be full code. Wished to go home given the late hour and informed them we will call them with additional updates but believe the patient given his weakness falls and family reports a history of UTI. Respiratory viral panel completed and negative. Hospitalist consulted for admission DIAGNOSIS: Weakness, nausea and vomiting, fall, acute UTI, hypoxia DISPOSITION: Hospitalist will evaluate Patient was agreeable with this plan. Past Med/Surg History Medical History (Updated 11/20/22 @ 02:21 by Ibeth Doss DO) Actinic keratosis CAD (coronary artery disease) Dyslipidemia Hypertension Nephrolithiasis Non-ST elevated myocardial infarction (non-STEMI) UTI (urinary tract infection) Surgical History (Updated 10/19/22 @ 14:17 by Surekha Hess RN) History of coronary artery bypass graft S/P tonsillectomy Status post laser lithotripsy of ureteral calculus Family History Grandfather Colorectal cancer Denies family history of Ovarian cancer Prostate cancer Myocardial infarction Breast cancer Social History Smoking Status: Never smoker Tobacco Type: Cigars Age Started Using Tobacco: 14; Age Quit Using Tobacco: 19; Cigarettes Per Day: JUST HERE AND THERE MOSTLY CIGARS; Second Hand Exposure: No; Do You Dip or Chew Tobacco: No; Hx Alcohol Use: No Hx Substance Use: No Preferred Language: [place] Communication Ability: Effective Visual Impairment: No Limitations Hearing Ability: Use of Hearing Aid Magnetic Grinder Operator Required: No Beliefs That Will Affect Care: None marital status: Current Living Situation: Spouse current occupational status: retired 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 Feels Safe at Home: Yes Safety Concerns: Feels Safe At This Time Childhood Exposure to Second-Hand Smoke: No Diet: regular Dental Care, Regularly: Yes Physical Activity Frequency: 5-6 Times per Week Seatbelt Use: always Sunscreen Use: Yes Assistive Devices: None Allergies Allergies Allergy/AdvReac Type Severity Reaction Status Date / Time ragweed pollen Allergy Intermediate CONGESTION Verified 11/19/22 22:35 Tetracyclines Allergy Unknown Unknown Verified 11/19/22 22:35 Home Meds Home Medications Medication Instructions Recorded Confirmed finasteride 5 mg tablet 5 mg PO QAM 09/20/22 11/19/22 acetaminophen 325 mg tablet 650 mg PO Q6H PRN Pain 11/19/22 11/19/22 (Tylenol) atorvastatin 40 mg tablet 40 mg PO QAM 11/19/22 11/19/22 melatonin 3 mg tablet 6 mg PO HS PRN Sleep 11/19/22 11/19/22 Previous Rx's Medication Instructions Recorded escitalopram oxalate 10 mg tablet 10 mg PO DAILY #90 tabs 06/04/22 (Lexapro) aspirin 81 mg tablet,delayed 81 mg PO QAM #30 tabs 08/26/22 release polyethylene glycol 3350 17 17 g PO DAILY PRN constipation 09/17/22 gram/dose oral powder (Miralax) #119 grams sennosides 8.6 mg-docusate sodium 1 tab-cap PO DAILY PRN 09/17/22 50 mg tablet (Senna with Docusate constipation #30 tabs Sodium) clopidogrel 75 mg tablet 75 mg PO DAILY #30 tabs 11/01/22 metoprolol tartrate 25 mg tablet 12.5 mg PO BID #90 tabs 11/01/22 amiodarone 200 mg tablet 200 mg PO QAM #90 tabs 11/04/22 Results & Data (ED) Vital Signs Vital Signs - 24 hr 11/19/22 21:36 11/19/22 21:44 11/19/22 22:14 Temperature 37.5 C 37.5 C Temperature Source Oral Oral Pulse Rate 93 H 92 H Pulse Rate [Apical] 92 H Pulse Rate from SpO2 Sensor Pulse Rhythm [Apical] Pulse Strength [Apical] Respiratory Rate 30 H 27 H 25 H Respiratory Effort / Characteristics Respiratory Depth Respiratory Pattern Blood Pressure 165/91 H Blood Pressure [Right Arm] Blood Pressure Mean 115 Blood Pressure Mean [Right Arm] Blood Pressure Position [Right Arm] Pulse Oximetry 88 L 92 92 Oxygen Delivery Method Room Air Nasal Cannula Nasal Cannula Oxygen Flow Rate 2 2 Sepsis Recent Fever Within 48 Hours No Sepsis New/Unexplained Change in Mental Status N/A Sepsis Action Taken by Nursing No Action Required 11/19/22 22:05 11/19/22 23:40 11/20/22 00:00 Temperature Temperature Source Pulse Rate 94 H 95 H 89 Pulse Rate [Apical] Pulse Rate from SpO2 Sensor 95 H 89 Pulse Rhythm [Apical] Pulse Strength [Apical] Respiratory Rate 13 19 Respiratory Effort / Characteristics Respiratory Depth Respiratory Pattern Blood Pressure 134/77 122/75 Blood Pressure [Right Arm] Blood Pressure Mean 96 90 Blood Pressure Mean [Right Arm] Blood Pressure Position [Right Arm] Pulse Oximetry 92 93 Oxygen Delivery Method Nasal Cannula Nasal Cannula Oxygen Flow Rate 2 2 Sepsis Recent Fever Within 48 Hours Sepsis New/Unexplained Change in Mental Status Sepsis Action Taken by Nursing 11/20/22 00:30 11/20/22 02:00 Temperature Temperature Source Pulse Rate 88 Pulse Rate [Apical] 80 Pulse Rate from SpO2 Sensor 88 Pulse Rhythm [Apical] Regular Pulse Strength [Apical] Normal Respiratory Rate 19 17 Respiratory Effort / Characteristics Non-Labored Respiratory Depth Normal Respiratory Pattern Regular Blood Pressure 123/77 Blood Pressure [Right Arm] 126/74 Blood Pressure Mean 92 Blood Pressure Mean [Right Arm] 91 Blood Pressure Position [Right Arm] Lying Pulse Oximetry 93 95 Oxygen Delivery Method Nasal Cannula Nasal Cannula Oxygen Flow Rate 2 2 Sepsis Recent Fever Within 48 Hours Sepsis New/Unexplained Change in Mental Status Sepsis Action Taken by Nursing Laboratory Data 11/19/22 21:57 11/19/22 21:57 Lab Results 11/19/22 11/19/22 11/19/22 Range/Units 21:57 21:57 21:57 WBC 12.64 H (4.8-10.8) K/ul RBC 4.62 L (4.70-6.10) M/uL Hgb 14.1 (14.0-18.0) g/dl Hct 41.5 L (42.0-52.0) % MCV 89.8 (80.0-100.0) fL MCH 30.5 (25.0-34.0) pg MCHC 34.0 (32.0-36.0) g/dL RDW Std Deviation 48.3 H (36.4-46.3) fL RDW Coeff of Bart 14.7 H (11.5-14.5) % Plt Count 211 (130-400) K/uL MPV 11.1 (9.4-12.4) fL Immature Gran % (Auto) 0.3 % Neut % (Auto) 81.2 % Lymph % (Auto) 13.1 % [place] % (Auto) 5.0 % Eos % (Auto) 0.2 % Baso % (Auto) 0.2 % Neut # (Auto) 10.26 H (1.40-6.50) K/uL Lymph # (Auto) 1.66 (1.20-3.40) K/uL [place] # (Auto) 0.63 H (0.11-0.59) K/uL Eos # (Auto) 0.02 (0.00-0.50) K/uL Baso # (Auto) 0.03 (0.00-0.20) K/uL Immature Gran # (Auto) 0.04 (0.01-0.20) K/uL PT 11.4 (9.0-12.0) Seconds INR 1.0 (0.9-1.1) Sodium 133 L (136-145) mmol/L Potassium 4.5 (3.5-5.1) mmol/L Chloride 100 (98-107) mmol/L Carbon Dioxide 21 (21-32) mmol/L Anion Gap 12 H (3-11) BUN 26 H (6-23) mg/dl Creatinine 1.26 (0.6-1.4) mg/dl Est Cr Clr Drug Dosing 47.8 ml/min Est GFR ( Amer) 60.3 ml/min Est GFR (Non-Af Amer) 52.0 ml/min BUN/Creatinine Ratio 20.6 H (10-20) Glucose 152 H (70-99(Fasting)) mg/dl Lactate (0.4-2.0) mmol/L Calcium 9.5 (8.6-10.3) mg/dl Magnesium 1.7 (1.7-2.4) mg/dl Total Bilirubin 1.3 H (0.2-1.0) mg/dl AST 24 (13-39) U/L ALT 18 (7-52) U/L Alkaline Phosphatase 76 (34-104) U/L Total Creatine Kinase 29 L (30-223) U/L Troponin I High Sens 17.1 (0-20) pg/ml B-Natriuretic Peptide (0-100) pg/ml Total Protein 6.7 (6.0-8.3) gm/dl Albumin 3.8 (3.4-5.0) gm/dl Globulin 2.9 (2.5-4.0) gm/dl Albumin/Globulin Ratio 1.3 (0.9-2) Procalcitonin (0-0.5) ng/ml TSH (0.300-4.500) uIu/ml Urine Color Urine Appearance (Clear) Urine pH (4.5-7.5) Ur Specific [place] (1.000-1.030) Urine Protein (Negative) Urine Glucose (UA) (Negative) Urine Ketones (Negative) Urine Blood (Negative) Urine Nitrite (Negative) Urine Bilirubin (Negative) Urine Urobilinogen (Negative) Ur Leukocyte Esterase (Negative) Urine WBC (Auto) (0-5) /hpf Urine RBC (Auto) (0-4) /hpf U Hyaline Cast (Auto) (0-5) /lpf U Epithel Cells (Auto) (0-5) /lpf Urine Bacteria (Auto) (Negative) Urine Yeast Adenovirus (PCR) (NotDetected) B. pertussis DNA (PCR) (NotDetected) B.parapertussis DNA PCR (NotDetected) C. pneumoniae DNA (PCR) (NotDetected) Coronavirus OC43 (PCR) (NotDetected) Coronavirus HKU1 (PCR) (NotDetected) Coronavirus 229E (PCR) (NotDetected) SARS-CoV-2 (PCR) (NotDetected) Coronavirus NL63 (PCR) (NotDetected) Human Metapneumovir PCR (NotDetected) Influenza Type A (PCR) (NotDetected) Influenza Type B (PCR) (NotDetected) M. pneumoniae (PCR) (NotDetected) Parainfluenza 1 (PCR) (NotDetected) Parainfluenza 2 (PCR) (NotDetected) Parainfluenza 3 (PCR) (NotDetected) Parainfluenza 4 (PCR) (NotDetected) RSV (PCR) (NotDetected) Entero/Rhino (PCR) (NotDetected) 11/19/22 11/19/22 11/19/22 Range/Units 21:57 21:57 21:57 WBC (4.8-10.8) K/ul RBC (4.70-6.10) M/uL Hgb (14.0-18.0) g/dl Hct (42.0-52.0) % MCV (80.0-100.0) fL MCH (25.0-34.0) pg MCHC (32.0-36.0) g/dL RDW Std Deviation (36.4-46.3) fL RDW Coeff of Bart (11.5-14.5) % Plt Count (130-400) K/uL MPV (9.4-12.4) fL Immature Gran % (Auto) % Neut % (Auto) % Lymph % (Auto) % [place] % (Auto) % Eos % (Auto) % Baso % (Auto) % Neut # (Auto) (1.40-6.50) K/uL Lymph # (Auto) (1.20-3.40) K/uL [place] # (Auto) (0.11-0.59) K/uL Eos # (Auto) (0.00-0.50) K/uL Baso # (Auto) (0.00-0.20) K/uL Immature Gran # (Auto) (0.01-0.20) K/uL PT (9.0-12.0) Seconds INR (0.9-1.1) Sodium (136-145) mmol/L Potassium (3.5-5.1) mmol/L Chloride (98-107) mmol/L Carbon Dioxide (21-32) mmol/L Anion Gap (3-11) BUN (6-23) mg/dl Creatinine (0.6-1.4) mg/dl Est Cr Clr Drug Dosing ml/min Est GFR ( Amer) ml/min Est GFR (Non-Af Amer) ml/min BUN/Creatinine Ratio (10-20) Glucose (70-99(Fasting)) mg/dl Lactate (0.4-2.0) mmol/L Calcium (8.6-10.3) mg/dl Magnesium (1.7-2.4) mg/dl Total Bilirubin (0.2-1.0) mg/dl AST (13-39) U/L ALT (7-52) U/L Alkaline Phosphatase (34-104) U/L Total Creatine Kinase (30-223) U/L Troponin I High Sens (0-20) pg/ml B-Natriuretic Peptide 305 H (0-100) pg/ml Total Protein (6.0-8.3) gm/dl Albumin (3.4-5.0) gm/dl Globulin (2.5-4.0) gm/dl Albumin/Globulin Ratio (0.9-2) Procalcitonin 0.07 (0-0.5) ng/ml TSH 0.968 (0.300-4.500) uIu/ml Urine Color Urine Appearance (Clear) Urine pH (4.5-7.5) Ur Specific [place] (1.000-1.030) Urine Protein (Negative) Urine Glucose (UA) (Negative) Urine Ketones (Negative) Urine Blood (Negative) Urine Nitrite (Negative) Urine Bilirubin (Negative) Urine Urobilinogen (Negative) Ur Leukocyte Esterase (Negative) Urine WBC (Auto) (0-5) /hpf Urine RBC (Auto) (0-4) /hpf U Hyaline Cast (Auto) (0-5) /lpf U Epithel Cells (Auto) (0-5) /lpf Urine Bacteria (Auto) (Negative) Urine Yeast Adenovirus (PCR) (NotDetected) B. pertussis DNA (PCR) (NotDetected) B.parapertussis DNA PCR (NotDetected) C. pneumoniae DNA (PCR) (NotDetected) Coronavirus OC43 (PCR) (NotDetected) Coronavirus HKU1 (PCR) (NotDetected) Coronavirus 229E (PCR) (NotDetected) SARS-CoV-2 (PCR) (NotDetected) Coronavirus NL63 (PCR) (NotDetected) Human Metapneumovir PCR (NotDetected) Influenza Type A (PCR) (NotDetected) Influenza Type B (PCR) (NotDetected) M. pneumoniae (PCR) (NotDetected) Parainfluenza 1 (PCR) (NotDetected) Parainfluenza 2 (PCR) (NotDetected) Parainfluenza 3 (PCR) (NotDetected) Parainfluenza 4 (PCR) (NotDetected) RSV (PCR) (NotDetected) Entero/Rhino (PCR) (NotDetected) 11/19/22 11/20/22 11/20/22 Range/Units 22:20 00:20 00:20 WBC (4.8-10.8) K/ul RBC (4.70-6.10) M/uL Hgb (14.0-18.0) g/dl Hct (42.0-52.0) % MCV (80.0-100.0) fL MCH (25.0-34.0) pg MCHC (32.0-36.0) g/dL RDW Std Deviation (36.4-46.3) fL RDW Coeff of Bart (11.5-14.5) % Plt Count (130-400) K/uL MPV (9.4-12.4) fL Immature Gran % (Auto) % Neut % (Auto) % Lymph % (Auto) % [place] % (Auto) % Eos % (Auto) % Baso % (Auto) % Neut # (Auto) (1.40-6.50) K/uL Lymph # (Auto) (1.20-3.40) K/uL [place] # (Auto) (0.11-0.59) K/uL Eos # (Auto) (0.00-0.50) K/uL Baso # (Auto) (0.00-0.20) K/uL Immature Gran # (Auto) (0.01-0.20) K/uL PT (9.0-12.0) Seconds INR (0.9-1.1) Sodium (136-145) mmol/L Potassium (3.5-5.1) mmol/L Chloride (98-107) mmol/L Carbon Dioxide (21-32) mmol/L Anion Gap (3-11) BUN (6-23) mg/dl Creatinine (0.6-1.4) mg/dl Est Cr Clr Drug Dosing ml/min Est GFR ( Amer) ml/min Est GFR (Non-Af Amer) ml/min BUN/Creatinine Ratio (10-20) Glucose (70-99(Fasting)) mg/dl Lactate 3.2 H* (0.4-2.0) mmol/L Calcium (8.6-10.3) mg/dl Magnesium (1.7-2.4) mg/dl Total Bilirubin (0.2-1.0) mg/dl AST (13-39) U/L ALT (7-52) U/L Alkaline Phosphatase (34-104) U/L Total Creatine Kinase (30-223) U/L Troponin I High Sens (0-20) pg/ml B-Natriuretic Peptide (0-100) pg/ml Total Protein (6.0-8.3) gm/dl Albumin (3.4-5.0) gm/dl Globulin (2.5-4.0) gm/dl Albumin/Globulin Ratio (0.9-2) Procalcitonin (0-0.5) ng/ml TSH (0.300-4.500) uIu/ml Urine Color Yellow Urine Appearance Cloudy A (Clear) Urine pH 6.0 (4.5-7.5) Ur Specific [place] 1.042 H (1.000-1.030) Urine Protein Negative (Negative) Urine Glucose (UA) Negative (Negative) Urine Ketones 1+ H (Negative) Urine Blood 1+ H (Negative) Urine Nitrite Positive A (Negative) Urine Bilirubin Negative (Negative) Urine Urobilinogen Negative (Negative) Ur Leukocyte Esterase 3+ H (Negative) Urine WBC (Auto) >30 H (0-5) /hpf Urine RBC (Auto) 5-10 H (0-4) /hpf U Hyaline Cast (Auto) 0 (0-5) /lpf U Epithel Cells (Auto) 5-10 H (0-5) /lpf Urine Bacteria (Auto) 3+ H (Negative) Urine Yeast Not Reportable Adenovirus (PCR) Not Detected (NotDetected) B. pertussis DNA (PCR) Not Detected (NotDetected) B.parapertussis DNA PCR Not Detected (NotDetected) C. pneumoniae DNA (PCR) Not Detected (NotDetected) Coronavirus OC43 (PCR) Not Detected (NotDetected) Coronavirus HKU1 (PCR) Not Detected (NotDetected) Coronavirus 229E (PCR) Not Detected (NotDetected) SARS-CoV-2 (PCR) Not Detected (NotDetected) Coronavirus NL63 (PCR) Not Detected (NotDetected) Human Metapneumovir PCR Not Detected (NotDetected) Influenza Type A (PCR) Not Detected (NotDetected) Influenza Type B (PCR) Not Detected (NotDetected) M. pneumoniae (PCR) Not Detected (NotDetected) Parainfluenza 1 (PCR) Not Detected (NotDetected) Parainfluenza 2 (PCR) Not Detected (NotDetected) Parainfluenza 3 (PCR) Not Detected (NotDetected) Parainfluenza 4 (PCR) Not Detected (NotDetected) RSV (PCR) Not Detected (NotDetected) Entero/Rhino (PCR) Not Detected (NotDetected) 11/20/22 Range/Units 00:20 WBC (4.8-10.8) K/ul RBC (4.70-6.10) M/uL Hgb (14.0-18.0) g/dl Hct (42.0-52.0) % MCV (80.0-100.0) fL MCH (25.0-34.0) pg MCHC (32.0-36.0) g/dL RDW Std Deviation (36.4-46.3) fL RDW Coeff of Bart (11.5-14.5) % Plt Count (130-400) K/uL MPV (9.4-12.4) fL Immature Gran % (Auto) % Neut % (Auto) % Lymph % (Auto) % [place] % (Auto) % Eos % (Auto) % Baso % (Auto) % Neut # (Auto) (1.40-6.50) K/uL Lymph # (Auto) (1.20-3.40) K/uL [place] # (Auto) (0.11-0.59) K/uL Eos # (Auto) (0.00-0.50) K/uL Baso # (Auto) (0.00-0.20) K/uL Immature Gran # (Auto) (0.01-0.20) K/uL PT (9.0-12.0) Seconds INR (0.9-1.1) Sodium (136-145) mmol/L Potassium (3.5-5.1) mmol/L Chloride (98-107) mmol/L Carbon Dioxide (21-32) mmol/L Anion Gap (3-11) BUN (6-23) mg/dl Creatinine (0.6-1.4) mg/dl Est Cr Clr Drug Dosing ml/min Est GFR ( Amer) ml/min Est GFR (Non-Af Amer) ml/min BUN/Creatinine Ratio (10-20) Glucose (70-99(Fasting)) mg/dl Lactate 1.6 (0.4-2.0) mmol/L Calcium (8.6-10.3) mg/dl Magnesium (1.7-2.4) mg/dl Total Bilirubin (0.2-1.0) mg/dl AST (13-39) U/L ALT (7-52) U/L Alkaline Phosphatase (34-104) U/L Total Creatine Kinase (30-223) U/L Troponin I High Sens (0-20) pg/ml B-Natriuretic Peptide (0-100) pg/ml Total Protein (6.0-8.3) gm/dl Albumin (3.4-5.0) gm/dl Globulin (2.5-4.0) gm/dl Albumin/Globulin Ratio (0.9-2) Procalcitonin (0-0.5) ng/ml TSH (0.300-4.500) uIu/ml Urine Color Urine Appearance (Clear) Urine pH (4.5-7.5) Ur Specific [place] (1.000-1.030) Urine Protein (Negative) Urine Glucose (UA) (Negative) Urine Ketones (Negative) Urine Blood (Negative) Urine Nitrite (Negative) Urine Bilirubin (Negative) Urine Urobilinogen (Negative) Ur Leukocyte Esterase (Negative) Urine WBC (Auto) (0-5) /hpf Urine RBC (Auto) (0-4) /hpf U Hyaline Cast (Auto) (0-5) /lpf U Epithel Cells (Auto) (0-5) /lpf Urine Bacteria (Auto) (Negative) Urine Yeast Adenovirus (PCR) (NotDetected) B. pertussis DNA (PCR) (NotDetected) B.parapertussis DNA PCR (NotDetected) C. pneumoniae DNA (PCR) (NotDetected) Coronavirus OC43 (PCR) (NotDetected) Coronavirus HKU1 (PCR) (NotDetected) Coronavirus 229E (PCR) (NotDetected) SARS-CoV-2 (PCR) (NotDetected) Coronavirus NL63 (PCR) (NotDetected) Human Metapneumovir PCR (NotDetected) Influenza Type A (PCR) (NotDetected) Influenza Type B (PCR) (NotDetected) M. pneumoniae (PCR) (NotDetected) Parainfluenza 1 (PCR) (NotDetected) Parainfluenza 2 (PCR) (NotDetected) Parainfluenza 3 (PCR) (NotDetected) Parainfluenza 4 (PCR) (NotDetected) RSV (PCR) (NotDetected) Entero/Rhino (PCR) (NotDetected) Administered Medications Amiodarone HCl (Amiodarone 200 Mg Tab) 200 mg PO [facility] Stop: 12/20/22 08:59 Last Admin: 11/20/22 09:50 Dose: 200 mg Documented By: BCD Aspirin (Aspirin 81 Mg Ectab) 81 mg PO [facility] Stop: 12/20/22 08:59 Last Admin: 11/20/22 09:50 Dose: 81 mg Documented By: BCD Atorvastatin Calcium (Atorvastatin 40 Mg Tab) 40 mg PO [facility] Stop: 12/20/22 08:59 Last Admin: 11/20/22 09:50 Dose: 40 mg Documented By: BCD Clopidogrel Bisulfate (Clopidogrel Bisulfate 75 Mg Tab) 75 mg PO DAILY [facility] Stop: 12/20/22 08:59 Last Admin: 11/20/22 09:50 Dose: 75 mg Documented By: CONOR Escitalopram Oxalate (Escitalopram Oxalate 10 Mg Tab) 10 mg PO DAILY [facility] Stop: 12/20/22 08:59 Last Admin: 11/20/22 09:50 Dose: 10 mg Documented By: CONOR Finasteride (Finasteride 5 Mg Tab) 5 mg PO QAM [facility] Stop: 12/20/22 08:59 Last Admin: 11/20/22 09:50 Dose: 5 mg Documented By: CONOR Piperacillin Sod/Tazobactam (Sod 4.5 gm/ Dextrose) 120 mls @ 30 mls/hr IV Q8H [facility]; Protocol Stop: 11/30/22 05:59 Last Infusion: 11/20/22 09:59 Dose: 0 mls/hr Documented By: Admin: 11/20/22 06:36 Dose: 30 mls/hr Documented By: RYANNE Metoprolol Tartrate (Metoprolol Tartrate 25 Mg Tab) 12.5 mg PO BID [facility] Stop: 12/20/22 08:59 Last Admin: 11/20/22 09:50 Dose: 12.5 mg Documented By: CONOR Discontinued Medications Sodium Chloride (Nss 1000ml) 500 mls @ 999 mls/hr IV .Q31M ONE Stop: 11/20/22 01:21 Last Infusion: 11/20/22 01:52 Dose: 0 mls/hr Documented By: Admin: 11/20/22 01:10 Dose: 999 mls/hr Documented By: RYANNE Piperacillin Sod/Tazobactam Sod (Zosyn) 4.5 gm in 120 mls @ 240 mls/hr IV NOW ONE Stop: 11/20/22 01:20 Last Infusion: 11/20/22 01:51 Dose: 0 mls/hr Documented By: Admin: 11/20/22 01:10 Dose: 240 mls/hr Documented By: RYANNE Ioversol (Ioversol 350 Mg 125ml Prefilled Syringe) 119 ml IV ONCE ONE Stop: 11/19/22 23:36 Last Admin: 11/19/22 23:35 Dose: 119 ml Documented By: RONIW Imaging Data Radiologist's Impression: Abdomen/Pelvis CT 11/19/22 22:14 Exam(s): CT ABDOMEN + PELVIS With Contrast IV Amt: 119 ml opti 350 EXAM: CT Abdomen and Pelvis With Intravenous Contrast CLINICAL HISTORY: Reason for exam: fall, n/v. TECHNIQUE: Axial computed tomography images of the abdomen and pelvis with intravenous contrast. Automated exposure control was utilized for the study. A dose lowering technique was utilized adhering to the principles of ALARA. CONTRAST: Patient received 119 ml opti 350 of IV contrast COMPARISON: 05/02/2011 FINDINGS: Lung bases: Postoperative changes prior median sternotomy. Coronary artery calcification. Calcified granuloma right lower lobe. Bibasilar dependent atelectasis. ABDOMEN: Liver: Unremarkable. No mass. Gallbladder and bile ducts: Unremarkable. No calcified stones. No ductal dilation. Pancreas: Unremarkable. No mass. No ductal dilation. Spleen: Calcified granuloma within the spleen. Adrenals: Unremarkable. No mass. Kidneys and ureters: right renal hypodensities measuring up to 5.4 cm in the lower pole . Left renal hypodensities measuring up to 2.5 cm mid pole. No hydronephrosis. Stomach and bowel: Unremarkable. No obstruction. No mucosal thickening. PELVIS: Appendix: Normal-appearing appendix. Bladder: Unremarkable. No mass. Reproductive: Unremarkable as visualized. ABDOMEN and PELVIS: Intraperitoneal space: Unremarkable. No free air. No significant fluid collection. Bones/joints: No acute fracture. No dislocation. Soft tissues: Unremarkable. Vasculature: Unremarkable. No abdominal aortic aneurysm. Lymph nodes: Unremarkable. No enlarged lymph nodes. IMPRESSION: No acute findings in the abdomen or pelvis. Electronically signed by: Ej Slade MD 11/20/22 01:[address] 11/19/22 22:14 Exam(s): CT C SPINE EXAM: CT Cervical Spine Without Intravenous Contrast CLINICAL HISTORY: Reason for exam: fall. TECHNIQUE: Axial computed tomography images of the cervical spine without intravenous contrast. Automated exposure control was utilized for the study. A dose lowering technique was utilized adhering to the principles of ALARA. COMPARISON: No relevant prior studies available. FINDINGS: No fracture or subluxations are noted. The vertebral body heights and alignment are preserved. No prevertebral soft tissue swelling. Note is made of multilevel cervical spondylosis with varying degrees of central canal and foramina stenoses. IMPRESSION: 1. No cervical fractures. 2. Cervical spondylosis with varying degrees of central canal and foramina stenoses. Electronically signed by: Ej Slade MD 11/20/22 01:47 AM Chest CTA 11/19/22 22:14 Exam(s): CTA CHEST IV Amt: 119 ml opti 350 EXAM: CT Angiography Chest With Intravenous Contrast CLINICAL HISTORY: Reason for exam: PE, fall, sob. TECHNIQUE: Axial computed tomographic angiography images of the chest with intravenous contrast. Automated exposure control was utilized for the study. A dose lowering technique was utilized adhering to the principles of ALARA. 2D MIP reconstructed images were created and reviewed. COMPARISON: No relevant prior studies available. FINDINGS: Pulmonary arteries: Unremarkable. No pulmonary embolism. Aorta: Ascending thoracic aortic aneurysm measuring 4 cm. Lungs: See below. Pleural space: Trace right pleural effusion with bilateral dependent atelectasis. No pneumothorax. Heart: Cardiomegaly. No significant pericardial effusion. No evidence of RV dysfunction. Bones/joints: No acute fracture. No dislocation. Soft tissues: Unremarkable. Lymph nodes: Unremarkable. No enlarged lymph nodes. Liver: Fatty infiltration of liver. Spleen: Punctate calcifications within the spleen consistent with prior granulomatous disease. IMPRESSION: 1. No pulmonary embolus 2. Bibasilar dependent atelectasis of trace right pleural effusion. 3. Cardiomegaly. 4. Ascending aortic aneurysm measuring 4 cm. Electronically signed by: Ej Slade MD 11/20/22 01:45 AM Chest X-Ray 11/19/22 22:14 XR chest 1V portable CLINICAL HISTORY: weakness, sob TECHNIQUE: Single frontal radiograph of the chest was obtained. Comparison: Comparison is made to chest radiograph 09/20/2022 FINDINGS: Median sternotomy wires are unchanged. Cardiomegaly is noted. The lungs are clear. No evidence of pleural effusion or pneumothorax. IMPRESSION: No acute chest disease. ACT 112: Negative or not required by law. Electronically signed by: Jose Devries M.D. 11/20/2022 8:[address] 11/19/22 22:14 Exam(s): CT HEAD Without Contrast EXAM: CT Head Without Intravenous Contrast CLINICAL HISTORY: Reason for exam: fall. TECHNIQUE: Axial computed tomography images of the head/brain without intravenous contrast. Automated exposure control was utilized for the study. A dose lowering technique was utilized adhering to the principles of ALARA. COMPARISON: No relevant prior studies available. FINDINGS: Brain: Moderate ischemic microangiopathy. Mild cerebral volume loss. No acute intracranial hemorrhage. No acute transcortical infarct. Impression:. Head CT negative for acute intracranial abnormality. Ventricles: Unremarkable. No ventriculomegaly. Bones/joints: Unremarkable. No acute fracture. Soft tissues: Unremarkable. Sinuses: Unremarkable as visualized. No acute sinusitis. Mastoid air cells: Unremarkable as visualized. No mastoid effusion. IMPRESSION: No acute findings in the head/brain. Electronically signed by: Ej Slade MD 11/20/22 02:05 AM Discharge Plan Visit Data Chief Complaint: Fall Stated Complaint: FALL/NAUSEA & EMISIS ED Provider: Negrito Torres Discharge Problem: Acute UTI, Hypoxia, Weakness, Fall Patient Disposition: Admitted As Inpatient Discharge Instructions Interventions: ED Discharge Assessment Last Done: 11/20/22 08:07 Fall Qualifiers: Encounter type: initial encounter Qualified Code(s): W19.XXXA - Unspecified fall, initial encounter
[2022-11-19 22:21] LABS: Basophils # (auto) 0.03 K/uL (0.00-0.20); Basophils % (auto) 0.2 %; Eosinophils # (auto) 0.02 K/uL (0.00-0.50); Eosinophils % (auto) 0.2 %; Hematocrit (blood only) 41.5 % (42.0-52.0); Hemoglobin 14.1 g/dl (14.0-18.0); Immature Granulocytes # (auto) 0.04 K/uL (0.01-0.20); Immature Granulocytes % (auto) 0.3 %; Lymphocytes # (auto) 1.66 K/uL (1.20-3.40); Lymphocytes % (auto) 13.1 %; Mean Corpuscular Hemoglobin 30.5 pg (25.0-34.0); Mean Corpuscular Volume 89.8 fL (80.0-100.0); Mean Platelet Volume 11.1 fL (9.4-12.4); Monocytes # (auto) 0.63 K/uL (0.11-0.59); Neutrophils # (auto) 10.26 K/uL (1.40-6.50); Neutrophils % (auto) 81.2 %; Platelet Count 211 K/uL (130-400); RDW Coefficient of Variation 14.7 % (11.5-14.5); RDW Standard Deviation 48.3 fL (36.4-46.3); Red Blood Count 4.62 M/uL (4.70-6.10); White Blood Count 12.64 K/ul (4.8-10.8)
[2022-11-19 22:33] LABS: Prothrombin Time 11.4 Seconds (9.0-12.0)
[2022-11-19 22:36] LABS: Albumin Level 3.8 gm/dl (3.4-5.0); Bilirubin,Total 1.3 mg/dl (0.2-1.0); Calcium 9.5 mg/dl (8.6-10.3); Magnesium 1.7 mg/dl (1.7-2.4); Potassium 4.5 mmol/L (3.5-5.1)
[2022-11-19 22:42] LABS: Albumin Globulin Ratio 1.3 (0.9-2); BUN Creatinine Ratio 20.6 (10-20); Creatinine Clr Calc Pharmacy 47.8 ml/min; Est GFR (African American) 60.3 ml/min; Globulin 2.9 gm/dl (2.5-4.0); Total Protein 6.7 gm/dl (6.0-8.3)
[2022-11-19 22:47] LABS: Troponin I High Sensitivity 17.1 pg/ml (0-20)
[2022-11-19] MEDS ORDERED: IOVERSOL 350 MG 125mL Prefilled Syringe IV ONE (23:35)
[2022-11-20 00:47] LABS: Appearance Urine Cloudy (Clear); Bacteria Urine Automated 3+ (Negative); Bilirubin Urine Negative (Negative); Blood Urine 1+ (Negative); Cast Urine Automated 0 /lpf (0-5); Color Urine Yellow; Glucose Urine UA Negative (Negative); Ketones Urine 1+ (Negative); Leukocyte Esterase Urine 3+ (Negative); Nitrite Urine Positive (Negative); Protein Urine Negative (Negative); Specific Gravity Urine 1.042 (1.000-1.030); Urobilinogen Urine Negative (Negative); WBC Urine Automated >30 /hpf (0-5)
[2022-11-20] MEDS ORDERED: SODIUM CHLORIDE 0.9% 500 ML IV ONE (00:51)
[2022-11-20] MEDS ORDERED: PIPERACILLIN/TAZOBACTAM 4.5 GM/120 ML BAG IV ONE (00:51)
--- NOTE | 2022-11-20 01:19 | History & Physical Report ---
Date of Service November 20, 2022 Assessment & Plan (1) Acute UTI: Plan: 82yo Male with PMH HTN BPH CAD s/p CABG 2 months ago for NSTEMI, depression afib, here for fall 2/2 UTI Sepsis. Sepsis with UTI -lactate 3.2 downtrended to 1.6 -WBC 12.64 -UA concerning for infection, likely source -in ED received zosyn, NSS 500ml -CT A/P wnl -CT chest: No pulmonary embolus Bibasilar dependent atelectasis of trace right pleural effusion. Cardiomegaly.. Ascending aortic aneurysm measuring 4 cm. -admit to med tele -Ucx pending -Bcx pending -continue zosyn CAD s/p CABG, hx NSTEMI, HTN -BNP 305 -caution with fluids -continue aspirin, plavix -continue metoprolol hx Afib RVR -continue amiodarone -Depression -continue lexapro HLD -continue atorvastation BPH -continue finasteride Weakness/Falls -CT head neck no fracture or hemorrhage, Cervical spondylosis with varying degrees of central canal and foramina stenoses. -PT/OT consulted FENa: heart healthy Code Status: full DVT PPX: SCDs PT/OT: ordered Dispo: med/tele Ibeth Doss D.O. PGY 3, FCM (2) Sepsis: (3) Enlarged prostate with lower urinary tract symptoms (LUTS): (4) Depression: (5) S/P CABG x 3: (6) Fall: (7) Hypertension: (8) Dyslipidemia: (9) CAD (coronary artery disease): History of Present Illness Chief Complaint: Sepsis UTI Primary Care Provider: Teodoro Hooks DO 82yo Male with PMH HTN BPH CAD s/p CABG 2 months ago for NSTEMI here for fall 2/2 UTI Sepsis. Patient cannot recall fall, states he feels fine denies any fever chills headache dizziness nausea vomitting chest pain abd pain diarrhea constipation pain with urination, insisted he needed to urinate immediately, produced small amount of urine in bedside urinal. Stated POA is Ly. Given patient's AMS, contacted Ly. Per Ly, last night patient went to e 8 times, fell on the floor hit his head, they had neighbor come over to help get him up. Patient had nausea and vomitting at that time, noted urine smelled 'funny', did not have fever or pain. noted patient had some confusion during this time. When asked about his code status, patient stated he would want resuscitation in the event of cardiac arrest, this was confirmed with his . When asked about intubation and how it was necessary for CPR, patient declined saying he would live anyway. Clarified with , while they have not discussed intubation she states he would want to have it performed if needed. Allergies Allergy/AdvReac Type Severity Reaction Status Date / Time ragweed pollen Allergy Intermediate CONGESTION Verified 11/19/22 22:35 Tetracyclines Allergy Unknown Unknown Verified 11/19/22 22:35 Home Medications Medication Instructions Recorded Confirmed Type escitalopram oxalate 10 mg tablet 10 mg PO DAILY #90 tabs 06/04/22 11/19/22 Rx (Lexapro) aspirin 81 mg tablet,delayed 81 mg PO QAM #30 tabs 08/26/22 11/19/22 Rx release polyethylene glycol 3350 17 17 g PO DAILY PRN constipation 09/17/22 11/19/22 Rx gram/dose oral powder (Miralax) #119 grams sennosides 8.6 mg-docusate sodium 1 tab-cap PO DAILY PRN 09/17/22 11/19/22 Rx 50 mg tablet (Senna with Docusate constipation #30 tabs Sodium) finasteride 5 mg tablet 5 mg PO QAM 09/20/22 11/19/22 History clopidogrel 75 mg tablet 75 mg PO DAILY #30 tabs 11/01/22 11/19/22 Rx metoprolol tartrate 25 mg tablet 12.5 mg PO BID #90 tabs 11/01/22 11/19/22 Rx amiodarone 200 mg tablet 200 mg PO QAM #90 tabs 11/04/22 11/19/22 Rx acetaminophen 325 mg tablet 650 mg PO Q6H PRN Pain 11/19/22 11/19/22 History (Tylenol) atorvastatin 40 mg tablet 40 mg PO QAM 11/19/22 11/19/22 History melatonin 3 mg tablet 6 mg PO HS PRN Sleep 11/19/22 11/19/22 History Past Med/Surg History Medical History (Updated 11/20/22 @ 02:21 by Ibeth Doss DO) Actinic keratosis CAD (coronary artery disease) Dyslipidemia Hypertension Nephrolithiasis Non-ST elevated myocardial infarction (non-STEMI) UTI (urinary tract infection) Surgical History (Updated 10/19/22 @ 14:17 by Surekha Hess, SOPHIA) History of coronary artery bypass graft S/P tonsillectomy Status post laser lithotripsy of ureteral calculus Family History Grandfather Colorectal cancer Denies family history of Ovarian cancer Prostate cancer Myocardial infarction Breast cancer Social History Smoking Status: Never smoker Tobacco Type: Cigars Age Started Using Tobacco: 14; Age Quit Using Tobacco: 19; Cigarettes Per Day: JUST HERE AND THERE MOSTLY CIGARS; Second Hand Exposure: No; Do You Dip or Chew Tobacco: No; Hx Alcohol Use: No Hx Substance Use: No Preferred Language: Italian Communication Ability: Effective Visual Impairment: No Limitations Hearing Ability: Use of Hearing Aid Strategic Analyst Required: No Beliefs That Will Affect Care: None marital status: Current Living Situation: Spouse current occupational status: retired 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 Feels Safe at Home: Yes Safety Concerns: Feels Safe At This Time Childhood Exposure to Second-Hand Smoke: No Diet: regular Dental Care, Regularly: Yes Physical Activity Frequency: 5-6 Times per Week Seatbelt Use: always Sunscreen Use: Yes Assistive Devices: None Physical Exam Constitutional: well developed, well nourished, cooperative and comfortable Eyes: PERRL, conjunctivae normal, anicteric sclerae ENMT: external ear and nose normal, oropharynx normal Respiratory: normal respiratory effort, lungs clear to auscultation Cardiovascular: Rate/Rhythm: regular rate and regular rhythm Extremities: no edema Gastrointestinal (Abdomen): Inspection/Auscultation: abdomen normal to inspection Percussion/Palpation: abdomen soft; abdomen nontender Skin: no rashes, warm and dry Results & Data Results & Data Vital Signs (Past 12 Hours) Vital Signs Temp Pulse Pulse Resp BP Pulse Ox O2 Del Method 11/20/22 00:30 88 19 123/77 93 Nasal Cannula 11/20/22 00:00 89 19 122/75 93 Nasal Cannula 11/19/22 23:40 95 H 13 134/77 92 Nasal Cannula 11/19/22 22:05 94 H 11/19/22 22:14 92 H 25 H 92 Nasal Cannula 11/19/22 21:44 37.5 C 92 H 27 H 92 Nasal Cannula 11/19/22 21:36 37.5 C 93 H 30 H 165/91 H 88 L Room Air O2 Flow Rate 11/20/22 00:30 2 11/20/22 00:00 2 11/19/22 23:40 2 11/19/22 22:05 11/19/22 22:14 2 11/19/22 21:44 2 11/19/22 21:36 Supervising Physician Co-Signing Physician Notes Attending addendum: I have physically seen this patient, have supervised the medical residents a ctivities, and agree with the H&P unless as otherwise noted. Assessment and Plan: Sepsis due to UTI- Likely cause of presenting symptoms of generalized weakness, vomiting and recent falls Follow urine culture and sensitivity Zosyn 4.5 g IV every 8 hours Status post normal saline 500 mL in the ED Serial CBC with differential, renal function panel magnesium level CAD/status post CABG/history of STEMI/hypertension/A-fib RVR history- Continue amiodarone, metoprolol with hold parameters, aspirin and clopidogrel Remaining orders and notations as noted Resident Activity Tracking Resident Involvement: Resident Care Provided Care Provided: Adult Hospital Medicine (6) Fall Encounter type: initial encounter Qualified Code(s): W19.XXXA - Unspecified fall, initial encounter
--- NOTE | 2022-11-20 01:27 | CT Scan Report ---
Exam(s): CT ABDOMEN + PELVIS With Contrast IV Amt: 119 ml opti 350 EXAM: CT Abdomen and Pelvis With Intravenous Contrast CLINICAL HISTORY: Reason for exam: fall, n/v. TECHNIQUE: Axial computed tomography images of the abdomen and pelvis with intravenous contrast. Automated exposure control was utilized for the study. A dose lowering technique was utilized adhering to the principles of ALARA. CONTRAST: Patient received 119 ml opti 350 of IV contrast COMPARISON: 05/02/2011 FINDINGS: Lung bases: Postoperative changes prior median sternotomy. Coronary artery calcification. Calcified granuloma right lower lobe. Bibasilar dependent atelectasis. ABDOMEN: Liver: Unremarkable. No mass. Gallbladder and bile ducts: Unremarkable. No calcified stones. No ductal dilation. Pancreas: Unremarkable. No mass. No ductal dilation. Spleen: Calcified granuloma within the spleen. Adrenals: Unremarkable. No mass. Kidneys and ureters: right renal hypodensities measuring up to 5.4 cm in the lower pole . Left renal hypodensities measuring up to 2.5 cm mid pole. No hydronephrosis. Stomach and bowel: Unremarkable. No obstruction. No mucosal thickening. PELVIS: Appendix: Normal-appearing appendix. Bladder: Unremarkable. No mass. Reproductive: Unremarkable as visualized. ABDOMEN and PELVIS: Intraperitoneal space: Unremarkable. No free air. No significant fluid collection. Bones/joints: No acute fracture. No dislocation. Soft tissues: Unremarkable. Vasculature: Unremarkable. No abdominal aortic aneurysm. Lymph nodes: Unremarkable. No enlarged lymph nodes. IMPRESSION: No acute findings in the abdomen or pelvis. Electronically signed by: Ej Slade MD 11/20/22 01:26 AM
[2022-11-20 01:31] LABS: Adenovirus PCR Not Detected (NotDetected); Bordetella parapertussis PCR Not Detected (NotDetected); Bordetella pertussis PCR Not Detected (NotDetected); Chlamydia pneumoniae PCR Not Detected (NotDetected); Coronavirus 229E PCR Not Detected (NotDetected); Coronavirus CoV-2 (COVID19)PCR Not Detected (NotDetected); Coronavirus HKU1 PCR Not Detected (NotDetected); Coronavirus NL63 PCR Not Detected (NotDetected); Coronavirus OC43PCR Not Detected (NotDetected); Human Metapneumovirus PCR Not Detected (NotDetected); Influenza A PCR Not Detected (NotDetected); Influenza B PCR Not Detected (NotDetected); Mycoplasma pneumoniae PCR Not Detected (NotDetected); Parainfluenza Virus 1 PCR Not Detected (NotDetected); Parainfluenza Virus 2 PCR Not Detected (NotDetected); Parainfluenza Virus 3 PCR Not Detected (NotDetected); Parainfluenza Virus 4 PCR Not Detected (NotDetected); Respiratory Syncytial VirusPCR Not Detected (NotDetected); Rhinovirus/Enterovirus PCR Not Detected (NotDetected)
--- NOTE | 2022-11-20 01:46 | CT Scan Report ---
Exam(s): CTA CHEST IV Amt: 119 ml opti 350 EXAM: CT Angiography Chest With Intravenous Contrast CLINICAL HISTORY: Reason for exam: PE, fall, sob. TECHNIQUE: Axial computed tomographic angiography images of the chest with intravenous contrast. Automated exposure control was utilized for the study. A dose lowering technique was utilized adhering to the principles of ALARA. 2D MIP reconstructed images were created and reviewed. COMPARISON: No relevant prior studies available. FINDINGS: Pulmonary arteries: Unremarkable. No pulmonary embolism. Aorta: Ascending thoracic aortic aneurysm measuring 4 cm. Lungs: See below. Pleural space: Trace right pleural effusion with bilateral dependent atelectasis. No pneumothorax. Heart: Cardiomegaly. No significant pericardial effusion. No evidence of RV dysfunction. Bones/joints: No acute fracture. No dislocation. Soft tissues: Unremarkable. Lymph nodes: Unremarkable. No enlarged lymph nodes. Liver: Fatty infiltration of liver. Spleen: Punctate calcifications within the spleen consistent with prior granulomatous disease. IMPRESSION: 1. No pulmonary embolus 2. Bibasilar dependent atelectasis of trace right pleural effusion. 3. Cardiomegaly. 4. Ascending aortic aneurysm measuring 4 cm. Electronically signed by: Ej Slade MD 11/20/22 01:45 AM
--- NOTE | 2022-11-20 01:47 | CT Scan Report ---
Exam(s): CT C SPINE EXAM: CT Cervical Spine Without Intravenous Contrast CLINICAL HISTORY: Reason for exam: fall. TECHNIQUE: Axial computed tomography images of the cervical spine without intravenous contrast. Automated exposure control was utilized for the study. A dose lowering technique was utilized adhering to the principles of ALARA. COMPARISON: No relevant prior studies available. FINDINGS: No fracture or subluxations are noted. The vertebral body heights and alignment are preserved. No prevertebral soft tissue swelling. Note is made of multilevel cervical spondylosis with varying degrees of central canal and foramina stenoses. IMPRESSION: 1. No cervical fractures. 2. Cervical spondylosis with varying degrees of central canal and foramina stenoses. Electronically signed by: Ej Slade MD 11/20/22 01:47 AM
--- NOTE | 2022-11-20 02:06 | CT Scan Report ---
Exam(s): CT HEAD Without Contrast EXAM: CT Head Without Intravenous Contrast CLINICAL HISTORY: Reason for exam: fall. TECHNIQUE: Axial computed tomography images of the head/brain without intravenous contrast. Automated exposure control was utilized for the study. A dose lowering technique was utilized adhering to the principles of ALARA. COMPARISON: No relevant prior studies available. FINDINGS: Brain: Moderate ischemic microangiopathy. Mild cerebral volume loss. No acute intracranial hemorrhage. No acute transcortical infarct. Impression:. Head CT negative for acute intracranial abnormality. Ventricles: Unremarkable. No ventriculomegaly. Bones/joints: Unremarkable. No acute fracture. Soft tissues: Unremarkable. Sinuses: Unremarkable as visualized. No acute sinusitis. Mastoid air cells: Unremarkable as visualized. No mastoid effusion. IMPRESSION: No acute findings in the head/brain. Electronically signed by: Ej Slade MD 11/20/22 02:05 AM
[2022-11-20] MEDS ORDERED: ACETAMINOPHEN 325 MG TAB PO PRN (03:41)
[2022-11-20] MEDS ORDERED: POLYETHYLENE (MIRALAX) 17 GM PACK PO PRN (03:41)
[2022-11-20] MEDS ORDERED: MELATONIN 3 MG TAB PO PRN (03:41)
[2022-11-20 05:15] LABS: Hematocrit (blood only) 39.9 % (42.0-52.0); Hemoglobin 13.3 g/dl (14.0-18.0); Mean Corpuscular Hemoglobin 30.6 pg (25.0-34.0); Mean Corpuscular Hgb Conc 33.3 g/dL (32.0-36.0); Mean Corpuscular Volume 91.7 fL (80.0-100.0); Mean Platelet Volume 11.1 fL (9.4-12.4); Platelet Count 188 K/uL (130-400); RDW Coefficient of Variation 14.9 % (11.5-14.5); RDW Standard Deviation 50.2 fL (36.4-46.3); Red Blood Count 4.35 M/uL (4.70-6.10); White Blood Count 18.47 K/ul (4.8-10.8)
[2022-11-20 05:54] LABS: Potassium 4.4 mmol/L (3.5-5.1)
[2022-11-20 06:00] LABS: BUN Creatinine Ratio 17.8 (10-20); Creatinine Clr Calc Pharmacy 44.6 ml/min; Est GFR (African American) 55.5 ml/min; Est GFR (Non-African American) 47.9 ml/min
[2022-11-20] MEDS: PIPERACILLIN/TAZOBACTAM 4.5 GM in DEXTROSE 5% 100 ML IV SCH ×3 (06:36→22:00)
--- NOTE | 2022-11-20 08:25 | Hospitalist Progress Note ---
Date of Service November 20, 2022 Assessment & Plan (1) Acute UTI: Plan: 82yo Male with PMH HTN BPH CAD s/p CABG 2 months ago for NSTEMI, depression afib, here for fall 2/2 metabolic encephalopathy from Sepsis secondary to uti poa. Sepsis with UTI -UA concerning for infection, likely source -in ED received zosyn, will continue -CT A/P wnl -CTA chest: No pulmonary embolus Bibasilar dependent atelectasis of trace right pleural effusion. Cardiomegaly.. Ascending aortic aneurysm measuring 4 cm. -CT Head no acute changes -Ucx pending -Bcx pending CAD s/p CABG, hx NSTEMI, HTN, chronic and stable -continue aspirin, plavix -continue metoprolol hx Afib RVR rate controlled -continue amiodarone -Depression -continue lexapro HLD -continue atorvastation BPH -continue finasteride Weakness/Falls likely from metabolic encephalopathy from infection CT neck Cervical spondylosis with varying degrees of central canal and foramina stenoses. -PT/OT consulted Code Status: full (2) Sepsis: (3) Enlarged prostate with lower urinary tract symptoms (LUTS): (4) Depression: (5) S/P CABG x 3: (6) Fall: (7) Hypertension: (8) Dyslipidemia: (9) CAD (coronary artery disease): Admission and Anticipated Discharge Date Admission Date: November 20, 2022 Subjective Patient seen in the company of his family all questions answered did develop some nausea later on in the morning received Zofran Physical Exam Physical Exam: Patient awake and alert no focal complaints cardiac exam is regular with a systolic murmur lungs are clear abdomen NABS no suprapubic or CVA angle tenderness Results & Data Results & Data Vital Signs (Past 12 Hours) Vital Signs Temp Pulse Pulse Resp BP BP Pulse Ox 11/20/22 07:43 66 18 140/76 96 11/20/22 04:00 11/20/22 06:00 63 15 119/75 96 11/20/22 07:07 65 11/20/22 06:37 11/20/22 04:00 73 15 120/74 95 11/20/22 03:00 77 19 125/76 94 11/20/22 03:00 77 11/20/22 02:00 80 17 126/74 95 11/20/22 00:30 88 19 123/77 93 11/20/22 00:00 89 19 122/75 93 11/19/22 23:40 95 H 13 134/77 92 11/19/22 22:05 94 H 11/19/22 22:14 92 H 25 H 92 11/19/22 21:44 99.5 F 92 H 27 H 92 11/19/22 21:36 99.5 F 93 H 30 H 165/91 H 88 L Pulse Ox O2 Del Method O2 Del Method O2 Flow Rate O2 Flow Rate 11/20/22 07:43 Room Air 11/20/22 04:00 97 Nasal Cannula 2 11/20/22 06:00 Nasal Cannula 2 11/20/22 07:07 11/20/22 06:37 Nasal Cannula 2 11/20/22 04:00 Nasal Cannula 2 11/20/22 03:00 Nasal Cannula 2 11/20/22 03:00 11/20/22 02:00 Nasal Cannula 2 11/20/22 00:30 Nasal Cannula 2 11/20/22 00:00 Nasal Cannula 2 11/19/22 23:40 Nasal Cannula 2 11/19/22 22:05 11/19/22 22:14 Nasal Cannula 2 11/19/22 21:44 Nasal Cannula 2 11/19/22 21:36 Room Air PG Care Time/CCT Total # of Minutes Spent Total Time Spent with Patient: Total time spent is greater than 50% in coordination of care (as documented) at patient's floor/unit and/or counseling patient: Coding Level of Care Code None Diagnoses Acute UTI N39.0 Sepsis A41.9 Enlarged prostate with lower urinary tract symptoms (LUTS) N40.1 Depression F32.9 S/P CABG x 3 Z95.1 Fall W19.XXXA Encounter type: initial encounter Hypertension I10 Dyslipidemia E78.5 CAD (coronary artery disease) I25.10 (6) Fall Encounter type: initial encounter Qualified Code(s): W19.XXXA - Unspecified fall, initial encounter
--- NOTE | 2022-11-20 08:45 | XRay Report ---
XR chest 1V portable CLINICAL HISTORY: weakness, sob TECHNIQUE: Single frontal radiograph of the chest was obtained. Comparison: Comparison is made to chest radiograph 09/20/2022 FINDINGS: Median sternotomy wires are unchanged. Cardiomegaly is noted. The lungs are clear. No evidence of ple ural effusion or pneumothorax. IMPRESSION: No acute chest disease. ACT 112: Negative or not required by law. Electronically signed by: Jose Devries M.D. 11/20/2022 8:44 AM
[2022-11-20] MEDS: ASPIRIN 81 MG ECTAB PO SCH (09:50)
[2022-11-20] MEDS: FINASTERIDE 5 MG TAB PO SCH (09:50)
[2022-11-20] MEDS: AMIODARONE 200 MG TAB PO SCH (09:50)
[2022-11-20] MEDS: CLOPIDOGREL BISULFATE 75 MG TAB PO SCH (09:50)
[2022-11-20] MEDS: ESCITALOPRAM OXALATE 10 MG TAB PO SCH (09:50)
[2022-11-20] MEDS: METOPROLOL TARTRATE 25 MG TAB PO SCH ×2 (09:50→20:10)
[2022-11-20] MEDS: ATORVASTATIN 40 MG TAB PO SCH (09:50)
[2022-11-20] MEDS ORDERED: ONDANSETRON INJ 2 MG/ML 2 ML VIAL IV PRN (12:07)
--- NOTE | 2022-11-20 19:18 | Billing Data ---
Date of Service November 20, 2022 Coding Level of Care Code 43360 INT INP/OBS CARE
[2022-11-21] MEDS: PIPERACILLIN/TAZOBACTAM 4.5 GM in DEXTROSE 5% 100 ML IV SCH ×3 (05:22→21:03)
--- NOTE | 2022-11-21 07:03 | Hospitalist Progress Note ---
Date of Service November 21, 2022 Assessment & Plan (1) Acute UTI: Plan: 82yo Male with PMH HTN BPH CAD s/p CABG 2 months ago for NSTEMI, depression afib, here for fall 2/2 UTI Sepsis. Sepsis with UTI poa -lactate 3.2 downtrended to 1.6 follow cultures remains on Zosyn, gram negatives suggested, enterococcus, not yet speciated -CT A/P wnl -CT chest: No pulmonary embolus Bibasilar dependent atelectasis of trace right pleural effusion. Cardiomegaly.. Ascending aortic aneurysm measuring 4 cm. CAD s/p CABG, hx NSTEMI, HTN -BNP 305 -continue aspirin, plavix -continue metoprolol hx Afib RVR, improved -continue amiodarone -Depression -continue lexapro HLD -continue atorvastation BPH -continue finasteride Weakness/Falls secondary to metabolic encephalopathy from uti poa-resolving -CT head neck no fracture or hemorrhage, Cervical spondylosis with varying degrees of central canal and foramina stenoses. -PT/OT consulted Code Status: full DVT PPX: SCDs PT/OT: ordered (2) Sepsis: (3) Enlarged prostate with lower urinary tract symptoms (LUTS): (4) Depression: (5) S/P CABG x 3: (6) Fall: (7) Hypertension: (8) Dyslipidemia: (9) CAD (coronary artery disease): Admission and Anticipated Discharge Date Admission Date: November 20, 2022 Subjective Patient seen in the company of his all questions answered did develop some nausea 11/20 now since resolved little symptoms at this time Physical Exam Physical Exam: Patient awake and alert no focal complaints cardiac exam is regular with a systolic murmur lungs are clear abdomen NABS no suprapubic or CVA angle tenderness Results & Data Results & Data Vital Signs (Past 12 Hours) Vital Signs Temp Pulse Pulse Resp BP Pulse Ox Pulse Ox 11/21/22 06:52 55 L 11/21/22 04:00 94 11/21/22 03:57 98.6 F 76 16 106/58 L 94 11/21/22 00:57 64 11/20/22 22:24 98.6 F 63 18 104/64 93 11/20/22 22:12 11/20/22 20:09 73 16 114/68 92 11/20/22 19:29 98.2 F 76 18 89/59 L 90 O2 Del Method O2 Del Method O2 Flow Rate O2 Flow Rate 11/21/22 06:52 11/21/22 04:00 Nasal Cannula 2 11/21/22 03:57 Nasal Cannula 2 11/21/22 00:57 11/20/22 22:24 Nasal Cannula 2 11/20/22 22:12 Nasal Cannula 2 11/20/22 20:09 Nasal Cannula 2 11/20/22 19:29 Room Air Laboratory Results reviewed cbc reviewed chemistry PG Care Time/CCT Total # of Minutes Spent Total Time Spent with Patient: Total time spent is greater than 50% in coordination of care (as documented) at patient's floor/unit and/or counseling patient: Coding Level of Care Code 79104 SUB INP/OBS CARE MIN Diagnoses Acute UTI N39.0 Sepsis A41.9 Enlarged prostate with lower urinary tract symptoms (LUTS) N40.1 Depression F32.9 S/P CABG x 3 Z95.1 Fall W19.XXXA Encounter type: initial encounter Hypertension I10 Dyslipidemia E78.5 CAD (coronary artery disease) I25.10 (6) Fall Encounter type: initial encounter Qualified Code(s): W19.XXXA - Unspecified fall, initial encounter
[2022-11-21 07:36] LABS: Hematocrit (blood only) 33.7 % (42.0-52.0); Hemoglobin 11.5 g/dl (14.0-18.0); Mean Corpuscular Hemoglobin 31.3 pg (25.0-34.0); Mean Corpuscular Hgb Conc 34.1 g/dL (32.0-36.0); Mean Corpuscular Volume 91.8 fL (80.0-100.0); Mean Platelet Volume 11.2 fL (9.4-12.4); Platelet Count 170 K/uL (130-400); RDW Coefficient of Variation 15.4 % (11.5-14.5); RDW Standard Deviation 51.5 fL (36.4-46.3); Red Blood Count 3.67 M/uL (4.70-6.10); White Blood Count 13.72 K/ul (4.8-10.8)
[2022-11-21] MEDS: ASPIRIN 81 MG ECTAB PO SCH (07:52)
[2022-11-21] MEDS: METOPROLOL TARTRATE 25 MG TAB PO SCH ×2 (07:52→21:01)
[2022-11-21] MEDS: ESCITALOPRAM OXALATE 10 MG TAB PO SCH (07:52)
[2022-11-21] MEDS: CLOPIDOGREL BISULFATE 75 MG TAB PO SCH (07:52)
[2022-11-21] MEDS: ATORVASTATIN 40 MG TAB PO SCH (07:52)
[2022-11-21] MEDS: AMIODARONE 200 MG TAB PO SCH (07:52)
[2022-11-21] MEDS: FINASTERIDE 5 MG TAB PO SCH (07:52)
[2022-11-21 09:12] LABS: BUN Creatinine Ratio 17.9 (10-20); Calcium 8.8 mg/dl (8.6-10.3); Creatinine Clr Calc Pharmacy 42.1 ml/min; Est GFR (African American) 50.9 ml/min; Est GFR (Non-African American) 43.9 ml/min; Potassium 4.1 mmol/L (3.5-5.1)
[2022-11-22] MEDS: PIPERACILLIN/TAZOBACTAM 4.5 GM in DEXTROSE 5% 100 ML IV SCH (05:04)
[2022-11-22 06:44] LABS: Hematocrit (blood only) 36.1 % (42.0-52.0); Hemoglobin 12.2 g/dl (14.0-18.0); Mean Corpuscular Hemoglobin 31.2 pg (25.0-34.0); Mean Corpuscular Hgb Conc 33.8 g/dL (32.0-36.0); Mean Corpuscular Volume 92.3 fL (80.0-100.0); Mean Platelet Volume 11.1 fL (9.4-12.4); Platelet Count 175 K/uL (130-400); RDW Coefficient of Variation 14.9 % (11.5-14.5); RDW Standard Deviation 50.6 fL (36.4-46.3); Red Blood Count 3.91 M/uL (4.70-6.10); White Blood Count 7.71 K/ul (4.8-10.8)
[2022-11-22 07:20] LABS: BUN Creatinine Ratio 17.6 (10-20); Calcium 8.6 mg/dl (8.6-10.3); Creatinine Clr Calc Pharmacy 44.5 ml/min; Est GFR (Non-African American) 47.4 ml/min
[2022-11-22] MEDS: ASPIRIN 81 MG ECTAB PO SCH (08:59)
[2022-11-22] MEDS: CLOPIDOGREL BISULFATE 75 MG TAB PO SCH (09:00)
[2022-11-22] MEDS: ESCITALOPRAM OXALATE 10 MG TAB PO SCH (09:00)
[2022-11-22] MEDS: ATORVASTATIN 40 MG TAB PO SCH (09:00)
[2022-11-22] MEDS: METOPROLOL TARTRATE 25 MG TAB PO SCH (09:00)
[2022-11-22] MEDS: AMIODARONE 200 MG TAB PO SCH (09:00)
[2022-11-22] MEDS: FINASTERIDE 5 MG TAB PO SCH (09:00)
--- NOTE | 2022-11-22 16:24 | Discharge Summary ---
Date of Service November 22, 2022 Admission HPI Per Admitting Provider 82yo Male with PMH HTN BPH CAD s/p CABG 2 months ago for NSTEMI here for fall 2/2 UTI Sepsis. Patient cannot recall fall, states he feels fine denies any fever chills headache dizziness nausea vomitting chest pain abd pain diarrhea constipation pain with urination, insisted he needed to urinate immediately, produced small amount of urine in bedside urinal. Stated POA is Ly. Given patient's AMS, contacted Ly. Per Ly, last night patient went to [facility] 8 times, fell on the floor hit his head, they had neighbor come over to help get him up. Patient had nausea and vomitting at that time, noted urine smelled 'funny', did not have fever or pain. noted patient had some confusion during this time. When asked about his code status, patient stated he would want resuscitation in the event of cardiac arrest, this was confirmed with his . When asked about intubation and how it was necessary for CPR, patient declined saying he would live anyway. Clarified with , while they have not discussed intubation she states he would want to have it performed if needed. Principal Diagnosis enterococcus cloaca sepsis resolved Discharge Exam Patient stable but left urgently in the morning Discharge Data Allergies Allergy/AdvReac Type Severity Reaction Status Date / Time ragweed pollen Allergy Intermediate CONGESTION Verified 11/19/22 22:35 Tetracyclines Allergy Unknown Unknown Verified 11/19/22 22:35 Consultations 11/20/22 01:18 ED Decision to Admit Stat Ordered Studies 11/19/22 22:14 CT abd pelvis IV con only Stat CT angio chest PE protocol Stat CT cervical spine wo con Stat CT head/brain wo con Stat Hospital Course (1) Acute UTI: 82yo Male with PMH HTN BPH CAD s/p CABG 2 months ago for NSTEMI, depression afib, here for fall 2/2 UTI Sepsis. Sepsis with UTI poa -lactate 3.2 downtrended to 1.6 Enterococcus cloaca patient be discharged on Bactrim therapy -CT A/P wnl -CT chest: No pulmonary embolus Bibasilar dependent atelectasis of trace right pleural effusion. Cardiomegaly.. Ascending aortic aneurysm measuring 4 cm. CAD s/p CABG, hx NSTEMI, HTN -BNP 305 -continue aspirin, plavix -continue metoprolol hx Afib RVR, improved -continue amiodarone -Depression -continue lexapro HLD -continue atorvastation BPH -continue finasteride Weakness/Falls secondary to metabolic encephalopathy from uti poa resolved -CT head neck no fracture or hemorrhage, Cervical spondylosis with varying degrees of central canal and foramina stenoses. Patient appropriate for home Code Status: full (2) Sepsis: (3) Enlarged prostate with lower urinary tract symptoms (LUTS): (4) Depression: (5) S/P CABG x 3: (6) Fall: (7) Hypertension: (8) Dyslipidemia: (9) CAD (coronary artery disease): Total Time Total Time Spent Total Time Spent (In Minutes): It required greater than 30 minutes to prepare this patient for discharge Discharge Plan Discharge Items Patient Disposition: Home - Self-Care Reason For Visit: SEPSIS UTI Discharge Diagnosis: urinary tract infection present on admission sepsis resolved Activity: Per Instructions section Non-emergency contact: Primary Care Provider Call non-emergency contact if: your symptoms worsen Follow-up/Referrals: Teodoro Hooks DO [Primary Care Provider] - Diet: Regular Addtl Attending Provider Instructions: please drink plenty of liquids, and complete all of your antibiotics see your family doctor for follow up Pending Studies at Discharge: No Stand-Alone Forms: My [employer], Smoking Cessation Medications and DC Order Prescriptions: New sulfamethoxazole-trimethoprim [Bactrim DS] 800-160 mg tablet 1 tab PO BID 5 Days Qty: 10 0RF Continued escitalopram oxalate [Lexapro] 10 mg tablet 10 mg PO DAILY Qty: 90 1RF metoprolol tartrate 25 mg tablet 12.5 mg PO BID Qty: 90 3RF clopidogrel 75 mg tablet 75 mg PO DAILY Qty: 30 2RF amiodarone 200 mg tablet 200 mg PO QAM Qty: 90 0RF polyethylene glycol 3350 [Miralax] 17 gram/dose powder 17 g PO DAILY PRN (Reason: constipation) Qty: 119 0RF sennosides-docusate sodium [Senna with Docusate Sodium] 8.6-50 mg tablet 1 tab-cap PO DAILY PRN (Reason: constipation) Qty: 30 0RF aspirin 81 mg Tablet,Delayed Release (Dr/Ec) 81 mg PO QAM Qty: 30 0RF finasteride 5 mg tablet 5 mg PO QAM acetaminophen [Tylenol] 325 mg Tablet 650 mg PO Q6H PRN (Reason: Pain) melatonin 3 mg Tablet 6 mg PO HS PRN (Reason: Sleep) atorvastatin 40 mg tablet 40 mg PO QAM Discharge Orders: Discharge Order (Routine); Ordered 11/22/22 Ordered By: Maximiliano Beauchamp Admission Data Admit Date/Time: 11/20/22 02:10 Attending Provider: Maximiliano Beauchamp Admit Provider: Ibeth Doss Primary Care Provider: Teodoro Hooks Other Providers: Musa Larson Other Interventions: Discharge Summary Assessment (RN) Last Done: 11/22/22 09:47 Coding Level of Care Code 14830 INP/OBS DISCH >30 MIN Diagnoses Acute UTI N39.0 Sepsis A41.9 Enlarged prostate with lower urinary tract symptoms (LUTS) N40.1 Depression F32.9 S/P CABG x 3 Z95.1 Fall W19.XXXA Encounter type: initial encounter Hypertension I10 Dyslipidemia E78.5 CAD (coronary artery disease) I25.10
--- NOTE | 2022-11-22 20:04 | Electrocardiogram Report ---
Test Reason : Blood Pressure : / mmHG Vent. Rate : 099 BPM Atrial Rate : 099 BPM P-R Int : 208 ms QRS Dur : 096 ms QT Int : 360 ms P-R-T Axes : 022 -28 105 degrees QTc Int : 462 ms Normal sinus rhythm Possible Anterior infarct , age undetermined Nonspecific ST and T wave abnormality Abnormal ECG When compared with ECG of 20-SEP-2022 20:49, T wave inversion no longer evident in Anterior leads QT has lengthened Confirmed by Corbin Morrow ([id number]) on 11/22/2022 8:04:27 PM Referred By: Teodoro Hooks Confirmed By:Corbin Morrow
== END 2022-11-22 10:47 | disposition home or self-care (01) | DRG 872 ==
LOC: ED 21:41 → EDINP 11-20 02:10 → SUATTDRO 11-20 02:10 → EDINP 11-20 08:07 → 2N 11-20 09:32